=== PATIENT | male | born 1965 | race Caucasian/White ===

== ENCOUNTER 2016-12-21 17:07 | Inpatient (IN) | payer MEDICARE ==
[2016-12-21] MEDS ORDERED: Acetaminophen 325 MG Tab PO PRN (17:15)
[2016-12-21] MEDS ORDERED: Acetaminophen 650 MG Supp RECTAL PRN (17:15)
[2016-12-21] MEDS ORDERED: Naloxone 0.4 MG/ML SDV IV PRN (17:18)
[2016-12-21] MEDS ORDERED: HYDROmorphone/Normal Saline 15 MG/30 ML PCA IV PRN (17:18)
[2016-12-21] MEDS ORDERED: ALPRAZolam 0.5 MG Tab PO PRN (17:25)
[2016-12-21] MEDS ORDERED: Albuterol 8 GM Inhaler INH PRN (17:28)
[2016-12-21] MEDS: MVI, Adult with Vitamin K 10 ML, Magnesium Sulfate 2 GM, Folic Acid 1 MG, Thiamine 100 ... IV ONE ×10 (18:53→22:08)
[2016-12-21] MEDS ORDERED: Iopamidol 612 MG/ML 150 ML Bottle IV SCH (19:00)
[2016-12-21] MEDS ORDERED: Sodium Chloride 0.9% 80 ML IV SCH (19:00)
[2016-12-21] MEDS ORDERED: Iohexol 300 MG/ML 30 ML Bottle PO ONE (19:27)
[2016-12-21] MEDS ORDERED: Iohexol 647 MG/ML 10 ML SDV ONE (19:57)
[2016-12-21] MEDS ORDERED: Pantoprazole 40 MG Vial IV SCH (20:00)
[2016-12-21] MEDS ORDERED: Gabapentin 400 MG Cap PO SCH (21:00)
[2016-12-21] MEDS ORDERED: Ziprasidone HCl 20 MG Cap PO SCH (21:00)
[2016-12-21] MEDS ORDERED: BELSOMRA 20 MG PO SCH (21:00)
[2016-12-21] MEDS: Dextrose 5%-Lactated Ringers 1,000 ML IV SCH (21:01)
[2016-12-21] MEDS: Nicotine 21 MG/24 Hr Patch TRDERM SCH (23:14)
[2016-12-22] MEDS: Dextrose 5%-Lactated Ringers 1,000 ML IV SCH (03:49)
[2016-12-22 07:49] VITALS: BP 100/58
[2016-12-22] MEDS ORDERED: Gabapentin 300 MG Cap PO SCH (08:00)
[2016-12-22] MEDS ORDERED: Dextrose 5%-Lactated Ringers 1,000 ML IV SCH (08:30)
[2016-12-22] MEDS ORDERED: FLUoxetine 20 MG Cap PO SCH (09:00)
[2016-12-22] MEDS ORDERED: Docusate Sodium 100 MG Cap PO SCH (09:00)
[2016-12-22] MEDS: Nicotine 21 MG/24 Hr Patch TRDERM SCH (09:33)
[2016-12-22] MEDS ORDERED: Ziprasidone HCl 20 MG Cap PO SCH (12:00)
--- NOTE | 2016-12-23 18:38 | PN ---
DATE OF SERVICE: 12/22/2016 The patient has been afebrile with stable vital signs. Overnight, this abdominal pain has subsided. A CT scan yesterday was otherwise negative. He has been started on a regular diet and has been tolerating that well. Continue feeding him and make sure things are going okay in that regard and no further problems [place]. He likely would be ready for discharge home tomorrow. Bob Magallanes MD /[id number]
--- NOTE | 2016-12-24 04:06 | DISCH ---
ADMISSION DIAGNOSES: 1. Partial small bowel obstruction. 2. SP [id number]-[id number] gastric bypass surgery, unspecified surgical malabsorption, B12 deficiency. 3. History of addiction, anxiety, bipolar, depression, schizophrenia, panic attacks, history of psychiatric hospitalizations, suicide attempt, history of migraine headaches, seizures, arthritis, chronic constipation, hypercholesterolemia, high cholesterol, diabetes type 2. Vitamin D deficiency. DISCHARGE DIAGNOSIS: Resolution of partial small bowel obstruction. HISTORY: Dez Ambrosio is a 51-year-old male with a 2-week history of abdominal pain that was intermittent and increasingly gotten worse yesterday. He was seen in the clinic, urgent care, and was admitted to [facility] [place]. He did have a CT scan and CT scan was negative. He did have a large bowel movement and felt much better and requested to be discharged to home. REVIEW OF SYSTEMS: HEENT: Denies any headache, dizziness, or blurred vision. No upper respiratory infection signs and symptoms. NECK: Negative for neck pain or swelling. CHEST: No chest pain, shortness of breath, fast, irregular heart beat. LUNGS: No cough. ABDOMEN: Pain has improved. He denies pain now. There is no abdominal distention. Had a large bowel movement today. Denies any nausea or vomiting or excessive flatulence. : No UTI signs and symptoms. EXTREMITIES: Without joint pain or swelling. Full range of motion. NEURO: Denies any headache, dizziness, loss of coordination. SKIN: Without rash. Remainder of all 12 systems reviewed and negative for any other pertinent positives and negatives. PHYSICAL EXAMINATION: GENERAL: Dez Ambrosio is a 51-year-old male. Height is 6 feet 1 inch. Weight is 193 pounds. VITAL SIGNS: 98, 67, 16, blood pressure 100/58. HEENT: Negative. NECK: Supple. HEART: Regular rate and rhythm. LUNGS: Clear. ABDOMEN: Soft, nontender. EXTREMITIES: Without peripheral edema. NEURO: Intact. SKIN: Without rash. : Deferred. MUSCULOSKELETAL: Equal muscle strength in upper and lower extremities. DISPOSITION: Discharged to home. CONDITION: Stable and improving. FOLLOWUP: With Swathi Sanford PA-C, on 12/31/2016 at 9:00 a.m. MEDICATIONS: Resume all medications that he was taking prior to admission. DIET: Step-4 gastric bypass diet. Drink 8 to 10 glasses of water a day. ACTIVITY: Resume normal activity. Driving, may drive. Shower, may shower. Notify provider if any fever, increased pain, nausea, or vomiting. Discussed that if this pain would continue to come back that not all bowel obstructions are seen on CT scan.
== END 2016-12-22 11:00 | disposition home or self-care (01) | DRG 390 ==
LOC: JP.2SS 18:29
PROVIDERS: ADMIT Physician Assistant Medical; ATTEND Surgery
DX: K56.69 Other intestinal obstruction (principal); Z98.84 Bariatric surgery status; E53.8 Deficiency of other specified B group vitamins; F41.8 Other specified anxiety disorders; E78.5 Hyperlipidemia, unspecified; E11.9 Type 2 diabetes mellitus without complications; M19.90 Unspecified osteoarthritis, unspecified site; F17.210 Nicotine dependence, cigarettes, uncomplicated; J44.9 Chronic obstructive pulmonary disease, unspecified; K21.9 Gastro-esophageal reflux disease without esophagitis; I48.91 Unspecified atrial fibrillation
CPT/HCPCS: 36415; 74177; 82306; 82607; 82728; 82746; 83735; 84425; A9270-GY; C9113; J1170; J3411; J3475; J3490; J7030; J7042; J7120

== ENCOUNTER 2017-02-10 17:54 | Emergency (ER) | payer MEDICARE ==
[2017-02-10] MEDS ORDERED: Cyclobenzaprine 10 MG Tab PO ONE (18:36)
[2017-02-10] MEDS ORDERED: Ketorolac 30 MG/ML SDV IVPUSH ONE (18:36)
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
[2017-02-10 18:54] VITALS: BP 113/71
== END 2017-02-10 20:52 | disposition home or self-care (01) ==
LOC: JP.ED 17:54
DX: S29.019A Strain of muscle and tendon of unspecified wall of thorax, initial encounter (principal); R20.0 Anesthesia of skin; I48.91 Unspecified atrial fibrillation; E78.00 Pure hypercholesterolemia, unspecified; I10 Essential (primary) hypertension; J45.909 Unspecified asthma, uncomplicated; Z87.01 Personal history of pneumonia (recurrent); M19.90 Unspecified osteoarthritis, unspecified site; Z79.899 Other long term (current) drug therapy; F41.9 Anxiety disorder, unspecified; F32.9 Major depressive disorder, single episode, unspecified; E11.9 Type 2 diabetes mellitus without complications; Z98.890 Other specified postprocedural states; Z98.84 Bariatric surgery status; Z88.5 Allergy status to narcotic agent; Z88.8 Allergy status to other drugs, medicaments and biological substances; X58.XXXA Exposure to other specified factors, initial encounter; Y99.0 Civilian activity done for income or pay
CPT/HCPCS: 96374; 99283; A9270; J1885; 99284

== ENCOUNTER 2017-02-27 14:12 | Emergency (ER) | payer MEDICARE ==
[2017-02-27 14:27] VITALS: BP 102/60
[2017-02-27] MEDS ORDERED: Ketorolac 60 MG/2 ML SDV IM ONE (14:50)
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
== END 2017-02-27 15:30 | disposition home or self-care (01) ==
LOC: JP.ED 14:12
DX: M54.5 Low back pain (principal); M54.6 Pain in thoracic spine; I48.91 Unspecified atrial fibrillation; E78.00 Pure hypercholesterolemia, unspecified; I10 Essential (primary) hypertension; E11.9 Type 2 diabetes mellitus without complications; J45.909 Unspecified asthma, uncomplicated; M19.90 Unspecified osteoarthritis, unspecified site; G43.909 Migraine, unspecified, not intractable, without status migrainosus; F17.210 Nicotine dependence, cigarettes, uncomplicated; F41.9 Anxiety disorder, unspecified; F32.9 Major depressive disorder, single episode, unspecified; Z88.8 Allergy status to other drugs, medicaments and biological substances; Z79.899 Other long term (current) drug therapy; Z98.890 Other specified postprocedural states; Z87.01 Personal history of pneumonia (recurrent); Z98.84 Bariatric surgery status; Z88.5 Allergy status to narcotic agent
CPT/HCPCS: 96372; 99283; J1885

== ENCOUNTER 2017-07-23 00:53 | Emergency (ER) | payer MEDICARE, OTHER ==
[2017-07-23 01:15] VITALS: BP 118/58
[2017-07-23] MEDS ORDERED: HYDROmorphone 1 MG/ML Syringe IM ONE (01:51)
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
--- NOTE | 2017-07-23 09:00 | CR ---
Shoulder Comp Lt HISTORY: shoulder pain FINDINGS: No acute fracture or dislocation is identified. Bony architecture and glenohumeral joint are preserv ed. There are degenerative hypertrophic changes at the AC joint. Soft tissues are unremarkable. Left upper chest is clear. IMPRESSION: No acute left shoulder abnormality identified. There are degenerative changes at the AC joint.
== END 2017-07-23 02:04 | disposition home or self-care (01) ==
LOC: JP.ED 00:53
DX: M25.512 Pain in left shoulder (principal); I48.91 Unspecified atrial fibrillation; E78.00 Pure hypercholesterolemia, unspecified; I10 Essential (primary) hypertension; J45.909 Unspecified asthma, uncomplicated; E11.9 Type 2 diabetes mellitus without complications; F17.210 Nicotine dependence, cigarettes, uncomplicated; Z79.899 Other long term (current) drug therapy; M19.90 Unspecified osteoarthritis, unspecified site; G43.909 Migraine, unspecified, not intractable, without status migrainosus; Z98.890 Other specified postprocedural states; Z88.5 Allergy status to narcotic agent; Z98.84 Bariatric surgery status; Z88.8 Allergy status to other drugs, medicaments and biological substances
CPT/HCPCS: 73030; 96372; 99284; J1170; 99283

== ENCOUNTER 2017-10-24 23:40 | Emergency (ER) | payer MEDICARE, OTHER ==
[2017-10-25] MEDS ORDERED: Ondansetron 4 MG/2 ML SDV IVPUSH ONE (00:06)
[2017-10-25] MEDS ORDERED: Sodium Chloride 0.9% 1,000 ML IV SCH (00:15)
--- NOTE | 2017-10-25 00:31 | EDM.PDOC ---
ED HPI GENERAL MEDICAL PROBLEM - General Chief Complaint: Abdominal Pain Stated Complaint: ABD PAIN Time Seen by Provider: 10/25/17 00:29 Source of Information: Reports: Patient History Limitations: Reports: No Limitations - History of Present Illness INITIAL COMMENTS - FREE TEXT/NARRATIVE: pt arrived having severe pain in the left upper abdoman. he had a normal bm this am. he has vomited several timea. Onset: Today Duration: Hour(s): Location: Reports: Abdomen Associated Symptoms: Reports: Nausea/Vomiting, Weakness abd pain Pain Score (Numeric/FACES): 8 - Related Data Allergies Allergy/AdvReac Type Severity Reaction Status Date / Time codeine Allergy Rash Verified 09/22/17 08:44 lithium Allergy Other Verified 10/25/17 00:00 naproxen AdvReac Nausea Verified 09/22/17 08:44 simvastatin AdvReac Muscle Verified 09/22/17 08:44 Aches Home Meds: Home Meds Ziprasidone HCl [Geodon] 40 mg PO DAILY 01/15/14 [History] Ziprasidone HCl [Geodon] 80 mg PO BEDTIME 08/06/14 [History] Multivitamins with Iron/Min [Cerovite Jr] 1 tab PO BID 07/30/15 [History] Suvorexant [Belsomra] 20 mg PO BEDTIME 12/08/15 [History] ALPRAZolam 2 mg PO 5XDAY 07/12/16 [History] B12/Levomefolate Calcium/B-6 [Foltx Tablet] 1 each PO DAILY 07/12/16 [History] Benztropine Mesylate 0.5 mg PO BID 07/12/16 [History] Ca Carbonate/Vitamin D3/Vit K [Calcium + D Soft Chewable Tab] 2 tab PO DAILY [History] FLUoxetine HCl [Fluoxetine HCl] 20 mg PO DAILY 07/12/16 [History] tiZANidine [Zanaflex] 4 mg PO Q6H PRN 07/12/16 [History] Acetaminophen [Tylenol Extra Strength] 500 mg PO Q4HR 02/27/17 [History] Diclofenac Sodium [Voltaren] 50 mg PO TID 02/27/17 [History] Celecoxib [CeleBREX] 100 mg PO QID 07/23/17 [History] Amoxicillin [Amoxil] 1 tab PO BID 10/25/17 [History] Docusate Sodium [Colace] 100 mg PO Q48H 10/25/17 [History] Past Medical History HEENT History: Reports: Hard of Hearing, Impaired Vision, Otitis Media Cardiovascular History: Reports: Afib, High Cholesterol, Hypertension Respiratory History: Reports: Asthma, Bronchitis, Recurrent, Pneumonia, Recurrent Gastrointestinal History: Reports: Bowel Obstruction, Chronic Constipation, Chronic Diarrhea, Hepatitis, Hiatal Hernia Other Gastrointestinal History: Hepatitis A Genitourinary History: Reports: Renal Calculus Musculoskeletal History: Reports: Arthritis, Back Pain, Chronic, Fracture Other Musculoskeletal History: chronic leg pains, bone spurs left shoulder Neurological History: Reports: Concussion, Head Trauma, Migraines, Seizure Other Neuro History: 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 Psychiatric History: Reports: Addiction, Anxiety, Bipolar, Depression, Panic Attack, Psych Hospitalization(s), Schizophrenia, Suicide Attempt, Suicidal Ideation Endocrine/Metabolic History: Reports: Diabetes, Type II, Vitamin D Deficiency, Other (See Below) Other Endocrine/Metabolic History: not Diabetic since bariatric procedure Hematologic History: Reports: B12 Deficiency, Folic Acid Dermatologic History: Reports: Other (See Below) Other Dermatologic History: teeny adverse acollor - Infectious Disease History Infectious Disease History: Reports: Hepatitis A - Past Surgical History HEENT Surgical History: Reports: Eye Surgery, Oral Surgery GI Surgical History: Reports: Bariatric Procedure Musculoskeletal Surgical History: Reports: Shoulder Surgery, Other (See Below) Other Musculoskeletal Surgeries/Procedures:: hip surgery. left ankle surgery. left shoulder bone spurs Social & Family History - Family History Family Medical History: Noncontributory - Tobacco Use Smoking Status *Q: Current Every Day Smoker Years of Tobacco use: 35 Packs/Tins Daily: 1 Used Tobacco, but Quit: No Second Hand Smoke Exposure: Yes - Caffeine Use Caffeine Use: Reports: Coffee, Soda, Tea - Alcohol Use Days Per Week of Alcohol Use: 0 - Recreational Drug Use Recreational Drug Use: Yes Drug Use in Last 12 Months: Yes Recreational Drug Type: Reports: Marijuana/Hashish Other Recreational Drug Type: Pt. has a prescription for medical marijuana Recreational Drug Use Frequency: Daily Recreational Drug Last Use: t-1 ED ROS GENERAL - Review of Systems Review Of Systems: See Below Constitutional: Reports: No Symptoms HEENT: Reports: No Symptoms Respiratory: Reports: No Symptoms Cardiovascular: Reports: No Symptoms Endocrine: Reports: No Symptoms GI/Abdominal: Reports: Abdominal Pain, Other (pt is having severe pain in left upper abdoman. ) : Reports: No Symptoms, Other ( History of a kidney stone. ) Musculoskeletal: Reports: No Symptoms Neurological: Reports: No Symptoms ED EXAM, GI/ABD - Physical Exam Exam: See Below Text/Narrative:: pt arrived with pain in the left upper abdoman. He has not been able to keep any food down today. He ate chicken strips and a cheese burger and vomited both of them. He has a past history of a gastric by pass. Exam Limited By: No Limitations General Appearance: Alert, Anxious, Mild Distress Ears: Normal TMs Nose: Normal Inspection Throat/Mouth: Normal Inspection Head: Atraumatic Neck: Normal Inspection Respiratory/Chest: No Respiratory Distress Cardiovascular: Regular Rate, Rhythm GI/Abdominal Exam: Tender, Other (pt has tenderness in the left upper abdoman. His flat and upright reveal some dilated loop of bowel in this area. ) (Male) Exam: Deferred Back Exam: Normal Inspection Extremities: Normal Inspection Neurological: Alert, Oriented, Normal Cognition Psychiatric: Normal Affect Course - Vital Signs Last Recorded V/S: Last Vital Signs Temp 36.3 C 10/25/17 02:55 Pulse 60 10/25/17 02:55 Resp 16 10/25/17 02:55 BP 109/63 10/25/17 02:55 Pulse Ox 96 10/25/17 02:55 - Orders/Labs/Meds Orders: Active Orders 24 hr Category Date Time Status Abdomen Pelvis w Cont [CT] Stat Exams 10/25/17 01:17 Taken Abdomen Series w Chest 1V [CR] Urgent Exams 10/25/17 00:28 Taken Sodium Chloride 0.9% [Normal Saline] 1,000 ml Med 10/25/17 00:15 Active IV ASDIRECTED Medication Orders Sodium Chloride (Normal Saline) 1,000 mls @ 999 mls/hr IV ASDIRECTED NATY Last Admin: 10/25/17 00:16 Dose: 999 mls/hr Labs: Laboratory Tests 10/25/17 10/25/17 10/25/17 Range/Units 00:17 00:17 00:17 WBC 4.0 L (4.5-11.0) K/uL RBC 4.47 (4.30-5.90) M/uL Hgb 13.3 (12.0-15.0) g/dL Hct 39.3 L (40.0-54.0) % MCV 88 (80-98) fL MCH 30 (27-31) pg MCHC 34 (32-36) % Plt Count 174 (150-400) K/uL Neut % (Auto) 50 (36-66) % Lymph % (Auto) 33 (24-44) % [place] % (Auto) 16 H (2-6) % Eos % (Auto) 1 L (2-4) % Baso % (Auto) 0 (0-1) % Sodium 142 (140-148) mmol/L Potassium 3.6 (3.6-5.2) mmol/L Chloride 105 (100-108) mmol/L Carbon Dioxide 26 (21-32) mmol/L Anion Gap 11.1 (5.0-14.0) mmol/L BUN 9 (7-18) mg/dL Creatinine 0.9 (0.8-1.3) mg/dL Est Cr Clr Drug Dosing 110.97 mL/min Estimated GFR (MDRD) > 60 (>60) Glucose 99 (74-106) mg/dL Calcium 8.4 L (8.5-10.1) mg/dL Total Bilirubin 0.4 (0.2-1.0) mg/dL AST 38 H (15-37) U/L ALT 57 (12-78) U/L Alkaline Phosphatase 58 (46-116) U/L C-Reactive Protein (0.0-0.3) mg/dL Total Protein 6.2 L (6.4-8.2) g/dL Albumin 3.6 (3.4-5.0) g/dL Globulin 2.6 (2.3-3.5) g/dL Albumin/Globulin Ratio 1.4 (1.2-2.2) Amylase (25-115) U/L Lipase 190 (73-393) U/L Urine Color Urine Appearance Urine pH (4.5-8.0) Ur Specific [place] (1.008-1.030) Urine Protein (NEGATIVE) mg/dL Urine Glucose (UA) (NEGATIVE) mg/dL Urine Ketones (NEGATIVE) mg/dL Urine Occult Blood (NEGATIVE) Urine Nitrite (NEGAITVE) Urine Bilirubin (NEGATIVE) Urine Urobilinogen (NORMAL) mg/dL Ur Leukocyte Esterase (NEGATIVE) Urine RBC (0-5) Urine WBC (0-5) Ur Epithelial Cells Amorphous Sediment Urine Bacteria Urine Mucus 10/25/17 10/25/17 10/25/17 Range/Units 00:17 00:28 01:02 WBC (4.5-11.0) K/uL RBC (4.30-5.90) M/uL Hgb (12.0-15.0) g/dL Hct (40.0-54.0) % MCV (80-98) fL MCH (27-31) pg MCHC (32-36) % Plt Count (150-400) K/uL Neut % (Auto) (36-66) % Lymph % (Auto) (24-44) % [place] % (Auto) (2-6) % Eos % (Auto) (2-4) % Baso % (Auto) (0-1) % Sodium (140-148) mmol/L Potassium (3.6-5.2) mmol/L Chloride (100-108) mmol/L Carbon Dioxide (21-32) mmol/L Anion Gap (5.0-14.0) mmol/L BUN (7-18) mg/dL Creatinine (0.8-1.3) mg/dL Est Cr Clr Drug Dosing mL/min Estimated GFR (MDRD) (>60) Glucose (74-106) mg/dL Calcium (8.5-10.1) mg/dL Total Bilirubin (0.2-1.0) mg/dL AST (15-37) U/L ALT (12-78) U/L Alkaline Phosphatase (46-116) U/L C-Reactive Protein 0.37 H (0.0-0.3) mg/dL Total Protein (6.4-8.2) g/dL Albumin (3.4-5.0) g/dL Globulin (2.3-3.5) g/dL Albumin/Globulin Ratio (1.2-2.2) Amylase 34 (25-115) U/L Lipase (73-393) U/L Urine Color [place] Urine Appearance Clear Urine pH 5.0 (4.5-8.0) Ur Specific [place] 1.020 (1.008-1.030) Urine Protein 30 H (NEGATIVE) mg/dL Urine Glucose (UA) Normal (NEGATIVE) mg/dL Urine Ketones 15 H (NEGATIVE) mg/dL Urine Occult Blood Negative (NEGATIVE) Urine Nitrite Negative (NEGAITVE) Urine Bilirubin Small (NEGATIVE) Urine Urobilinogen 8 (NORMAL) mg/dL Ur Leukocyte Esterase Small (NEGATIVE) Urine RBC Not seen (0-5) Urine WBC 0-5 (0-5) Ur Epithelial Cells Not seen Amorphous Sediment Rare Urine Bacteria Not seen Urine Mucus Not seen Meds: Medications Generic Name Dose Route Start Last Admin Trade Name Freq PRN Reason Stop Dose Admin Sodium Chloride 1,000 mls @ 999 mls/hr 10/25/17 00:15 10/25/17 00:16 Normal Saline IV 999 mls/hr ASDIRECTED NATY Administration Discontinued Medications Generic Name Dose Route Start Last Admin Trade Name Freq PRN Reason Stop Dose Admin Sodium Chloride 80 mls @ 4 mls/sec 10/25/17 01:42 10/25/17 01:53 Normal Saline IV 10/25/17 01:43 4 mls/sec ASDIRECTED STA Administration Iopamidol 132 ml 10/25/17 01:42 10/25/17 01:53 Isovue-300 (61%) IV 10/25/17 01:43 150 ml . DIRECTED STA Administration Ketorolac Tromethamine 30 mg 10/25/17 03:03 Toradol IVPUSH 10/25/17 03:04 ONETIME ONE Ondansetron HCl 4 mg 10/25/17 00:06 10/25/17 00:23 Zofran IVPUSH 10/25/17 00:07 4 mg ONETIME ONE Administration Pantoprazole Sodium 40 mg 10/25/17 03:03 Protonix Iv IVPUSH 10/25/17 03:04 ONETIME ONE - Re-Assessments/Exams Free Text/Narrative Re-Assessment/Exam: 10/25/17 03:08 cat scan of the abdoman shows no acute findings. His pain is better and he is rating it a 5. 10/25/17 03:08 pt was given protonix and he was given torodol Departure - Departure Time of Disposition: 03:09 Disposition: Home, Self-Care 01 Condition: Fair Clinical Impression: Abdominal pain - Discharge Information Referrals: Pieter Kim MD [Primary Care Provider] - Forms: ED Department Discharge Care Plan Goals: stick with a full liquid diet, zoforan 4 mg q6h prn for nausea, if pain gets worse rtc. No work tomorrow. - My Orders Last 24 Hours: My Active Orders 10/25/17 00:15 Sodium Chloride 0.9% [Normal Saline] 1,000 ml IV ASDIRECTED 10/25/17 00:28 Abdomen Series w Chest 1V [CR] Urgent 10/25/17 01:17 Abdomen Pelvis w Cont [CT] Stat - Assessment/Plan Last 24 Hours: My Active Orders 10/25/17 00:15 Sodium Chloride 0.9% [Normal Saline] 1,000 ml IV ASDIRECTED 10/25/17 00:28 Abdomen Series w Chest 1V [CR] Urgent 10/25/17 01:17 Abdomen Pelvis w Cont [CT] Stat
[2017-10-25] MEDS ORDERED: Iopamidol 612 MG/ML 150 ML Bottle IV STA (01:42)
[2017-10-25] MEDS ORDERED: Sodium Chloride 0.9% 80 ML IV STA (01:42)
[2017-10-25 02:56] VITALS: BP 109/63
[2017-10-25] MEDS ORDERED: Ketorolac 30 MG/ML SDV IVPUSH ONE (03:03)
[2017-10-25] MEDS ORDERED: Pantoprazole 40 MG Vial IVPUSH ONE (03:03)
--- NOTE | 2017-10-25 10:33 | CR ---
Abdomen Series w Chest 1V HISTORY: Pain. COMPARISON: CT abdomen pelvis 12/21/2016. FINDINGS: Cardiac size is normal no focal infiltrates or effusions. The bowel gas pattern is nonobstructive. There is diffuse gas within the large and small bowel could represent mild ileus. No free air. No suspicious calcifications. Impression: 1. Negative chest. 2. Possible mild ileus bowel gas pattern. No obstruction or free air seen.
== END 2017-10-25 03:27 | disposition home or self-care (01) ==
LOC: JP.ED 23:40
DX: R10.12 Left upper quadrant pain (principal); F17.210 Nicotine dependence, cigarettes, uncomplicated; I10 Essential (primary) hypertension; E78.00 Pure hypercholesterolemia, unspecified; F41.0 Panic disorder [episodic paroxysmal anxiety]; F31.9 Bipolar disorder, unspecified; E11.9 Type 2 diabetes mellitus without complications; Z79.899 Other long term (current) drug therapy; Z88.5 Allergy status to narcotic agent; Z88.8 Allergy status to other drugs, medicaments and biological substances
CPT/HCPCS: 36415; 74022; 74177; 80053; 81001; 82150; 83690; 85025; 86140; 96361; 96374; 96375; 99285; C9113; J1885; J2405; J7030; J7040

== ENCOUNTER 2017-11-24 18:47 | Emergency (ER) | payer OTHER ==
[2017-11-24 19:08] VITALS: BP 88/53
[2017-11-24] MEDS ORDERED: Acetaminophen 500 MG Tab PO ONE (19:20)
[2017-11-24] MEDS ORDERED: Aspirin 81 MG Tab.Chew PO ONE (19:20)
--- NOTE | 2017-11-24 19:28 | EDM.PDOC ---
ED HPI GENERAL MEDICAL PROBLEM - General Chief Complaint: Cardiovascular Problem Stated Complaint: HEADACHE/BACKACHE Time Seen by Provider: 11/24/17 19:15 Source of Information: Reports: Patient, Old Records, RN History Limitations: Reports: No Limitations - History of Present Illness INITIAL COMMENTS - FREE TEXT/NARRATIVE: 52 yo male 1 ppd smoker was working this evening at [employer] (formerly known as [employer]) and developed rapid heart rate with some mild chest pain and sweating. He has a pHx of paroxysmal afib but thinks this was different. Sx's lasted about 20 min before mostly resolving. Here now he still has a mild frontal COBB and some upper back tightness. No current nausea or SOB. Denies heavy ETOH use. Is not aware of a hx of CAD. Onset: Today Onset Date: 11/24/17 Duration: Minutes: (about 20) Location: Reports: Head (forehead ache), Chest, Back (upper) Quality: Reports: Ache Severity: Moderate Improves with: Reports: Other (? time) Worsens with: Reports: Other (unknown) Context: Reports: Other (Hx reportedly of paroxysmal afib) Associated Symptoms: Reports: Chest Pain, Diaphoresis, Headaches. Denies: Fever /Chills, Nausea/Vomiting, Rash, Shortness of Breath Treatments [employer]: Reports: Other (see below) (none) Left Arm Pain Score (Numeric/FACES): 5 - Related Data Allergies Allergy/AdvReac Type Severity Reaction Status Date / Time codeine Allergy Rash Verified 09/22/17 08:44 lithium Allergy Other Verified 10/25/17 00:00 naproxen AdvReac Nausea Verified 09/22/17 08:44 simvastatin AdvReac Muscle Verified 09/22/17 08:44 Aches Home Meds: Home Meds Ziprasidone HCl [Geodon] 40 mg PO DAILY 01/15/14 [History] Ziprasidone HCl [Geodon] 80 mg PO BEDTIME 08/06/14 [History] Suvorexant [Belsomra] 20 mg PO BEDTIME 12/08/15 [History] ALPRAZolam 2 mg PO 5XDAY 07/12/16 [History] tiZANidine [Zanaflex] 4 mg PO Q6H PRN 07/12/16 [History] Acetaminophen [Tylenol Extra Strength] 500 mg PO Q4HR 02/27/17 [History] Celecoxib [CeleBREX] 100 mg PO QID 07/23/17 [History] Docusate Sodium [Colace] 100 mg PO Q48H 10/25/17 [History] Past Medical History HEENT History: Reports: Hard of Hearing, Impaired Vision, Otitis Media Cardiovascular History: Reports: Afib, High Cholesterol, Hypertension Respiratory History: Reports: Asthma, Bronchitis, Recurrent, Pneumonia, Recurrent Gastrointestinal History: Reports: Bowel Obstruction, Chronic Constipation, Chronic Diarrhea, Hepatitis, Hiatal Hernia Other Gastrointestinal History: Hepatitis A Genitourinary History: Reports: Renal Calculus Musculoskeletal History: Reports: Arthritis, Back Pain, Chronic, Fracture Other Musculoskeletal History: chronic leg pains, bone spurs left shoulder Neurological History: Reports: Concussion, Head Trauma, Migraines, Seizure Other Neuro History: 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 Psychiatric History: Reports: Addiction, Anxiety, Bipolar, Depression, Panic Attack, Psych Hospitalization(s), Schizophrenia, Suicide Attempt, Suicidal Ideation Endocrine/Metabolic History: Reports: Diabetes, Type II, Vitamin D Deficiency, Other (See Below) Other Endocrine/Metabolic History: not Diabetic since bariatric procedure Hematologic History: Reports: B12 Deficiency, Folic Acid Dermatologic History: Reports: Other (See Below) Other Dermatologic History: teeny adverse acollor - Infectious Disease History Infectious Disease History: Reports: Hepatitis A - Past Surgical History HEENT Surgical History: Reports: Eye Surgery, Oral Surgery GI Surgical History: Reports: Bariatric Procedure Musculoskeletal Surgical History: Reports: Shoulder Surgery, Other (See Below) Other Musculoskeletal Surgeries/Procedures:: hip surgery. left ankle surgery. left shoulder bone spurs Social & Family History - Family History Family Medical History: Noncontributory - Tobacco Use Smoking Status *Q: Current Every Day Smoker Years of Tobacco use: 35 Packs/Tins Daily: 1 Used Tobacco, but Quit: No Second Hand Smoke Exposure: Yes - Caffeine Use Caffeine Use: Reports: Soda - Alcohol Use Days Per Week of Alcohol Use: 0 - Recreational Drug Use Recreational Drug Use: Yes Drug Use in Last 12 Months: Yes Recreational Drug Type: Reports: Marijuana/Hashish Other Recreational Drug Type: medical Recreational Drug Use Frequency: Daily Recreational Drug Last Use: t-1 ED ROS GENERAL - Review of Systems Review Of Systems: See Below Constitutional: Reports: No Symptoms HEENT: Reports: No Symptoms Respiratory: Reports: No Symptoms Cardiovascular: Reports: Chest Pain (now gone), Lightheadedness. Denies: Dyspnea on Exertion Endocrine: Reports: No Symptoms GI/Abdominal: Reports: No Symptoms : Reports: No Symptoms Musculoskeletal: Reports: No Symptoms Skin: Reports: Diaphoresis Neurological: Reports: No Symptoms Psychiatric: Reports: No Symptoms ED EXAM, GENERAL - Physical Exam Exam: See Below Exam Limited By: No Limitations General Appearance: Alert, WD/WN, No Apparent Distress Eye Exam: Bilateral Eye: Normal Inspection Ears: Normal External Exam, Normal Canal, Hearing Grossly Normal Ear Exam: Bilateral Ear: Auricle Normal, Canal Normal Nose: Normal Inspection, Normal Mucosa, No Blood Throat/Mouth: Normal Inspection, Normal Lips, Normal Oropharynx, Normal Voice, No Airway Compromise Head: Atraumatic, Normocephalic Neck: Normal Inspection, Supple, Non-Tender Respiratory/Chest: No Respiratory Distress, Lungs Clear, Normal Breath Sounds, No Accessory Muscle Use Cardiovascular: Regular Rate, Rhythm, No Edema GI/Abdominal: Normal Bowel Sounds, Soft, Non-Tender, No Distention Back Exam: Normal Inspection. No: CVA Tenderness (R), CVA Tenderness (L) Extremities: Normal Inspection, Normal Range of Motion, Non-Tender, No Pedal Edema Neurological: Alert, Oriented, CN II-XII Intact, Normal Cognition, No Motor/ Sensory Deficits Psychiatric: Normal Affect, Normal Mood Skin Exam: Warm, Dry, Intact, Normal Color, No Rash Lymphatic: No Adenopathy EKG INTERPRETATION EKG Date: 11/24/17 Time: 19:25 Rhythm: NSR Rate (Beats/Min): 79 [place]: Normal P-Wave: Present QRS: Normal ST-T: Normal QT: Normal Comparison: No Change Course - Vital Signs Last Recorded V/S: Last Vital Signs Temp 36.1 C 11/24/17 19:06 Pulse 51 L 11/24/17 19:06 Resp 29 H 11/24/17 19:06 BP 88/53 L 11/24/17 19:06 Pulse Ox 94 L 11/24/17 19:06 - Orders/Labs/Meds Orders: Active Orders 24 hr Category Date Time Status Cardiac Monitoring [RC] .As Directed Care 11/24/17 18:58 Active EKG Documentation Completion [RC] ASDIRECTED Care 11/24/17 19:22 Active Magnesium Oxide Med 11/24/17 20:12 Once 800 mg PO ONETIME ONE Potassium Chloride [Klor-Con M20] Med 11/24/17 20:12 Once 20 meq PO ONETIME ONE EKG 12 Lead [EK] Routine Ther 11/24/17 19:22 Ordered Medication Orders Magnesium Oxide (Magnesium Oxide) 800 mg PO ONETIME ONE Stop: 11/24/17 20:13 Potassium Chloride (Klor-Con M20) 20 meq PO ONETIME ONE Stop: 11/24/17 20:13 Labs: Laboratory Tests 11/24/17 11/24/17 11/24/17 Range/Units 19:30 19:31 19:31 WBC 7.0 (4.5-11.0) K/uL RBC 3.96 L (4.30-5.90) M/uL Hgb 11.8 L (12.0-15.0) g/dL Hct 36.2 L (40.0-54.0) % MCV 91 (80-98) fL MCH 30 (27-31) pg MCHC 33 (32-36) % Plt Count 185 (150-400) K/uL Sodium 139 L (140-148) mmol/L Potassium 3.4 L (3.6-5.2) mmol/L Chloride 105 (100-108) mmol/L Carbon Dioxide 26 (21-32) mmol/L Anion Gap 11.4 (5.0-14.0) mmol/L BUN 8 (7-18) mg/dL Creatinine 0.7 L (0.8-1.3) mg/dL Est Cr Clr Drug Dosing 142.68 mL/min Estimated GFR (MDRD) > 60 (>60) Glucose 122 H (74-106) mg/dL Calcium 8.3 L (8.5-10.1) mg/dL Magnesium 1.6 L (1.8-2.4) mg/dL Troponin I (0.000-0.056) ng/mL 11/24/17 Range/Units 19:31 WBC (4.5-11.0) K/uL RBC (4.30-5.90) M/uL Hgb (12.0-15.0) g/dL Hct (40.0-54.0) % MCV (80-98) fL MCH (27-31) pg MCHC (32-36) % Plt Count (150-400) K/uL Sodium (140-148) mmol/L Potassium (3.6-5.2) mmol/L Chloride (100-108) mmol/L Carbon Dioxide (21-32) mmol/L Anion Gap (5.0-14.0) mmol/L BUN (7-18) mg/dL Creatinine (0.8-1.3) mg/dL Est Cr Clr Drug Dosing mL/min Estimated GFR (MDRD) (>60) Glucose (74-106) mg/dL Calcium (8.5-10.1) mg/dL Magnesium (1.8-2.4) mg/dL Troponin I < 0.017 (0.000-0.056) ng/mL Meds: Medications Generic Name Dose Route Start Last Admin Trade Name Freq PRN Reason Stop Dose Admin Magnesium Oxide 800 mg 11/24/17 20:12 Magnesium Oxide PO 11/24/17 20:13 ONETIME ONE Potassium Chloride 20 meq 11/24/17 20:12 Klor-Con M20 PO 11/24/17 20:13 ONETIME ONE Discontinued Medications Generic Name Dose Route Start Last Admin Trade Name Freq PRN Reason Stop Dose Admin Acetaminophen 1,000 mg 11/24/17 19:20 11/24/17 19:27 Tylenol Extra Strength PO 11/24/17 19:21 1,000 mg ONETIME ONE Administration Aspirin 324 mg 11/24/17 19:20 11/24/17 19:27 Aspirin PO 11/24/17 19:21 324 mg ONETIME ONE Administration Departure - Departure Time of Disposition: 20:20 Disposition: Home, Self-Care 01 Condition: Fair Clinical Impression: Hypomagnesemia, Hypokalemia, Tachycardia Referrals: Pieter Kim MD [Primary Care Provider] - Forms: ED Department Discharge - My Orders Last 24 Hours: My Active Orders 11/24/17 18:58 Cardiac Monitoring [RC] .As Directed 11/24/17 19:22 EKG Documentation Completion [RC] ASDIRECTED EKG 12 Lead [EK] Routine 11/24/17 20:12 Magnesium Oxide 800 mg PO ONETIME ONE Potassium Chloride [Klor-Con M20] 20 meq PO ONETIME ONE - Assessment/Plan Last 24 Hours: My Active Orders 11/24/17 18:58 Cardiac Monitoring [RC] .As Directed 11/24/17 19:22 EKG Documentation Completion [RC] ASDIRECTED EKG 12 Lead [EK] Routine 11/24/17 20:12 Magnesium Oxide 800 mg PO ONETIME ONE Potassium Chloride [Klor-Con M20] 20 meq PO ONETIME ONE
[2017-11-24] MEDS ORDERED: Magnesium Oxide 400 MG Tab PO ONE (20:12)
[2017-11-24] MEDS ORDERED: Potassium Chloride 20 MEQ Tab.ER PO ONE (20:12)
== END 2017-11-24 20:37 | disposition home or self-care (01) ==
LOC: JP.ED 18:47
DX: R00.0 Tachycardia, unspecified (principal); E87.6 Hypokalemia; E83.42 Hypomagnesemia; F17.210 Nicotine dependence, cigarettes, uncomplicated; I10 Essential (primary) hypertension; E78.00 Pure hypercholesterolemia, unspecified; F31.9 Bipolar disorder, unspecified; E11.9 Type 2 diabetes mellitus without complications; Z79.899 Other long term (current) drug therapy; Z88.8 Allergy status to other drugs, medicaments and biological substances; Z88.5 Allergy status to narcotic agent
CPT/HCPCS: 36415; 80048; 83735; 84484; 85027; 93005; 99284; A9270

== ENCOUNTER 2018-01-11 18:03 | Emergency (ER) | payer OTHER, MEDICARE ==
[2018-01-11] MEDS ORDERED: HYDROmorphone 0.5 MG/0.5 ML Syringe IVPUSH ONE ×2 (18:10→21:49)
[2018-01-11] MEDS ORDERED: Sodium Chloride 0.9% 1,000 ML IV SCH ×3 (18:15→20:45)
--- NOTE | 2018-01-11 18:41 | EDM.PDOC ---
ED HPI GENERAL MEDICAL PROBLEM - General Chief Complaint: Abdominal Pain Stated Complaint: MED[facility] Time Seen by Provider: 01/11/18 18:15 Source of Information: Reports: Patient History Limitations: Reports: No Limitations, Other (pt is having abdomanal pain. ) - History of Present Illness INITIAL COMMENTS - FREE TEXT/NARRATIVE: PT HAS A HISTORY OF 2 BOWEL OBSTRUCTIONS SINCE HIS RNY IN 2013. hE HAD A SUDDEN ONSET OF ABDOMANAL PAIN IN THE EPIGASTRIC AREA AND RADINTING TO HIS BACK tHIS ABOUT A 4-5 NOW BUT WAS VERY SEVERE EARLIER. hE DID NOT VOMIT. hE HAD A HARD STOOL FOLLOWED BY A LARGE LOOSE STOOL. hE FELT OK EARLIER IN THE DAY. Onset: Today, Sudden Duration: Hour(s):, Getting Worse Location: Reports: Abdomen Associated Symptoms: Reports: Weakness Abdomen Pain Score (Numeric/FACES): 5 - Related Data Allergies Allergy/AdvReac Type Severity Reaction Status Date / Time codeine Allergy Rash Verified 01/11/18 18:13 lithium Allergy Other Verified 01/11/18 18:13 naproxen AdvReac Nausea Verified 01/11/18 18:13 simvastatin AdvReac Muscle Verified 01/11/18 18:13 Aches Home Meds: Home Meds Ziprasidone HCl [Geodon] 40 mg PO DAILY 01/15/14 [History] Ziprasidone HCl [Geodon] 80 mg PO BEDTIME 08/06/14 [History] Suvorexant [Belsomra] 20 mg PO BEDTIME 12/08/15 [History] ALPRAZolam 2 mg PO 5XDAY 07/12/16 [History] tiZANidine [Zanaflex] 4 mg PO Q6H PRN 07/12/16 [History] Acetaminophen [Tylenol Extra Strength] 500 mg PO Q4HR 02/27/17 [History] Docusate Sodium [Colace] 100 mg PO Q48H 10/25/17 [History] Cannabis 01/11/18 [History] Past Medical History HEENT History: Reports: Hard of Hearing, Impaired Vision, Otitis Media Cardiovascular History: Reports: Afib, High Cholesterol, Hypertension Respiratory History: Reports: Asthma, Bronchitis, Recurrent, Pneumonia, Recurrent Gastrointestinal History: Reports: Bowel Obstruction, Chronic Constipation, Chronic Diarrhea, Hepatitis, Hiatal Hernia Other Gastrointestinal History: Hepatitis A Genitourinary History: Reports: Renal Calculus Musculoskeletal History: Reports: Arthritis, Back Pain, Chronic, Fracture Other Musculoskeletal History: chronic leg pains, bone spurs left shoulder Neurological History: Reports: Concussion, Head Trauma, Migraines, Seizure Other Neuro History: 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 Psychiatric History: Reports: Addiction, Anxiety, Bipolar, Depression, Panic Attack, Psych Hospitalization(s), Schizophrenia, Suicide Attempt, Suicidal Ideation Endocrine/Metabolic History: Reports: Diabetes, Type II, Vitamin D Deficiency, Other (See Below) Other Endocrine/Metabolic History: not Diabetic since bariatric procedure Hematologic History: Reports: B12 Deficiency, Folic Acid Dermatologic History: Reports: Other (See Below) Other Dermatologic History: teeny adverse acollor - Infectious Disease History Infectious Disease History: Reports: Hepatitis A - Past Surgical History HEENT Surgical History: Reports: Eye Surgery, Oral Surgery GI Surgical History: Reports: Bariatric Procedure Musculoskeletal Surgical History: Reports: Shoulder Surgery, Other (See Below) Other Musculoskeletal Surgeries/Procedures:: hip surgery. left ankle surgery. left shoulder bone spurs Social & Family History - Family History Family Medical History: Noncontributory - Tobacco Use Smoking Status *Q: Current Every Day Smoker Years of Tobacco use: 37 Packs/Tins Daily: 1 Used Tobacco, but Quit: No Second Hand Smoke Exposure: Yes - Caffeine Use Caffeine Use: Reports: Coffee, Soda, Tea - Alcohol Use Days Per Week of Alcohol Use: 0 - Recreational Drug Use Recreational Drug Use: Yes Drug Use in Last 12 Months: Yes Recreational Drug Type: Reports: Methamphetamine Other Recreational Drug Type: medical Recreational Drug Use Frequency: Daily Recreational Drug Last Use: t-1 ED ROS GENERAL - Review of Systems Review Of Systems: See Below Constitutional: Reports: No Symptoms, Weakness HEENT: Reports: No Symptoms Respiratory: Reports: No Symptoms Cardiovascular: Reports: No Symptoms Endocrine: Reports: No Symptoms GI/Abdominal: Reports: Abdominal Pain, Other (PT DEVELOPED SEVERE UPPER ABDOMANASL PAIN. tHIS PAIN DID RADIATE TO HIS BACK. ) : Reports: No Symptoms Musculoskeletal: Reports: No Symptoms, Back Pain Skin: Reports: No Symptoms Neurological: Reports: No Symptoms ED EXAM, GI/ABD - Physical Exam Exam: See Below Text/Narrative:: PT ARRIVED WITH PAIN IN THE UPPER ABDOMAN WHICH IS RADIATING TO HIS BACK. hE IS POST RNY. Exam Limited By: No Limitations General Appearance: Alert, Anxious, Moderate Distress Eyes: Bilateral: Normal Appearance, EOMI Ears: Normal TMs Nose: Normal Inspection Throat/Mouth: Normal Inspection Head: Atraumatic Neck: Normal Inspection Respiratory/Chest: No Respiratory Distress Cardiovascular: Regular Rate, Rhythm GI/Abdominal Exam: Other (PT IS TENDER IN THE UPPER ABDOMAN. HE IS NOT VOMITING. hE DID HAVE A STOOL PRIOR TO ARRIVAL. ) (Male) Exam: Deferred Rectal (Males) Exam: Deferred Back Exam: Normal Inspection Extremities: Normal Inspection Neurological: Alert, Oriented, Normal Cognition Psychiatric: Normal Affect Course - Vital Signs Last Recorded V/S: Last Vital Signs Temp 36.8 C 01/11/18 21:55 Pulse 58 L 01/11/18 21:55 Resp 14 01/11/18 21:55 BP 98/57 L 01/11/18 21:55 Pulse Ox 99 01/11/18 21:55 - Orders/Labs/Meds Orders: Active Orders 24 hr Category Date Time Status Abdomen Pelvis w Cont [CT] Stat Exams 01/11/18 19:14 Taken Abdomen Series w Chest 1V [CR] Urgent Exams 01/11/18 18:37 Taken UA W/MICROSCOPIC [URIN] Urgent Lab 01/11/18 18:53 Ordered Iopamidol [Isovue-300 (61%)] Med 01/11/18 19:45 Active 132 ml IV . DIRECTED Sodium Chloride 0.9% [Normal Saline] 1,000 ml Med 01/11/18 18:15 Active IV ASDIRECTED Sodium Chloride 0.9% [Normal Saline] 1,000 ml Med 01/11/18 19:15 Active IV ASDIRECTED Sodium Chloride 0.9% [Normal Saline] 1,000 ml Med 01/11/18 20:45 Active IV ASDIRECTED Sodium Chloride 0.9% [Normal Saline] 80 ml Med 01/11/18 19:45 Active IV ASDIRECTED Sodium Chloride 0.9% [Saline Flush] Med 01/11/18 19:38 Active 10 ml FLUSH ASDIRECTED PRN Medication Orders Sodium Chloride (Normal Saline) 1,000 mls @ 999 mls/hr IV ASDIRECTED NATY Last Admin: 01/11/18 18:34 Dose: 999 mls/hr Sodium Chloride (Normal Saline) 1,000 mls @ 999 mls/hr IV ASDIRECTED NATY Last Admin: 01/11/18 19:58 Dose: 999 mls/hr Sodium Chloride (Normal Saline) 80 mls @ 3 mls/sec IV ASDIRECTED NATY Last Admin: 01/11/18 19:52 Dose: 3 mls/sec Sodium Chloride (Normal Saline) 1,000 mls @ 999 mls/hr IV ASDIRECTED NATY Last Admin: 01/11/18 21:13 Dose: 999 mls/hr Iopamidol (Isovue-300 (61%)) 132 ml IV . DIRECTED NATY Last Admin: 01/11/18 19:52 Dose: 132 ml Sodium Chloride (Saline Flush) 10 ml FLUSH ASDIRECTED PRN PRN Reason: Keep Vein Open Last Admin: 01/11/18 19:51 Dose: 10 ml Labs: Laboratory Tests 01/11/18 01/11/18 01/11/18 Range/Units 18:21 18:21 18:53 WBC 6.5 (4.5-11.0) K/uL RBC 4.45 (4.30-5.90) M/uL Hgb 13.2 (12.0-15.0) g/dL Hct 39.7 L (40.0-54.0) % MCV 89 (80-98) fL MCH 30 (27-31) pg MCHC 33 (32-36) % Plt Count 185 (150-400) K/uL Neut % (Auto) 54 (36-66) % Lymph % (Auto) 36 (24-44) % [place] % (Auto) 8 H (2-6) % Eos % (Auto) 1 L (2-4) % Baso % (Auto) 0 (0-1) % Sodium 142 (140-148) mmol/L Potassium 4.0 (3.6-5.2) mmol/L Chloride 108 (100-108) mmol/L Carbon Dioxide 24 (21-32) mmol/L Anion Gap 10.0 (5.0-14.0) mmol/L BUN 9 (7-18) mg/dL Creatinine 1.0 (0.8-1.3) mg/dL Est Cr Clr Drug Dosing 99.88 mL/min Estimated GFR (MDRD) > 60 (>60) Glucose 106 (74-106) mg/dL Calcium 7.9 L (8.5-10.1) mg/dL Total Bilirubin 0.6 (0.2-1.0) mg/dL AST 34 (15-37) U/L ALT 49 (12-78) U/L Alkaline Phosphatase 57 (46-116) U/L Total Protein 5.9 L (6.4-8.2) g/dL Albumin 3.4 (3.4-5.0) g/dL Globulin 2.5 (2.3-3.5) g/dL Albumin/Globulin Ratio 1.4 (1.2-2.2) Amylase 62 D (25-115) U/L Lipase 645 H (73-393) U/L Urine Color Yellow Urine Appearance Clear Urine pH 6.0 (4.5-8.0) Ur Specific [place] 1.020 (1.008-1.030) Urine Protein Negative (NEGATIVE) mg/dL Urine Glucose (UA) Normal (NEGATIVE) mg/dL Urine Ketones Negative (NEGATIVE) mg/dL Urine Occult Blood Negative (NEGATIVE) Urine Nitrite Negative (NEGAITVE) Urine Bilirubin Negative (NEGATIVE) Urine Urobilinogen 4 (NORMAL) mg/dL Ur Leukocyte Esterase Negative (NEGATIVE) Urine RBC 0-5 (0-5) Urine WBC 0-5 (0-5) Ur Epithelial Cells Rare Urine Bacteria Rare Urine Mucus Not seen Meds: Medications Generic Name Dose Route Start Last Admin Trade Name Freq PRN Reason Stop Dose Admin Sodium Chloride 1,000 mls @ 999 mls/hr 01/11/18 18:15 01/11/18 18:34 Normal Saline IV 999 mls/hr ASDIRECTED NATY Administration Sodium Chloride 1,000 mls @ 999 mls/hr 01/11/18 19:15 01/11/18 19:58 Normal Saline IV 999 mls/hr ASDIRECTED NATY Administration Sodium Chloride 80 mls @ 3 mls/sec 01/11/18 19:45 01/11/18 19:52 Normal Saline IV 3 mls/sec ASDIRECTED NATY Administration Sodium Chloride 1,000 mls @ 999 mls/hr 01/11/18 20:45 01/11/18 21:13 Normal Saline IV 999 mls/hr ASDIRECTED NATY Administration Iopamidol 132 ml 01/11/18 19:45 01/11/18 19:52 Isovue-300 (61%) IV 132 ml . DIRECTED NATY Administration Sodium Chloride 10 ml 01/11/18 19:38 01/11/18 19:51 Saline Flush FLUSH 10 ml ASDIRECTED PRN Administration Keep Vein Open Discontinued Medications Generic Name Dose Route Start Last Admin Trade Name Alberto PRN Reason Stop Dose Admin Hydromorphone HCl 0.5 mg 01/11/18 18:10 01/11/18 18:36 Dilaudid IVPUSH 01/11/18 18:11 0.5 mg ONETIME ONE Administration Hydromorphone HCl 0.5 mg 01/11/18 21:49 Dilaudid IVPUSH 01/11/18 21:50 ONETIME ONE - Re-Assessments/Exams Free Text/Narrative Re-Assessment/Exam: 01/11/18 19:32 PT HAS A MILD ELEVATION IN HIS LIPASE. hIS LIVER ENZYMES ARE NORMAL. Departure - Departure Time of Disposition: 22:01 Disposition: Home, Self-Care 01 Condition: Fair Clinical Impression: Pancreatitis, acute, Abdominal pain - Discharge Information Referrals: PCP,None [Primary Care Provider] - Forms: ED Department Discharge Care Plan Goals: clear liquid diet for the next 24 hours, rtc if pain should become severe, rtc tomorrow pm for a repeat cmp and lipase and amylase and a recheckl. percocet for severe abdomanal pain. Pt was offered transfer to another facility but choose not to accept. percocet 5/325 q6h prn for pain # 8 - My Orders Last 24 Hours: My Active Orders 01/11/18 18:15 Sodium Chloride 0.9% [Normal Saline] 1,000 ml IV ASDIRECTED 01/11/18 18:37 Abdomen Series w Chest 1V [CR] Urgent 01/11/18 18:53 UA W/MICROSCOPIC [URIN] Urgent 01/11/18 19:14 Abdomen Pelvis w Cont [CT] Stat 01/11/18 19:15 Sodium Chloride 0.9% [Normal Saline] 1,000 ml IV ASDIRECTED 01/11/18 19:38 Sodium Chloride 0.9% [Saline Flush] 10 ml FLUSH ASDIRECTED PRN 01/11/18 19:45 Iopamidol [Isovue-300 (61%)] 132 ml IV . DIRECTED Sodium Chloride 0.9% [Normal Saline] 80 ml IV ASDIRECTED 01/11/18 20:45 Sodium Chloride 0.9% [Normal Saline] 1,000 ml IV ASDIRECTED - Assessment/Plan Last 24 Hours: My Active Orders 01/11/18 18:15 Sodium Chloride 0.9% [Normal Saline] 1,000 ml IV ASDIRECTED 01/11/18 18:37 Abdomen Series w Chest 1V [CR] Urgent 01/11/18 18:53 UA W/MICROSCOPIC [URIN] Urgent 01/11/18 19:14 Abdomen Pelvis w Cont [CT] Stat 01/11/18 19:15 Sodium Chloride 0.9% [Normal Saline] 1,000 ml IV ASDIRECTED 01/11/18 19:38 Sodium Chloride 0.9% [Saline Flush] 10 ml FLUSH ASDIRECTED PRN 01/11/18 19:45 Iopamidol [Isovue-300 (61%)] 132 ml IV . DIRECTED Sodium Chloride 0.9% [Normal Saline] 80 ml IV ASDIRECTED 01/11/18 20:45 Sodium Chloride 0.9% [Normal Saline] 1,000 ml IV ASDIRECTED
[2018-01-11] MEDS ORDERED: Sodium Chloride 0.9% 10 ML Syringe FLUSH PRN (19:38)
[2018-01-11] MEDS ORDERED: Iopamidol 612 MG/ML 150 ML Bottle IV SCH (19:45)
[2018-01-11] MEDS ORDERED: Sodium Chloride 0.9% 80 ML IV SCH (19:45)
[2018-01-11 21:56] VITALS: BP 98/57
--- NOTE | 2018-01-12 09:52 | CR ---
Heart size within normal limits. Pulmonary vasculature within normal limits. Large amount of fecal re sidual. Scattered air within the large and small bowel. Nonobstructive bowel gas pattern.
== END 2018-01-11 22:41 | disposition home or self-care (01) ==
LOC: JP.ED 18:03
DX: K85.90 Acute pancreatitis without necrosis or infection, unspecified (principal); I10 Essential (primary) hypertension; E11.9 Type 2 diabetes mellitus without complications; F17.210 Nicotine dependence, cigarettes, uncomplicated; Z88.5 Allergy status to narcotic agent; Z88.8 Allergy status to other drugs, medicaments and biological substances; Z79.899 Other long term (current) drug therapy
CPT/HCPCS: 36415; 74022; 74177; 80053; 81001; 82150; 83690; 85025; 96361; 96374; 96376; 99285; J1170; J7030; J7040; J7050

== ENCOUNTER 2018-01-12 20:24 | Emergency (ER) | payer OTHER, MEDICARE ==
[2018-01-12 20:37] VITALS: BP 108/64
--- NOTE | 2018-01-12 21:31 | EDM.PDOC ---
ED HPI GENERAL MEDICAL PROBLEM - General Chief Complaint: Gastrointestinal Problem Stated Complaint: PANCREATITIS Time Seen by Provider: 01/12/18 20:40 Source of Information: Reports: Patient History Limitations: Reports: No Limitations - History of Present Illness INITIAL COMMENTS - FREE TEXT/NARRATIVE: pt arrived for a recheck and he is feeling much better. He has not had any pain this pm. He has eaten lite during the day with no vomiting. Onset: Gradual Duration: Hour(s): Location: Reports: Abdomen Associated Symptoms: Reports: Nausea/Vomiting - Related Data Allergies Allergy/AdvReac Type Severity Reaction Status Date / Time codeine Allergy Rash Verified 01/11/18 18:13 lithium Allergy Other Verified 01/11/18 18:13 naproxen AdvReac Nausea Verified 01/11/18 18:13 simvastatin AdvReac Muscle Verified 01/11/18 18:13 Aches Home Meds: Home Meds Ziprasidone HCl [Geodon] 40 mg PO DAILY 01/15/14 [History] Ziprasidone HCl [Geodon] 80 mg PO BEDTIME 08/06/14 [History] Suvorexant [Belsomra] 20 mg PO BEDTIME 12/08/15 [History] ALPRAZolam 2 mg PO 5XDAY 07/12/16 [History] tiZANidine [Zanaflex] 4 mg PO Q6H PRN 07/12/16 [History] Acetaminophen [Tylenol Extra Strength] 500 mg PO Q4HR 02/27/17 [History] Docusate Sodium [Colace] 100 mg PO Q48H 10/25/17 [History] Cannabis 01/11/18 [History] Past Medical History HEENT History: Reports: Hard of Hearing, Impaired Vision, Otitis Media Cardiovascular History: Reports: Afib, High Cholesterol, Hypertension Respiratory History: Reports: Asthma, Bronchitis, Recurrent, Pneumonia, Recurrent Gastrointestinal History: Reports: Bowel Obstruction, Chronic Constipation, Chronic Diarrhea, Hepatitis, Hiatal Hernia Other Gastrointestinal History: Hepatitis A Genitourinary History: Reports: Renal Calculus Musculoskeletal History: Reports: Arthritis, Back Pain, Chronic, Fracture Other Musculoskeletal History: chronic leg pains, bone spurs left shoulder Neurological History: Reports: Concussion, Head Trauma, Migraines, Seizure Other Neuro History: 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 Psychiatric History: Reports: Addiction, Anxiety, Bipolar, Depression, Panic Attack, Psych Hospitalization(s), Schizophrenia, Suicide Attempt, Suicidal Ideation Endocrine/Metabolic History: Reports: Diabetes, Type II, Vitamin D Deficiency, Other (See Below) Other Endocrine/Metabolic History: not Diabetic since bariatric procedure Hematologic History: Reports: B12 Deficiency, Folic Acid Dermatologic History: Reports: Other (See Below) Other Dermatologic History: teeny adverse acollor - Infectious Disease History Infectious Disease History: Reports: Chicken Pox - Past Surgical History HEENT Surgical History: Reports: Eye Surgery, Oral Surgery GI Surgical History: Reports: Bariatric Procedure Musculoskeletal Surgical History: Reports: Shoulder Surgery, Other (See Below) Other Musculoskeletal Surgeries/Procedures:: hip surgery. left ankle surgery. left shoulder bone spurs Social & Family History - Family History Family Medical History: Noncontributory - Tobacco Use Smoking Status *Q: Current Status Unknown Years of Tobacco use: 37 Packs/Tins Daily: 1 Used Tobacco, but Quit: No Second Hand Smoke Exposure: Yes - Caffeine Use Caffeine Use: Reports: Coffee - Alcohol Use Days Per Week of Alcohol Use: 0 - Recreational Drug Use Recreational Drug Use: No Drug Use in Last 12 Months: Yes Recreational Drug Type: Reports: Methamphetamine Other Recreational Drug Type: medical Recreational Drug Use Frequency: Daily Recreational Drug Last Use: t-1 ED ROS GENERAL - Review of Systems Review Of Systems: See Below Constitutional: Reports: No Symptoms HEENT: Reports: No Symptoms Respiratory: Reports: No Symptoms Cardiovascular: Reports: No Symptoms Endocrine: Reports: No Symptoms GI/Abdominal: Reports: Abdominal Pain, Other (pt had an elevated lipase. ) : Reports: No Symptoms Musculoskeletal: Reports: No Symptoms Skin: Reports: No Symptoms ED EXAM, GI/ABD - Physical Exam Exam: See Below Text/Narrative:: pt arrived with upper abdomanal pain. He was nauseated. He states when the pain first started it was very severe. Exam Limited By: No Limitations General Appearance: Alert, No Apparent Distress Ears: Normal TMs Nose: Normal Inspection Throat/Mouth: Normal Inspection Head: Atraumatic Neck: Normal Inspection Respiratory/Chest: No Respiratory Distress Cardiovascular: Regular Rate, Rhythm GI/Abdominal Exam: Soft, Non-Tender (Male) Exam: Deferred Rectal (Males) Exam: Deferred Back Exam: Normal Inspection Extremities: Normal Inspection Neurological: Alert, Oriented, Normal Cognition Psychiatric: Normal Affect Course - Vital Signs Last Recorded V/S: Last Vital Signs Temp 35.7 C 01/12/18 21:09 Pulse 59 L 01/12/18 21:09 Resp 16 01/12/18 21:09 BP 108/64 01/12/18 21:09 Pulse Ox 99 01/12/18 21:09 - Orders/Labs/Meds Labs: Laboratory Tests 01/12/18 01/12/18 01/12/18 Range/Units 20:31 20:31 20:31 WBC 5.8 (4.5-11.0) K/uL RBC 4.40 (4.30-5.90) M/uL Hgb 13.3 (12.0-15.0) g/dL Hct 40.4 (40.0-54.0) % MCV 92 (80-98) fL MCH 30 (27-31) pg MCHC 33 (32-36) % Plt Count 175 (150-400) K/uL Neut % (Auto) 48 (36-66) % Lymph % (Auto) 42 (24-44) % [place] % (Auto) 8 H (2-6) % Eos % (Auto) 2 (2-4) % Baso % (Auto) 0 (0-1) % Sodium 142 (140-148) mmol/L Potassium 4.0 (3.6-5.2) mmol/L Chloride 107 (100-108) mmol/L Carbon Dioxide 29 (21-32) mmol/L Anion Gap 6.5 (5.0-14.0) mmol/L BUN 6 L (7-18) mg/dL Creatinine 0.9 (0.8-1.3) mg/dL Est Cr Clr Drug Dosing 110.97 mL/min Estimated GFR (MDRD) > 60 (>60) Glucose 77 (74-106) mg/dL Calcium 8.1 L (8.5-10.1) mg/dL Total Bilirubin 0.4 (0.2-1.0) mg/dL AST 26 (15-37) U/L ALT 42 (12-78) U/L Alkaline Phosphatase 55 (46-116) U/L Total Protein 6.0 L (6.4-8.2) g/dL Albumin 3.4 (3.4-5.0) g/dL Globulin 2.6 (2.3-3.5) g/dL Albumin/Globulin Ratio 1.3 (1.2-2.2) Amylase (25-115) U/L Lipase 189 (73-393) U/L 01/12/18 Range/Units 20:31 WBC (4.5-11.0) K/uL RBC (4.30-5.90) M/uL Hgb (12.0-15.0) g/dL Hct (40.0-54.0) % MCV (80-98) fL MCH (27-31) pg MCHC (32-36) % Plt Count (150-400) K/uL Neut % (Auto) (36-66) % Lymph % (Auto) (24-44) % [place] % (Auto) (2-6) % Eos % (Auto) (2-4) % Baso % (Auto) (0-1) % Sodium (140-148) mmol/L Potassium (3.6-5.2) mmol/L Chloride (100-108) mmol/L Carbon Dioxide (21-32) mmol/L Anion Gap (5.0-14.0) mmol/L BUN (7-18) mg/dL Creatinine (0.8-1.3) mg/dL Est Cr Clr Drug Dosing mL/min Estimated GFR (MDRD) (>60) Glucose (74-106) mg/dL Calcium (8.5-10.1) mg/dL Total Bilirubin (0.2-1.0) mg/dL AST (15-37) U/L ALT (12-78) U/L Alkaline Phosphatase (46-116) U/L Total Protein (6.4-8.2) g/dL Albumin (3.4-5.0) g/dL Globulin (2.3-3.5) g/dL Albumin/Globulin Ratio (1.2-2.2) Amylase 38 (25-115) U/L Lipase (73-393) U/L - Re-Assessments/Exams Free Text/Narrative Re-Assessment/Exam: 01/12/18 21:39 lab work was all normal. His lipase is normal. Departure - Departure Time of Disposition: 21:30 Disposition: Home, Self-Care 01 Condition: Fair Clinical Impression: Pancreatitis - Discharge Information Referrals: Pieter Kim MD [Primary Care Provider] - Forms: ED Department Discharge Care Plan Goals: rtc for a abdomanal limited Us, a follow up appt with Dr Kim, slowly advance diet, push fluds.
== END 2018-01-12 21:50 | disposition home or self-care (01) ==
LOC: JP.ED 20:24
DX: K85.90 Acute pancreatitis without necrosis or infection, unspecified (principal); E78.00 Pure hypercholesterolemia, unspecified; I10 Essential (primary) hypertension; E11.9 Type 2 diabetes mellitus without complications; Z88.5 Allergy status to narcotic agent; Z88.6 Allergy status to analgesic agent; Z88.8 Allergy status to other drugs, medicaments and biological substances; Z79.899 Other long term (current) drug therapy; Z98.84 Bariatric surgery status
CPT/HCPCS: 36415; 80053; 82150; 83690; 85025; 99283; 99284

== ENCOUNTER 2018-07-11 00:43 | Emergency (ER) | payer OTHER, MEDICARE ==
[2018-07-11] MEDS ORDERED: Ondansetron 4 MG/2 ML SDV IVPUSH ONE (01:20)
[2018-07-11] MEDS ORDERED: HYDROmorphone 0.5 MG/0.5 ML Syringe IVPUSH ONE (01:21)
--- NOTE | 2018-07-11 01:25 | EDM.PDOC ---
ED HPI GENERAL MEDICAL PROBLEM - General Chief Complaint: Abdominal Pain Stated Complaint: ABD PAIN/VALENTE PT Time Seen by Provider: 07/11/18 01:21 Source of Information: Reports: Patient History Limitations: Reports: No Limitations - History of Present Illness INITIAL COMMENTS - FREE TEXT/NARRATIVE: pt was at work at [employer] today and he suddenly developed marked upper abdomanal pain. He is post RNY. He has had pancreatitis in the past. He is rating his pain at a 8 or 9 Onset: Today, Sudden Duration: Hour(s): Location: Reports: Abdomen Quality: Reports: Sharp, Stabbing Associated Symptoms: Reports: Nausea/Vomiting abdominal pain Pain Score (Numeric/FACES): 8 - Related Data Allergies Allergy/AdvReac Type Severity Reaction Status Date / Time codeine Allergy Rash Verified 01/11/18 18:13 lithium Allergy Other Verified 01/11/18 18:13 naproxen AdvReac Nausea Verified 01/11/18 18:13 simvastatin AdvReac Muscle Verified 01/11/18 18:13 Aches Home Meds: Home Meds Ziprasidone HCl [Geodon] 40 mg PO DAILY 01/15/14 [History] Ziprasidone HCl [Geodon] 80 mg PO BEDTIME 08/06/14 [History] ALPRAZolam 2 mg PO 5XDAY 07/12/16 [History] tiZANidine [Zanaflex] 4 mg PO Q6H PRN 07/12/16 [History] Acetaminophen [Tylenol Extra Strength] 500 mg PO Q4HR 02/27/17 [History] Docusate Sodium [Colace] 100 mg PO Q48H 10/25/17 [History] Cannabis 1 vaporole INH QID PRN 01/11/18 [History] Past Medical History HEENT History: Reports: Hard of Hearing, Impaired Vision, Otitis Media Cardiovascular History: Reports: Afib, High Cholesterol, Hypertension Respiratory History: Reports: Asthma, Bronchitis, Recurrent, Pneumonia, Recurrent Gastrointestinal History: Reports: Bowel Obstruction, Chronic Constipation, Chronic Diarrhea, Hepatitis, Hiatal Hernia Other Gastrointestinal History: Hepatitis A Genitourinary History: Reports: Renal Calculus Musculoskeletal History: Reports: Arthritis, Back Pain, Chronic, Fracture Other Musculoskeletal History: chronic leg pains, bone spurs left shoulder Neurological History: Reports: Concussion, Head Trauma, Migraines, Seizure Other Neuro History: 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 Psychiatric History: Reports: Addiction, Anxiety, Bipolar, Depression, Panic Attack, Psych Hospitalization(s), Schizophrenia, Suicide Attempt, Suicidal Ideation Endocrine/Metabolic History: Reports: Diabetes, Type II, Vitamin D Deficiency, Other (See Below) Other Endocrine/Metabolic History: not Diabetic since bariatric procedure Hematologic History: Reports: B12 Deficiency, Folic Acid Dermatologic History: Reports: Other (See Below) Other Dermatologic History: teeny adverse acollor - Infectious Disease History Infectious Disease History: Reports: Chicken Pox, Hepatitis A - Past Surgical History HEENT Surgical History: Reports: Eye Surgery, Oral Surgery GI Surgical History: Reports: Bariatric Procedure, Other (See Below) Other GI Surgeries/Procedures: hiatal hernia repair Musculoskeletal Surgical History: Reports: Shoulder Surgery, Other (See Below) Other Musculoskeletal Surgeries/Procedures:: hip surgery. left ankle surgery. left shoulder bone spurs Social & Family History - Family History Family Medical History: Noncontributory - Tobacco Use Smoking Status *Q: Current Every Day Smoker Years of Tobacco use: 40 Packs/Tins Daily: 1 Used Tobacco, but Quit: No - Caffeine Use Caffeine Use: Reports: Coffee, Energy Drinks, Soda, Tea - Recreational Drug Use Recreational Drug Use: Yes Drug Use in Last 12 Months: Yes Recreational Drug Type: Reports: Marijuana/Hashish Recreational Drug Use Frequency: Daily ED ROS GENERAL - Review of Systems Review Of Systems: See Below Constitutional: Reports: No Symptoms HEENT: Reports: No Symptoms Respiratory: Reports: No Symptoms Cardiovascular: Reports: No Symptoms Endocrine: Reports: No Symptoms GI/Abdominal: Reports: Abdominal Pain, Nausea : Reports: No Symptoms Musculoskeletal: Reports: No Symptoms Skin: Reports: No Symptoms ED EXAM, GI/ABD - Physical Exam Exam: See Below Text/Narrative:: Pt arrived with pain in the epigastric area radiating to his back. He was nausested but he did not vomit. He states this pain came on suddenly. Exam Limited By: No Limitations General Appearance: Alert, Moderate Distress Ears: Normal TMs Nose: Normal Inspection Throat/Mouth: Normal Inspection Head: Atraumatic Neck: Normal Inspection Respiratory/Chest: No Respiratory Distress Cardiovascular: Regular Rate, Rhythm GI/Abdominal Exam: Tender, Other (Pt is tender in the epigastric area. ) (Male) Exam: Deferred Rectal (Males) Exam: Deferred Back Exam: Normal Inspection Extremities: Normal Inspection Neurological: Alert, Oriented, Normal Cognition Course - Vital Signs Last Recorded V/S: Last Vital Signs Temp 35.4 C 07/11/18 00:55 Pulse 52 L 07/11/18 03:38 Resp 18 07/11/18 03:38 BP 90/46 L 07/11/18 03:38 Pulse Ox 98 07/11/18 03:38 - Orders/Labs/Meds Orders: Active Orders 24 hr Category Date Time Status Abdomen Pelvis w Cont [CT] Stat Exams 07/11/18 02:15 Taken Sodium Chloride 0.9% [Normal Saline] 1,000 ml Med 07/11/18 01:30 Active IV ASDIRECTED Sodium Chloride 0.9% [Normal Saline] 1,000 ml Med 07/11/18 02:15 Active IV ASDIRECTED Medication Orders Sodium Chloride (Normal Saline) 1,000 mls @ 999 mls/hr IV ASDIRECTED NATY Last Admin: 07/11/18 01:37 Dose: 999 mls/hr Sodium Chloride (Normal Saline) 1,000 mls @ 999 mls/hr IV ASDIRECTED NATY Last Admin: 07/11/18 02:31 Dose: 999 mls/hr Labs: Laboratory Tests 07/11/18 07/11/18 07/11/18 Range/Units 01:18 01:35 01:35 WBC 8.3 (4.5-11.0) K/uL RBC 4.66 (4.30-5.90) M/uL Hgb 13.9 (12.0-15.0) g/dL Hct 40.9 (40.0-54.0) % MCV 88 (80-98) fL MCH 30 (27-31) pg MCHC 34 (32-36) % Plt Count 163 (150-400) K/uL Neut % (Auto) 68 H (36-66) % Lymph % (Auto) 23 L (24-44) % [place] % (Auto) 7 H (2-6) % Eos % (Auto) 2 (2-4) % Baso % (Auto) 0 (0-1) % Sodium 141 (140-148) mmol/L Potassium 4.1 (3.6-5.2) mmol/L Chloride 104 (100-108) mmol/L Carbon Dioxide 27 (21-32) mmol/L Anion Gap 9.8 (5.0-14.0) mmol/L BUN 11 D (7-18) mg/dL Creatinine 1.0 (0.8-1.3) mg/dL Est Cr Clr Drug Dosing 98.77 mL/min Estimated GFR (MDRD) > 60 (>60) Glucose 103 (74-106) mg/dL Lactic Acid (0.4-2.0) mmol/L Calcium 8.6 (8.5-10.1) mg/dL Total Bilirubin 0.4 (0.2-1.0) mg/dL AST 32 (15-37) U/L ALT 37 (12-78) U/L Alkaline Phosphatase 74 (46-116) U/L C-Reactive Protein (0.0-0.3) mg/dL Total Protein 6.8 (6.4-8.2) g/dL Albumin 3.7 (3.4-5.0) g/dL Globulin 3.1 (2.3-3.5) g/dL Albumin/Globulin Ratio 1.2 (1.2-2.2) Amylase (25-115) U/L Lipase (73-393) U/L Urine Color Yellow Urine Appearance Clear Urine pH 7.0 (4.5-8.0) Ur Specific [place] 1.015 (1.008-1.030) Urine Protein Negative (NEGATIVE) mg/dL Urine Glucose (UA) Normal (NEGATIVE) mg/dL Urine Ketones 15 H (NEGATIVE) mg/dL Urine Occult Blood Negative (NEGATIVE) Urine Nitrite Negative (NEGAITVE) Urine Bilirubin Negative (NEGATIVE) Urine Urobilinogen 4 (NORMAL) mg/dL Ur Leukocyte Esterase Negative (NEGATIVE) Urine RBC 0-5 (0-5) Urine WBC 0-5 (0-5) Ur Epithelial Cells Few Amorphous Sediment Not seen Urine Bacteria Rare Urine Mucus Not seen 07/11/18 07/11/18 Range/Units 01:35 03:20 WBC (4.5-11.0) K/uL RBC (4.30-5.90) M/uL Hgb (12.0-15.0) g/dL Hct (40.0-54.0) % MCV (80-98) fL MCH (27-31) pg MCHC (32-36) % Plt Count (150-400) K/uL Neut % (Auto) (36-66) % Lymph % (Auto) (24-44) % [place] % (Auto) (2-6) % Eos % (Auto) (2-4) % Baso % (Auto) (0-1) % Sodium (140-148) mmol/L Potassium (3.6-5.2) mmol/L Chloride (100-108) mmol/L Carbon Dioxide (21-32) mmol/L Anion Gap (5.0-14.0) mmol/L BUN (7-18) mg/dL Creatinine (0.8-1.3) mg/dL Est Cr Clr Drug Dosing mL/min Estimated GFR (MDRD) (>60) Glucose (74-106) mg/dL Lactic Acid 0.5 (0.4-2.0) mmol/L Calcium (8.5-10.1) mg/dL Total Bilirubin (0.2-1.0) mg/dL AST (15-37) U/L ALT (12-78) U/L Alkaline Phosphatase (46-116) U/L C-Reactive Protein 0.22 (0.0-0.3) mg/dL Total Protein (6.4-8.2) g/dL Albumin (3.4-5.0) g/dL Globulin (2.3-3.5) g/dL Albumin/Globulin Ratio (1.2-2.2) Amylase 42 (25-115) U/L Lipase 142 (73-393) U/L Urine Color Urine Appearance Urine pH (4.5-8.0) Ur Specific [place] (1.008-1.030) Urine Protein (NEGATIVE) mg/dL Urine Glucose (UA) (NEGATIVE) mg/dL Urine Ketones (NEGATIVE) mg/dL Urine Occult Blood (NEGATIVE) Urine Nitrite (NEGAITVE) Urine Bilirubin (NEGATIVE) Urine Urobilinogen (NORMAL) mg/dL Ur Leukocyte Esterase (NEGATIVE) Urine RBC (0-5) Urine WBC (0-5) Ur Epithelial Cells Amorphous Sediment Urine Bacteria Urine Mucus Meds: Medications Generic Name Dose Route Start Last Admin Trade Name Freq PRN Reason Stop Dose Admin Sodium Chloride 1,000 mls @ 999 mls/hr 07/11/18 01:30 07/11/18 01:37 Normal Saline IV 999 mls/hr ASDIRECTED NATY Administration Sodium Chloride 1,000 mls @ 999 mls/hr 07/11/18 02:15 07/11/18 02:31 Normal Saline IV 999 mls/hr ASDIRECTED NATY Administration Discontinued Medications Generic Name Dose Route Start Last Admin Trade Name Alberto PRN Reason Stop Dose Admin Hydromorphone HCl 0.5 mg 07/11/18 01:21 07/11/18 01:42 Dilaudid IVPUSH 07/11/18 01:22 0.5 mg ONETIME ONE Administration Sodium Chloride 80 mls @ 3.5 mls/sec 07/11/18 02:28 07/11/18 03:00 Normal Saline IV 07/11/18 02:29 3 mls/sec ONETIME ONE Administration Iopamidol 150 ml 07/11/18 02:30 07/11/18 03:01 Isovue-300 (61%) IV 141 ml . DIRECTED NATY Administration Ondansetron HCl 4 mg 07/11/18 01:20 07/11/18 01:41 Zofran IVPUSH 07/11/18 01:21 4 mg ONETIME ONE Administration Sodium Chloride 10 ml 07/11/18 02:28 07/11/18 03:00 Saline Flush FLUSH 07/11/18 02:29 10 ml ONETIME ONE Administration - Re-Assessments/Exams Free Text/Narrative Re-Assessment/Exam: 07/11/18 03:43 pt had a cat scan which revealed a possible volvulus that has resolved. Radiology wished for me to get a lactic acid on the pt There was no evidence of small bowel obstruction at this time. The pt is quite comfortable. 07/11/18 03:47 pt had normal lab and is now comfortable. Departure - Departure Time of Disposition: 03:45 Disposition: Home, Self-Care 01 Condition: Fair Clinical Impression: Volvulus - Discharge Information Referrals: Pieter Kim MD [Primary Care Provider] - Forms: ED Department Discharge Care Plan Goals: return if pain should reoccur Schedule a appt with Dr Magallanes regarding the recurrent pain - My Orders Last 24 Hours: My Active Orders 07/11/18 01:30 Sodium Chloride 0.9% [Normal Saline] 1,000 ml IV ASDIRECTED 07/11/18 02:15 Abdomen Pelvis w Cont [CT] Stat Sodium Chloride 0.9% [Normal Saline] 1,000 ml IV ASDIRECTED - Assessment/Plan Last 24 Hours: My Active Orders 07/11/18 01:30 Sodium Chloride 0.9% [Normal Saline] 1,000 ml IV ASDIRECTED 07/11/18 02:15 Abdomen Pelvis w Cont [CT] Stat Sodium Chloride 0.9% [Normal Saline] 1,000 ml IV ASDIRECTED
[2018-07-11] MEDS ORDERED: Sodium Chloride 0.9% 1,000 ML IV SCH ×2 (01:30→02:15)
[2018-07-11] MEDS ORDERED: Sodium Chloride 0.9% 10 ML Syringe FLUSH ONE (02:28)
[2018-07-11] MEDS ORDERED: Sodium Chloride 0.9% 80 ML IV ONE (02:28)
[2018-07-11] MEDS ORDERED: Iopamidol 612 MG/ML 150 ML Bottle IV SCH (02:30)
[2018-07-11 03:39] VITALS: BP 90/46
== END 2018-07-11 04:04 | disposition home or self-care (01) ==
LOC: JP.ED 00:43
DX: K56.2 Volvulus (principal); F17.210 Nicotine dependence, cigarettes, uncomplicated; I10 Essential (primary) hypertension; E11.9 Type 2 diabetes mellitus without complications; I48.91 Unspecified atrial fibrillation; E78.00 Pure hypercholesterolemia, unspecified; F31.9 Bipolar disorder, unspecified; F41.9 Anxiety disorder, unspecified; Z79.899 Other long term (current) drug therapy; Z88.5 Allergy status to narcotic agent; Z88.8 Allergy status to other drugs, medicaments and biological substances
CPT/HCPCS: 36415; 74177; 80053; 81001; 82150; 83605; 83690; 85025; 86140; 96361; 96374; 96375; 99284; J1170; J2405; J7030; J7050

== ENCOUNTER 2018-12-13 21:19 | Emergency (ER) | payer MEDICAID ==
[2018-12-13] MEDS ORDERED: Sodium Chloride 0.9% 1,000 ML IV SCH (21:45)
--- NOTE | 2018-12-13 22:08 | CRLCR ---
Indication: Abdomen pain Technique: Abdomen 3 view, 5 films. Comparison: Acute abdominal series 01/11/2018 Findings: Lungs are clear. Heart and mediastinum are unremarkable. Small-bowel loops are upper normal with air seen to the level of the rectosigmoid. Moderate amount of stool within the colon. Suture material within the left hemipelvis. Impression: Status post abdominal surgery with nonspecific bowel gas pattern and moderate amount of stool within the colon. Dictated by Wilfredo Noble MD @ Dec 13 2018 10:06PM Signed by Dr. Wilfredo Noble @ Dec 13 2018 10:08PM
--- NOTE | 2018-12-13 22:51 | EDM.PDOC ---
ED HPI GENERAL MEDICAL PROBLEM - General Chief Complaint: Abdominal Pain Stated Complaint: BD PAIN Time Seen by Provider: 12/13/18 22:48 Source of Information: Reports: Patient History Limitations: Reports: No Limitations - History of Present Illness INITIAL COMMENTS - FREE TEXT/NARRATIVE: pt arrived with pain in the left upper abdoman. This came on suddenly and it was very severe. He has been having normal bms. He did not vomit. He had surgery about 6 mo ago for a obstruction. Onset: Today, Sudden Duration: Hour(s): Location: Reports: Abdomen Associated Symptoms: Reports: Weakness, Other ( Pain in the left upper abdoman. ) Treatments [employer]: Reports: IV/IO Lef Upper Abdomen Pain Score (Numeric/FACES): 8 - Related Data Allergies Allergy/AdvReac Type Severity Reaction Status Date / Time codeine Allergy Rash Verified 12/13/18 22:02 lithium Allergy Seizure Verified 12/13/18 22:02 naproxen AdvReac Nausea Verified 12/13/18 22:02 simvastatin AdvReac Muscle Verified 12/13/18 22:02 Aches Home Meds: Home Meds Ziprasidone HCl [Geodon] 40 mg PO DAILY 01/15/14 [History] Ziprasidone HCl [Geodon] 80 mg PO BEDTIME 08/06/14 [History] tiZANidine [Zanaflex] 4 mg PO Q6H PRN 07/12/16 [History] Acetaminophen [Tylenol Extra Strength] 500 mg PO Q4HR 02/27/17 [History] Cannabis 1 vaporole INH QID PRN 01/11/18 [History] Ondansetron [Zofran ODT] 4 mg PO Q8HR PRN 07/26/18 [History] Vitamin A 20,000 units PO DAILY 07/26/18 [History] Zinc Gluconate [Zinc] 50 mg PO DAILY 07/26/18 [History] Docusate Sodium [Colace] 100 mg PO BID cap 07/29/18 [Rx] ALPRAZolam 2 mg PO QID PRN 12/13/18 [History] Suvorexant [Belsomra] 20 mg PO BEDTIME 12/13/18 [History] Past Medical History HEENT History: Reports: Hard of Hearing, Impaired Vision, Otitis Media Other HEENT History: wears glasses Cardiovascular History: Reports: Afib, High Cholesterol, Hypertension, SOB on Exertion, Syncope Respiratory History: Reports: Asthma, Bronchitis, Recurrent, Pneumonia, Recurrent Gastrointestinal History: Reports: Bowel Obstruction, Chronic Constipation, Chronic Diarrhea, GERD, Hepatitis, Hiatal Hernia Other Gastrointestinal History: Hepatitis A Genitourinary History: Reports: Renal Calculus, UTI, Recurrent Other Genitourinary History: kidney infections Musculoskeletal History: Reports: Arthritis, Back Pain, Chronic, Fracture Other Musculoskeletal History: chronic leg pains, bone spurs left shoulder Neurological History: Reports: Concussion, Head Trauma, Migraines, Seizure Other Neuro History: 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 Psychiatric History: Reports: Addiction, Anxiety, Bipolar, Depression, Panic Attack, Psych Hospitalization(s), Schizophrenia, Suicide Attempt, Suicidal Ideation Endocrine/Metabolic History: Reports: Diabetes, Type II, Vitamin D Deficiency, Other (See Below) Other Endocrine/Metabolic History: not Diabetic since bariatric procedure Hematologic History: Reports: B12 Deficiency, Folic Acid Dermatologic History: Reports: Other (See Below) Other Dermatologic History: teeny adverse acollor-pigmentation disorder - Infectious Disease History Infectious Disease History: Reports: Hepatitis A - Past Surgical History HEENT Surgical History: Reports: Eye Surgery, Oral Surgery Cardiovascular Surgical History: Reports: Other (See Below) Other Cardiovascular Surgeries/Procedures: cardioversions Respiratory Surgical History: Reports: None GI Surgical History: Reports: Bariatric Procedure, Other (See Below) Other GI Surgeries/Procedures: hiatal hernia repair Male Surgical History: Reports: None Endocrine Surgical History: Reports: None Neurological Surgical History: Reports: None Musculoskeletal Surgical History: Reports: Ganglion Cyst, Shoulder Surgery, Other (See Below) Other Musculoskeletal Surgeries/Procedures:: hip surgery. left ankle surgery. left shoulder bone spurs Dermatological Surgical History: Reports: None Social & Family History - Family History Family Medical History: Noncontributory Cardiac: Reports: Bypass, CAD, [place] Musculoskeletal: Reports: Arthritis, Back pain, Chronic, Neck Pain, Chronic Neurological: Reports: Alzheimers Disease Psychiatric: Reports: Anxiety, Bipolar, Depression Oncologic: Reports: Leukemia, Lymphoma - Tobacco Use Smoking Status *Q: Current Every Day Smoker Years of Tobacco use: 38 Packs/Tins Daily: 0.5 Second Hand Smoke Exposure: Yes - Caffeine Use Caffeine Use: Reports: Coffee - Recreational Drug Use Recreational Drug Use: Yes Recreational Drug Type: Reports: Marijuana/Hashish Recreational Drug Use Frequency: Daily ED ROS GENERAL - Review of Systems Review Of Systems: See Below Constitutional: Reports: No Symptoms HEENT: Reports: No Symptoms Respiratory: Reports: No Symptoms Cardiovascular: Reports: No Symptoms Endocrine: Reports: No Symptoms GI/Abdominal: Reports: Abdominal Pain, Other ( sudden onset of left upper abdomanal pain) : Reports: No Symptoms Musculoskeletal: Reports: No Symptoms Skin: Reports: No Symptoms Neurological: Reports: No Symptoms ED EXAM, GI/ABD - Physical Exam Exam: See Below Text/Narrative:: Pt arrived with pain in the left upper quadrant. He stated this came on suddenly and was very severe at first. By the time he got here the pain was much better. He still was quite tender to palpate. Exam Limited By: No Limitations General Appearance: Alert, Anxious, Moderate Distress Ears: Normal TMs Nose: Normal Inspection Throat/Mouth: Normal Inspection Head: Atraumatic Neck: Normal Inspection Respiratory/Chest: No Respiratory Distress Cardiovascular: Regular Rate, Rhythm GI/Abdominal Exam: Tender, Other (pt is very tender in the left upper abdoman. He had a flat and upright of the abdoman show some distrended bowel in the left upper abdoman. ) (Male) Exam: Deferred Rectal (Males) Exam: Deferred Back Exam: Normal Inspection Extremities: Normal Inspection Neurological: Alert, Oriented, Normal Cognition Psychiatric: Normal Affect Course - Vital Signs Last Recorded V/S: Last Vital Signs Temp 36.3 C 12/13/18 23:24 Pulse 68 12/13/18 23:24 Resp 12 12/13/18 23:24 BP 112/72 12/13/18 23:24 Pulse Ox 97 12/13/18 23:24 - Orders/Labs/Meds Labs: Laboratory Tests 12/13/18 12/13/18 12/13/18 Range/Units 21:27 21:27 22:22 WBC 6.9 (4.5-11.0) K/uL RBC 4.42 (4.30-5.90) M/uL Hgb 13.1 (12.0-15.0) g/dL Hct 39.3 L (40.0-54.0) % MCV 89 (80-98) fL MCH 30 (27-31) pg MCHC 33 (32-36) % Plt Count 184 (150-400) K/uL Neut % (Auto) 55 (36-66) % Lymph % (Auto) 33 (24-44) % [place] % (Auto) 9 H (2-6) % Eos % (Auto) 2 (2-4) % Baso % (Auto) 0 (0-1) % Sodium 140 (140-148) mmol/L Potassium 3.9 (3.6-5.2) mmol/L Chloride 104 (100-108) mmol/L Carbon Dioxide 25 (21-32) mmol/L Anion Gap 11.0 (5.0-14.0) mmol/L BUN 11 (7-18) mg/dL Creatinine 0.8 (0.8-1.3) mg/dL Est Cr Clr Drug Dosing TNP Estimated GFR (MDRD) > 60 (>60) Glucose 96 (74-106) mg/dL Calcium 8.9 (8.5-10.1) mg/dL Total Bilirubin 0.5 (0.2-1.0) mg/dL AST 39 H (15-37) U/L ALT 48 (12-78) U/L Alkaline Phosphatase 60 (46-116) U/L Total Protein 6.6 (6.4-8.2) g/dL Albumin 3.4 (3.4-5.0) g/dL Globulin 3.2 (2.3-3.5) g/dL Albumin/Globulin Ratio 1.1 L (1.2-2.2) Urine Color Yellow Urine Appearance Clear Urine pH 8.0 (4.5-8.0) Ur Specific [place] 1.005 L (1.008-1.030) Urine Protein Negative (NEGATIVE) mg/dL Urine Glucose (UA) Normal (NEGATIVE) mg/dL Urine Ketones Negative (NEGATIVE) mg/dL Urine Occult Blood Negative (NEGATIVE) Urine Nitrite Negative (NEGAITVE) Urine Bilirubin Negative (NEGATIVE) Urine Urobilinogen Normal (NORMAL) mg/dL Ur Leukocyte Esterase Negative (NEGATIVE) Urine RBC Not seen (0-5) Urine WBC 0-5 (0-5) Ur Epithelial Cells Rare Amorphous Sediment Not seen Urine Bacteria Not seen Urine Mucus Not seen Meds: Medications Discontinued Medications Generic Name Dose Route Start Last Admin Trade Name Freq PRN Reason Stop Dose Admin Sodium Chloride 1,000 mls @ 999 mls/hr 12/13/18 21:45 12/13/18 22:19 Normal Saline IV 999 mls/hr ASDIRECTED NATY Administration Sodium Chloride 80 mls @ 3.3 mls/sec 12/13/18 22:54 12/13/18 23:04 Normal Saline IV 12/13/18 22:55 3.3 mls/sec ASDIRECTED STA Administration Iopamidol 144 ml 12/13/18 22:53 12/13/18 23:03 Isovue-300 (61%) IV 12/13/18 22:54 150 ml . DIRECTED STA Administration Magnesium Citrate 296 ml 12/13/18 23:41 12/13/18 23:47 Citrate Of Magnesia PO 12/13/18 23:42 296 ml ONETIME ONE Administration - Re-Assessments/Exams Free Text/Narrative Re-Assessment/Exam: 12/13/18 23:50 pt had normal lab work He ended up with a cat scan of the abdoman which was neg except for constipation. Departure - Departure Time of Disposition: 23:44 Disposition: Home, Self-Care 01 Condition: Fair Clinical Impression: Constipation, Gastric bypass status for obesity - Discharge Information Instructions: Constipation, Adult, [id number] Referrals: PCP,None [Primary Care Provider] - Forms: ED Department Discharge Care Plan Goals: push fluids, keep stools soft, rtc if increased problems.
[2018-12-13] MEDS ORDERED: Iopamidol 612 MG/ML 150 ML Bottle IV STA (22:53)
[2018-12-13] MEDS ORDERED: Sodium Chloride 0.9% 80 ML IV STA (22:54)
[2018-12-13 23:25] VITALS: BP 112/72
--- NOTE | 2018-12-13 23:34 | CRLCT ---
INDICATION: Right upper quadrant pain TECHNIQUE: CT abdomen and pelvis acquired with IV contrast. 144 cc Isovue-300 COMPARISON: 07/11/2018 FINDINGS: Lower chest: Unremarkable. Liver: Unremarkable. Spleen: Unremarkable. Pancreas: Unremarkable. Gallbladder and bile ducts: Unremarkable. Kidneys: Unremarkable. Adrenal glands: Unremarkable. GI tract: Evidence of prior gastric bypass surgery. Colonic fecal retention involving the cecum and ascending colon. Appendix is not visualized. Vascular structures: Unremarkable. Lymph nodes: Unremarkable. Miscellaneous: Unremarkable. No free air. Small amount of free fluid in the pelvis. Pelvic Organs: Unremarkable. Bones: Unremarkable for age. IMPRESSION: Normal appearing gallbladder and common bile duct. Colonic fecal retention involving the cecum and ascending colon. Dictated by Lopez Grullon MD @ 12/13/2018 11:33:41 PM Please note that all CT scans at this facility use dose modulation, iterative reconstruction, and/or weight-based dosing when appropriate to reduce radiation dose to as low as reasonably achievable. Dictated by: Lopez Grullon MD @ 12/13/2018 23:33:50 (Electronically Signed)
[2018-12-13] MEDS ORDERED: Magnesium Citrate Solution 296 ML Bottle PO ONE (23:41)
== END 2018-12-13 23:55 | disposition home or self-care (01) ==
LOC: JP.ED 21:19
DX: K59.00 Constipation, unspecified (principal); F31.9 Bipolar disorder, unspecified; F41.9 Anxiety disorder, unspecified; F17.210 Nicotine dependence, cigarettes, uncomplicated; I10 Essential (primary) hypertension; E78.00 Pure hypercholesterolemia, unspecified; E11.9 Type 2 diabetes mellitus without complications; Z98.890 Other specified postprocedural states; Z79.899 Other long term (current) drug therapy; Z88.5 Allergy status to narcotic agent; Z88.8 Allergy status to other drugs, medicaments and biological substances
CPT/HCPCS: 36415; 74022; 74177; 80053; 81001; 85025; 96360; 99284; A9270; J7030

== ENCOUNTER 2019-03-31 16:07 | Emergency (ER) | payer MEDICAID ==
[2019-03-31 16:31] VITALS: BP 132/76
--- NOTE | 2019-03-31 17:31 | CRLCR ---
INDICATION: Pinched toe under door TECHNIQUE: Toe radiograph 3 views right 1st COMPARISON: None FINDINGS: Bone: No acute fractures or aggressive bone lesions are identified. There are 2 sclerotic lesions within the 1st distal phalanx, measuring up to 4 mm and likely due to bone islands. Joint: There irregular punctate calcifications along the medial aspect of the 1st interphalangeal joint, likely due to capsular calcifications. Soft tissue: Unremarkable. No radiopaque foreign bodies are seen. IMPRESSION: 1. No acute osseous injuries or abnormalities are noted. Dictated by Jean Marie Rodríguez MD @ 03/31/2019 5:30:36 PM Dictated by: Jean Marie Rodríguez MD @ 03/31/2019 17:30:38 (Electronically Signed)
--- NOTE | 2019-03-31 17:53 | EDM.PDOC ---
ED HPI GENERAL MEDICAL PROBLEM - General Chief Complaint: Lower Extremity Injury/Pain Stated Complaint: SHUT DOOR ON FOOT Time Seen by Provider: 03/31/19 17:30 Source of Information: Reports: Patient History Limitations: Reports: No Limitations - History of Present Illness INITIAL COMMENTS - FREE TEXT/NARRATIVE: 53-year-old male was opening a door overnight and jammed his large toe of his right foot under the door. Today he went to work and had to limp around and was having significant discomfort so he came in to have it checked. There is no deformity or significant bruising, no abrasion. Onset: Sudden Duration: Hour(s): (Injury was just over 12 hours ago) Location: Reports: Lower Extremity, Right Quality: Reports: Burning, Throbbing Worsens with: Reports: Other (Walking and weightbearing is difficult), Movement Right Feet Pain Score (Numeric/FACES): 8 - Related Data Allergies Allergy/AdvReac Type Severity Reaction Status Date / Time codeine Allergy Rash Verified 12/13/18 22:02 lithium Allergy Seizure Verified 12/13/18 22:02 naproxen AdvReac Nausea Verified 12/13/18 22:02 simvastatin AdvReac Muscle Verified 12/13/18 22:02 Aches Home Meds: Home Meds Ziprasidone HCl [Geodon] 40 mg PO DAILY 01/15/14 [History] Ziprasidone HCl [Geodon] 80 mg PO BEDTIME 08/06/14 [History] Acetaminophen [Tylenol Extra Strength] 500 mg PO Q4HR 02/27/17 [History] Cannabis 1 vaporole INH QID PRN 01/11/18 [History] Vitamin A 20,000 units PO DAILY 07/26/18 [History] ALPRAZolam 2 mg PO QID PRN 12/13/18 [History] Past Medical History HEENT History: Reports: Hard of Hearing, Impaired Vision, Otitis Media Other HEENT History: wears glasses Cardiovascular History: Reports: Afib, High Cholesterol, Hypertension, SOB on Exertion, Syncope Respiratory History: Reports: Asthma, Bronchitis, Recurrent, Pneumonia, Recurrent Gastrointestinal History: Reports: Bowel Obstruction, Chronic Constipation, Chronic Diarrhea, GERD, Hepatitis, Hiatal Hernia Other Gastrointestinal History: Hepatitis A Genitourinary History: Reports: Renal Calculus, UTI, Recurrent Other Genitourinary History: kidney infections Musculoskeletal History: Reports: Arthritis, Back Pain, Chronic, Fracture Other Musculoskeletal History: chronic leg pains, bone spurs left shoulder Neurological History: Reports: Concussion, Head Trauma, Migraines, Seizure Other Neuro History: 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 Psychiatric History: Reports: Addiction, Anxiety, Bipolar, Depression, Panic Attack, Psych Hospitalization(s), Schizophrenia, Suicide Attempt, Suicidal Ideation Endocrine/Metabolic History: Reports: Diabetes, Type II, Vitamin D Deficiency, Other (See Below) Other Endocrine/Metabolic History: not Diabetic since bariatric procedure Hematologic History: Reports: B12 Deficiency, Folic Acid Dermatologic History: Reports: Other (See Below) Other Dermatologic History: teeny adverse acollor-pigmentation disorder - Infectious Disease History Infectious Disease History: Reports: Hepatitis A - Past Surgical History HEENT Surgical History: Reports: Eye Surgery, Oral Surgery Cardiovascular Surgical History: Reports: Other (See Below) Other Cardiovascular Surgeries/Procedures: cardioversions Respiratory Surgical History: Reports: None GI Surgical History: Reports: Bariatric Procedure, Other (See Below) Other GI Surgeries/Procedures: hiatal hernia repair Male Surgical History: Reports: None Endocrine Surgical History: Reports: None Neurological Surgical History: Reports: None Musculoskeletal Surgical History: Reports: Ganglion Cyst, Shoulder Surgery, Other (See Below) Other Musculoskeletal Surgeries/Procedures:: hip surgery. left ankle surgery. left shoulder bone spurs Dermatological Surgical History: Reports: None Social & Family History - Family History Family Medical History: Noncontributory Cardiac: Reports: Bypass, CAD, [place] Musculoskeletal: Reports: Arthritis, Back pain, Chronic, Neck Pain, Chronic Neurological: Reports: Alzheimers Disease Psychiatric: Reports: Anxiety, Bipolar, Depression Oncologic: Reports: Leukemia, Lymphoma - Tobacco Use Smoking Status *Q: Current Every Day Smoker Years of Tobacco use: 38 Packs/Tins Daily: 1 - Caffeine Use Caffeine Use: Reports: Coffee, Soda, Tea - Recreational Drug Use Recreational Drug Use: No Review of Systems - Review of Systems Review Of Systems: See Below Constitutional: Denies: Fever Respiratory: Denies: Shortness of Breath Cardiovascular: Denies: Chest Pain Skin: Denies: Bruising Neurological: Denies: Paresthesia ED EXAM, GENERAL - Physical Exam Exam: See Below Exam Limited By: No Limitations General Appearance: Alert, No Apparent Distress Head: Atraumatic Respiratory/Chest: No Respiratory Distress Extremities: Other (Exam is otherwise limited to the lower extremities. The toes appear symmetric, there is slight erythema of the dorsal aspect of the right toe but no deformity, bruising or swelling. There is tenderness to the proximal phalanx with palpation.) Course - Vital Signs Last Recorded V/S: Last Vital Signs Temp 97.7 F 03/31/19 16:25 Pulse 72 03/31/19 16:25 Resp 14 03/31/19 16:25 BP 132/76 03/31/19 16:25 Pulse Ox 97 03/31/19 16:25 - Re-Assessments/Exams Free Text/Narrative Re-Assessment/Exam: 03/31/19 17:51 An x-ray was obtained and shows no fracture. Patient was insistent that he was unable to work because of the significant pain. I wrote him a note that he can take to work that says he injured his toe but he will have to decide if he is going to work. Ibuprofen and elevation may be helpful. Departure - Departure Time of Disposition: 18:15 Disposition: Home, Self-Care 01 Clinical Impression: Contusion, toe Qualifiers: Encounter type: initial encounter Toe: great toe Damage to nail status: without damage Laterality: right Qualified Code(s): S90.111A - Contusion of right great toe without damage to nail, initial encounter - Discharge Information Instructions: Contusion, [id number] Referrals: Pieter Kim MD [Primary Care Provider] - Forms: ED Department Discharge Care Plan Goals: Ibuprofen and elevation may help, increase activity as tolerated and resume regular activities as soon as possible. Recheck next week if not improving satisfactorily.
== END 2019-03-31 18:15 | disposition home or self-care (01) ==
LOC: JP.ED 16:07
DX: S90.111A Contusion of right great toe without damage to nail, initial encounter (principal); I48.91 Unspecified atrial fibrillation; E78.00 Pure hypercholesterolemia, unspecified; I10 Essential (primary) hypertension; E11.9 Type 2 diabetes mellitus without complications; F17.210 Nicotine dependence, cigarettes, uncomplicated; F41.9 Anxiety disorder, unspecified; F31.9 Bipolar disorder, unspecified; W23.0XXA Caught, crushed, jammed, or pinched between moving objects, initial encounter; Z88.5 Allergy status to narcotic agent; Z88.8 Allergy status to other drugs, medicaments and biological substances; Z79.899 Other long term (current) drug therapy
CPT/HCPCS: 73660-T5; 99282; 99283-25

== ENCOUNTER 2019-04-11 14:01 | Emergency (ER) | payer SELFPAY ==
--- NOTE | 2019-04-11 14:30 | EDM.PDOC ---
ED HPI GENERAL MEDICAL PROBLEM - General Chief Complaint: Laceration Stated Complaint: CUT FOREHEAD Time Seen by Provider: 04/11/19 14:20 Source of Information: Reports: Patient History Limitations: Reports: No Limitations - History of Present Illness INITIAL COMMENTS - FREE TEXT/NARRATIVE: pt arrived after hitting the corner of the frier with the top of his head. He was not knocked out. He did have a fair amout of bleeding he thought he had a good sized laceration He had his last tetanus In 2011, so he is current. Onset: Today Duration: Hour(s): Location: Reports: Head Associated Symptoms: Reports: No Other Symptoms - Related Data Allergies Allergy/AdvReac Type Severity Reaction Status Date / Time codeine Allergy Rash Verified 04/11/19 14:22 lithium Allergy Seizure Verified 04/11/19 14:22 naproxen AdvReac Nausea Verified 04/11/19 14:22 simvastatin AdvReac Muscle Verified 04/11/19 14:22 Aches Home Meds: Home Meds Ziprasidone HCl [Geodon] 40 mg PO DAILY 01/15/14 [History] Ziprasidone HCl [Geodon] 80 mg PO BEDTIME 08/06/14 [History] Acetaminophen [Tylenol Extra Strength] 500 mg PO Q4HR 02/27/17 [History] Cannabis 1 vaporole INH QID PRN 01/11/18 [History] Vitamin A 20,000 units PO DAILY 07/26/18 [History] ALPRAZolam 2 mg PO QID PRN 12/13/18 [History] Past Medical History HEENT History: Reports: Hard of Hearing, Impaired Vision, Otitis Media Other HEENT History: wears glasses Cardiovascular History: Reports: Afib, High Cholesterol, Hypertension, SOB on Exertion, Syncope Respiratory History: Reports: Asthma, Bronchitis, Recurrent, Pneumonia, Recurrent Gastrointestinal History: Reports: Bowel Obstruction, Chronic Constipation, Chronic Diarrhea, GERD, Hepatitis, Hiatal Hernia Other Gastrointestinal History: Hepatitis A Genitourinary History: Reports: Renal Calculus, UTI, Recurrent Other Genitourinary History: kidney infections Musculoskeletal History: Reports: Arthritis, Back Pain, Chronic, Fracture Other Musculoskeletal History: chronic leg pains, bone spurs left shoulder Neurological History: Reports: Concussion, Head Trauma, Migraines, Seizure Other Neuro History: 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 Psychiatric History: Reports: Addiction, Anxiety, Bipolar, Depression, Panic Attack, Psych Hospitalization(s), Schizophrenia, Suicide Attempt, Suicidal Ideation Endocrine/Metabolic History: Reports: Diabetes, Type II, Vitamin D Deficiency, Other (See Below) Other Endocrine/Metabolic History: not Diabetic since bariatric procedure Hematologic History: Reports: B12 Deficiency, Folic Acid Dermatologic History: Reports: Other (See Below) Other Dermatologic History: teeny adverse acollor-pigmentation disorder - Infectious Disease History Infectious Disease History: Reports: Hepatitis A - Past Surgical History HEENT Surgical History: Reports: Eye Surgery, Oral Surgery Cardiovascular Surgical History: Reports: Other (See Below) Other Cardiovascular Surgeries/Procedures: cardioversions Respiratory Surgical History: Reports: None GI Surgical History: Reports: Bariatric Procedure, Other (See Below) Other GI Surgeries/Procedures: hiatal hernia repair Male Surgical History: Reports: None Endocrine Surgical History: Reports: None Neurological Surgical History: Reports: None Musculoskeletal Surgical History: Reports: Ganglion Cyst, Shoulder Surgery, Other (See Below) Other Musculoskeletal Surgeries/Procedures:: hip surgery. left ankle surgery. left shoulder bone spurs Dermatological Surgical History: Reports: None Social & Family History - Family History Family Medical History: Noncontributory Cardiac: Reports: Bypass, CAD, [place] Musculoskeletal: Reports: Arthritis, Back pain, Chronic, Neck Pain, Chronic Neurological: Reports: Alzheimers Disease Psychiatric: Reports: Anxiety, Bipolar, Depression Oncologic: Reports: Leukemia, Lymphoma - Caffeine Use Caffeine Use: Reports: Coffee, Soda, Tea ED ROS GENERAL - Review of Systems Review Of Systems: See Below Constitutional: Reports: No Symptoms HEENT: Reports: Other (pt hit the top of his head with the corner of the frier. -- this was at the [facility]. ) Cardiovascular: Reports: No Symptoms Endocrine: Reports: No Symptoms GI/Abdominal: Reports: No Symptoms : Reports: No Symptoms Musculoskeletal: Reports: No Symptoms ED EXAM, SKIN/RASH Exam: See Below Text/Narrative:: pt had some bleeding from the top of his head and in looking he just had a tiny puncture wound from the corner. Exam Limited By: No Limitations General Appearance: Alert, Anxious, Moderate Distress Ears: Normal TMs Nose: Normal Inspection Throat/Mouth: Normal Inspection Head: Other (pt has a tiny puncture wound which did do some bleeding this will not require sutures. ) Neck: Normal Inspection Respiratory/Chest: No Respiratory Distress Cardiovascular: Regular Rate, Rhythm GI/Abdominal: Soft, Non-Tender Course - Orders/Labs/Meds Meds: Medications Discontinued Medications Generic Name Dose Route Start Last Admin Trade Name Alberto PRN Reason Stop Dose Admin Bacitracin 1 dose 04/11/19 14:41 04/11/19 14:49 Bacitracin Oint 1 Gm TOP 04/11/19 14:42 1 dose ONETIME ONE Administration - Re-Assessments/Exams Free Text/Narrative Re-Assessment/Exam: 04/11/19 14:46 pt is current with his tetanus. The area was cleaned and bacatracin was applied. Departure - Departure Time of Disposition: 14:47 Disposition: Home, Self-Care 01 Condition: Fair Clinical Impression: Puncture wound of head - Discharge Information Referrals: Pieter Kim MD [Primary Care Provider] - Forms: ED Department Discharge Care Plan Goals: apply ointment to the area.
[2019-04-11] MEDS ORDERED: Bacitracin Oint 1 GM U/D Packet TOP ONE (14:41)
[2019-04-11 14:59] VITALS: BP 105/70
== END 2019-04-11 15:11 | disposition home or self-care (01) ==
LOC: JP.ED 14:01
DX: S01.83XA Puncture wound without foreign body of other part of head, initial encounter (principal); E78.00 Pure hypercholesterolemia, unspecified; I10 Essential (primary) hypertension; E11.9 Type 2 diabetes mellitus without complications; I48.91 Unspecified atrial fibrillation; Z88.5 Allergy status to narcotic agent; Z88.8 Allergy status to other drugs, medicaments and biological substances; Z79.899 Other long term (current) drug therapy; W22.8XXA Striking against or struck by other objects, initial encounter; Y92.511 Restaurant or cafe as the place of occurrence of the external cause
CPT/HCPCS: 99282

== ENCOUNTER 2019-05-07 16:52 | Emergency (ER) | payer MEDICAID ==
[2019-05-07 16:55] VITALS: BP 121/70; PULSE 62
[2019-05-07] MEDS ORDERED: Ziprasidone HCl 20 MG Cap PO ONE (17:07)
--- NOTE | 2019-05-07 17:19 | EDM.PDOC ---
ED HPI GENERAL MEDICAL PROBLEM - General Chief Complaint: Neck Problem Stated Complaint: FAINTED AFTER WORK Time Seen by Provider: 05/07/19 17:03 Source of Information: Reports: Patient History Limitations: Reports: No Limitations - History of Present Illness INITIAL COMMENTS - FREE TEXT/NARRATIVE: states he was at work today when his legs just gave out; he fell onto the floor , his buttocks first, more on the right side, resulting in his right hip pain. He also has right scapular pain but this is chronic. He had recent MRI of his neck which shows severe narrowing of spinal canal, moderate to severe bilateral foraminal narrowing, impingement of c6 nerve roots , etc... It is recommended he be seen by neurosurgery; he isn't able to get in at this time due to no insurance. Onset: Today Location: Reports: Upper Extremity, Right, Lower Extremity, Right Quality: Reports: Stabbing Severity: Moderate Improves with: Reports: None Worsens with: Reports: None Associated Symptoms: Reports: Weakness Right Generalized Pain Score (Numeric/FACES): 7 - Related Data Allergies Allergy/AdvReac Type Severity Reaction Status Date / Time codeine Allergy Rash Verified 04/11/19 14:22 lithium Allergy Seizure Verified 04/11/19 14:22 naproxen AdvReac Nausea Verified 04/11/19 14:22 simvastatin AdvReac Muscle Verified 04/11/19 14:22 Aches Home Meds: Home Meds Ziprasidone HCl [Geodon] 40 mg PO DAILY 01/15/14 [History] Ziprasidone HCl [Geodon] 80 mg PO BEDTIME 08/06/14 [History] Acetaminophen [Tylenol Extra Strength] 500 mg PO Q4HR 02/27/17 [History] Cannabis 1 vaporole INH QID PRN 01/11/18 [History] Vitamin A 20,000 units PO DAILY 07/26/18 [History] ALPRAZolam 2 mg PO QID PRN 12/13/18 [History] Past Medical History HEENT History: Reports: Hard of Hearing, Impaired Vision, Otitis Media Other HEENT History: wears glasses Cardiovascular History: Reports: Afib, High Cholesterol, Hypertension, SOB on Exertion, Syncope Respiratory History: Reports: Asthma, Bronchitis, Recurrent, Pneumonia, Recurrent Gastrointestinal History: Reports: Bowel Obstruction, Chronic Constipation, Chronic Diarrhea, GERD, Hepatitis, Hiatal Hernia Other Gastrointestinal History: Hepatitis A Genitourinary History: Reports: Renal Calculus, UTI, Recurrent Other Genitourinary History: kidney infections Musculoskeletal History: Reports: Arthritis, Back Pain, Chronic, Fracture Other Musculoskeletal History: chronic leg pains, bone spurs left shoulder Neurological History: Reports: Concussion, Head Trauma, Migraines, Seizure Other Neuro History: 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 Psychiatric History: Reports: Addiction, Anxiety, Bipolar, Depression, Panic Attack, Psych Hospitalization(s), Schizophrenia, Suicide Attempt, Suicidal Ideation Endocrine/Metabolic History: Reports: Diabetes, Type II, Vitamin D Deficiency, Other (See Below) Other Endocrine/Metabolic History: not Diabetic since bariatric procedure Hematologic History: Reports: B12 Deficiency, Folic Acid Dermatologic History: Reports: Other (See Below) Other Dermatologic History: teeny adverse acollor-pigmentation disorder - Infectious Disease History Infectious Disease History: Reports: Hepatitis A - Past Surgical History HEENT Surgical History: Reports: Eye Surgery, Oral Surgery Cardiovascular Surgical History: Reports: Other (See Below) Other Cardiovascular Surgeries/Procedures: cardioversions Respiratory Surgical History: Reports: None GI Surgical History: Reports: Bariatric Procedure, Other (See Below) Other GI Surgeries/Procedures: hiatal hernia repair Male Surgical History: Reports: None Endocrine Surgical History: Reports: None Neurological Surgical History: Reports: None Musculoskeletal Surgical History: Reports: Ganglion Cyst, Shoulder Surgery, Other (See Below) Other Musculoskeletal Surgeries/Procedures:: hip surgery. left ankle surgery. left shoulder bone spurs Dermatological Surgical History: Reports: None Social & Family History - Family History Family Medical History: Noncontributory Cardiac: Reports: Bypass, CAD, [place] Musculoskeletal: Reports: Arthritis, Back pain, Chronic, Neck Pain, Chronic Neurological: Reports: Alzheimers Disease Psychiatric: Reports: Anxiety, Bipolar, Depression Oncologic: Reports: Leukemia, Lymphoma - Tobacco Use Smoking Status *Q: Heavy Tobacco Smoker Years of Tobacco use: 30 Packs/Tins Daily: 1 - Caffeine Use Caffeine Use: Reports: Coffee, Energy Drinks, Soda - Recreational Drug Use Recreational Drug Use: Yes Recreational Drug Type: Reports: Marijuana/Hashish ED ROS GENERAL - Review of Systems Review Of Systems: See Below Constitutional: Reports: Weakness Respiratory: Reports: No Symptoms Cardiovascular: Reports: No Symptoms GI/Abdominal: Reports: No Symptoms : Reports: No Symptoms Musculoskeletal: Reports: Neck Pain, Shoulder Pain, Arm Pain, Other (right hip pain) Skin: Reports: No Symptoms Neurological: Reports: Paresthesia (right upper extremity) Psychiatric: Reports: No Symptoms ED EXAM, GENERAL - Physical Exam Exam: See Below Exam Limited By: No Limitations General Appearance: Alert, WD/WN, No Apparent Distress Nose: Normal Inspection, Normal Mucosa Throat/Mouth: Normal Inspection, Normal Lips Head: Atraumatic, Normocephalic Neck: Limited Range of Motion, Tender Lateral (right side) Respiratory/Chest: Lungs Clear, Normal Breath Sounds Cardiovascular: Regular Rate, Rhythm Peripheral Pulses: 4+: Radial (L), Radial (R), Posterior Tibial (L), Posterior Tibial (R), Dorsalis Pedis (L), Dorsalis Pedis (R) GI/Abdominal: Normal Bowel Sounds, Soft Back Exam: Decreased Range of Motion Extremities: Arm Pain, Leg Pain (limited rom right arm, +radial pulse, +cms, Right hip, pain with palpation, limited rom, +dp and pt pulses, +cms) Course - Vital Signs Last Recorded V/S: Last Vital Signs Temp 96.5 F 05/07/19 17:02 Pulse 62 05/07/19 17:02 Resp 32 H 05/07/19 17:02 BP 121/70 05/07/19 17:02 Pulse Ox 96 05/07/19 17:02 - Orders/Labs/Meds Meds: Medications Discontinued Medications Generic Name Dose Route Start Last Admin Trade Name Alberto PRN Reason Stop Dose Admin Hydromorphone HCl 0.5 mg 05/07/19 17:20 05/07/19 17:26 Dilaudid IM 05/07/19 17:21 0.5 mg ONETIME ONE Administration Ziprasidone 40 mg 05/07/19 17:07 05/07/19 17:24 Geodon PO 05/07/19 17:08 40 mg BEDTIME ONE Administration - Re-Assessments/Exams Free Text/Narrative Re-Assessment/Exam: 05/07/19 17:27 xray ordered he states he needs his Geodon before he goes into withdrawal; is hyperventilating. Departure - Departure Time of Disposition: 17:55 Disposition: Home, Self-Care 01 Condition: Fair Clinical Impression: Hip pain, right, Cervical pain (neck) - Discharge Information *PRESCRIPTION DRUG MONITORING PROGRAM REVIEWED*: Yes *COPY OF PRESCRIPTION DRUG MONITORING REPORT IN PATIENT ALEX: Not Applicable Instructions: Hip Pain Referrals: PCP,None [Primary Care Provider] - Forms: ED Department Discharge Additional Instructions: Please follow up with neurosurgery tomorrow rest ice TENS unit Call with questions. - Problem List & Annotations (1) Hip pain, right SNOMED Code(s): 94724366 Code(s): M25.551 - PAIN IN RIGHT HIP Status: Acute Priority: Low (2) Cervical pain (neck) SNOMED Code(s): 53708463 Code(s): M54.2 - CERVICALGIA Status: Acute Priority: Medium
[2019-05-07] MEDS ORDERED: HYDROmorphone 0.5 MG/0.5 ML Syringe IM ONE (17:20)
--- NOTE | 2019-05-07 17:54 | CRLCR ---
TECHNIQUE: Two views of the right hip. INDICATION: Fall. FINDINGS: No acute right hip fracture or dislocation. Slight right hip degenerative change. Otherwise normal. Dictated by Larry Keller MD @ 05/07/2019 5:52:55 PM Dictated by: Larry Keller MD @ 05/07/2019 17:52:58 (Electronically Signed)
== END 2019-05-07 18:06 | disposition home or self-care (01) ==
LOC: JP.ED 16:52
DX: M25.551 Pain in right hip (principal); M54.2 Cervicalgia; I48.91 Unspecified atrial fibrillation; E78.00 Pure hypercholesterolemia, unspecified; I10 Essential (primary) hypertension; Z79.899 Other long term (current) drug therapy; Z88.8 Allergy status to other drugs, medicaments and biological substances
CPT/HCPCS: 73502; 96372; 99283; A9270; J1170

== ENCOUNTER 2019-07-20 03:31 | Emergency (ER) | payer SELFPAY ==
[2019-07-20] MEDS ORDERED: Acetaminophen 325 MG Tab PO ONE (04:06)
--- NOTE | 2019-07-20 04:09 | EDM.PDOC ---
ED HPI GENERAL MEDICAL PROBLEM - General Chief Complaint: Cardiovascular Problem Stated Complaint: MEDICAL VIA NORTH Time Seen by Provider: 07/20/19 04:04 Source of Information: Reports: Patient History Limitations: Reports: No Limitations - History of Present Illness INITIAL COMMENTS - FREE TEXT/NARRATIVE: pt arrived with a history of being lite headed for about 1 hr. He felt like his heart was rapid and irregular. He now feels back to normal except he has a rt sided headache. He is rating that at a 5. Onset: Today, Sudden Duration: Hour(s):, Other (pt was very liteheaded for about 1 hour. ) Location: Reports: Head, Other (pt does have a persistent rt sided headache. ) Associated Symptoms: Reports: Other (pt did feel dizzy. ) Back Pain Score (Numeric/FACES): 4 - Related Data Allergies Allergy/AdvReac Type Severity Reaction Status Date / Time codeine Allergy Rash Verified 07/20/19 03:39 lithium Allergy Seizure Verified 07/20/19 03:39 naproxen AdvReac Nausea Verified 07/20/19 03:39 simvastatin AdvReac Muscle Verified 07/20/19 03:39 Aches Home Meds: Home Meds Ziprasidone HCl [Geodon] 40 mg PO DAILY 01/15/14 [History] Ziprasidone HCl [Geodon] 80 mg PO BEDTIME 08/06/14 [History] Acetaminophen [Tylenol Extra Strength] 500 mg PO Q4HR 02/27/17 [History] ALPRAZolam 2 mg PO QID PRN 12/13/18 [History] Cannabidiol (Cbd) Extract [Cannabis (Medical)] 10 mg INH QID PRN 07/10/19 [ History] Cannabidiol (Cbd) Extract [Cannabis (Medical)] 10 mg PO BID PRN 07/10/19 [ History] Temazepam 30 mg PO BEDTIME 07/20/19 [History] Past Medical History HEENT History: Reports: Hard of Hearing, Impaired Vision, Otitis Media Other HEENT History: wears glasses Cardiovascular History: Reports: Afib, High Cholesterol, Hypertension, SOB on Exertion, Syncope Respiratory History: Reports: Asthma, Bronchitis, Recurrent, Pneumonia, Recurrent Gastrointestinal History: Reports: Bowel Obstruction, Chronic Constipation, Chronic Diarrhea, GERD, Hepatitis, Hiatal Hernia Other Gastrointestinal History: Hepatitis A Genitourinary History: Reports: Renal Calculus, UTI, Recurrent Other Genitourinary History: kidney infections Musculoskeletal History: Reports: Arthritis, Back Pain, Chronic, Fracture Other Musculoskeletal History: chronic leg pains, bone spurs left shoulder Neurological History: Reports: Concussion, Head Trauma, Migraines, Seizure Other Neuro History: 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 Psychiatric History: Reports: Addiction, Anxiety, Bipolar, Depression, Panic Attack, Psych Hospitalization(s), Schizophrenia, Suicide Attempt, Suicidal Ideation Endocrine/Metabolic History: Reports: Diabetes, Type II, Vitamin D Deficiency, Other (See Below) Other Endocrine/Metabolic History: not Diabetic since bariatric procedure Hematologic History: Reports: B12 Deficiency, Folic Acid Dermatologic History: Reports: Other (See Below) Other Dermatologic History: teeny adverse acollor-pigmentation disorder - Infectious Disease History Infectious Disease History: Reports: Hepatitis A - Past Surgical History HEENT Surgical History: Reports: Eye Surgery, Oral Surgery Cardiovascular Surgical History: Reports: Other (See Below) Other Cardiovascular Surgeries/Procedures: cardioversions Respiratory Surgical History: Reports: None GI Surgical History: Reports: Bariatric Procedure, Other (See Below) Other GI Surgeries/Procedures: hiatal hernia repair Neurological Surgical History: Reports: None Musculoskeletal Surgical History: Reports: Ganglion Cyst, Shoulder Surgery, Other (See Below) Other Musculoskeletal Surgeries/Procedures:: hip surgery. left ankle surgery. left shoulder bone spurs Dermatological Surgical History: Reports: None Social & Family History - Family History Family Medical History: Noncontributory Cardiac: Reports: Bypass, CAD, [place] Musculoskeletal: Reports: Arthritis, Back pain, Chronic, Neck Pain, Chronic Neurological: Reports: Alzheimers Disease Psychiatric: Reports: Anxiety, Bipolar, Depression Oncologic: Reports: Leukemia, Lymphoma - Tobacco Use Smoking Status *Q: Current Every Day Smoker Years of Tobacco use: 34 Packs/Tins Daily: 0.8 - Caffeine Use Caffeine Use: Reports: Soda - Recreational Drug Use Recreational Drug Use: No ED ROS GENERAL - Review of Systems Review Of Systems: See Below Constitutional: Reports: No Symptoms HEENT: Reports: No Symptoms Respiratory: Reports: No Symptoms Cardiovascular: Reports: Palpitations, Other (pt felt like his heart was rapid and irregular. ) Endocrine: Reports: No Symptoms GI/Abdominal: Reports: No Symptoms : Reports: No Symptoms Musculoskeletal: Reports: Hand Pain Skin: Reports: No Symptoms ED EXAM, GENERAL - Physical Exam Exam: See Below Free Text/Narrative:: pt is now feeling mucjh better. He was feeling quite dizzy. He had a rapid pulse and it was irregullar. He has a history of atrial fib. Exam Limited By: No Limitations General Appearance: Alert, No Apparent Distress, Anxious, Other (pupils are equal nd reactive. ) Ears: Normal TMs Nose: Normal Inspection Throat/Mouth: Normal Inspection Head: Atraumatic Neck: Normal Inspection Respiratory/Chest: No Respiratory Distress Cardiovascular: Regular Rate, Rhythm GI/Abdominal: Soft, Non-Tender (Male) Exam: Deferred Rectal (Males) Exam: Deferred Back Exam: Normal Inspection Extremities: Normal Inspection Neurological: Alert, Oriented, Normal Cognition Psychiatric: Normal Affect Course - Vital Signs Last Recorded V/S: Last Vital Signs Temp 36.7 C 07/20/19 03:34 Pulse 72 07/20/19 03:34 Resp 14 07/20/19 03:34 BP 104/69 07/20/19 03:34 Pulse Ox 98 07/20/19 03:34 Orthostatic Blood Pressure [ 111/74 Standing] Orthostatic Blood Pressure [ 110/63 Sitting] Orthostatic Blood Pressure [ 100/60 Supine] - Orders/Labs/Meds Orders: Active Orders 24 hr Category Date Time Status Orthostatic Vital Signs [RC] ASDIRECTED Care 07/20/19 03:55 Active Labs: Laboratory Tests 07/20/19 07/20/19 07/20/19 Range/Units 04:03 04:03 04:31 WBC 9.0 (4.5-11.0) K/uL RBC 4.90 (4.30-5.90) M/uL Hgb 14.2 (12.0-15.0) g/dL Hct 43.3 (40.0-54.0) % MCV 88 (80-98) fL MCH 29 (27-31) pg MCHC 33 (32-36) % Plt Count 223 (150-400) K/uL Neut % (Auto) 52 (36-66) % Lymph % (Auto) 35 (24-44) % [place] % (Auto) 12 H (2-6) % Eos % (Auto) 1 L (2-4) % Baso % (Auto) 0 (0-1) % Sodium 138 L (140-148) mmol/L Potassium 4.7 (3.6-5.2) mmol/L Chloride 104 (100-108) mmol/L Carbon Dioxide 27 (21-32) mmol/L Anion Gap 11.7 (5.0-14.0) mmol/L BUN 15 (7-18) mg/dL Creatinine 0.9 (0.8-1.3) mg/dL Est Cr Clr Drug Dosing 108.51 mL/min Estimated GFR (MDRD) > 60 (>60) Glucose 88 (74-106) mg/dL Calcium 8.4 L (8.5-10.1) mg/dL Magnesium (1.8-2.4) mg/dL Total Bilirubin 0.3 (0.2-1.0) mg/dL AST 33 (15-37) U/L ALT 44 (12-78) U/L Alkaline Phosphatase 65 (46-116) U/L Total Protein 6.4 (6.4-8.2) g/dL Albumin 3.4 (3.4-5.0) g/dL Globulin 3.0 (2.3-3.5) g/dL Albumin/Globulin Ratio 1.1 L (1.2-2.2) TSH, Ultra Sensitive (0.358-3.740) uIU/mL Urine Color Yellow (YELLOW) Urine Appearance Clear (CLEAR) Urine pH 6.0 (5.0-8.0) Ur Specific [place] 1.010 (1.008-1.030) Urine Protein Negative (NEGATIVE) mg/dL Urine Glucose (UA) Negative (NEGATIVE) mg/dL Urine Ketones Negative (NEGATIVE) mg/dL Urine Occult Blood Negative (NEGATIVE) Urine Nitrite Negative (NEGATIVE) Urine Bilirubin Negative (NEGATIVE) Urine Urobilinogen 0.2 (0.2-1.0) EU/dL Ur Leukocyte Esterase Negative (NEGATIVE) Urine RBC Not seen (0-5) Urine WBC Not seen (0-5) Ur Epithelial Cells Not seen Amorphous Sediment Few Urine Bacteria Not seen Urine Mucus Not seen 07/20/19 07/20/19 Range/Units 04:31 04:31 WBC (4.5-11.0) K/uL RBC (4.30-5.90) M/uL Hgb (12.0-15.0) g/dL Hct (40.0-54.0) % MCV (80-98) fL MCH (27-31) pg MCHC (32-36) % Plt Count (150-400) K/uL Neut % (Auto) (36-66) % Lymph % (Auto) (24-44) % [place] % (Auto) (2-6) % Eos % (Auto) (2-4) % Baso % (Auto) (0-1) % Sodium (140-148) mmol/L Potassium (3.6-5.2) mmol/L Chloride (100-108) mmol/L Carbon Dioxide (21-32) mmol/L Anion Gap (5.0-14.0) mmol/L BUN (7-18) mg/dL Creatinine (0.8-1.3) mg/dL Est Cr Clr Drug Dosing mL/min Estimated GFR (MDRD) (>60) Glucose (74-106) mg/dL Calcium (8.5-10.1) mg/dL Magnesium 2.0 (1.8-2.4) mg/dL Total Bilirubin (0.2-1.0) mg/dL AST (15-37) U/L ALT (12-78) U/L Alkaline Phosphatase (46-116) U/L Total Protein (6.4-8.2) g/dL Albumin (3.4-5.0) g/dL Globulin (2.3-3.5) g/dL Albumin/Globulin Ratio (1.2-2.2) TSH, Ultra Sensitive 2.824 (0.358-3.740) uIU/mL Urine Color (YELLOW) Urine Appearance (CLEAR) Urine pH (5.0-8.0) Ur Specific [place] (1.008-1.030) Urine Protein (NEGATIVE) mg/dL Urine Glucose (UA) (NEGATIVE) mg/dL Urine Ketones (NEGATIVE) mg/dL Urine Occult Blood (NEGATIVE) Urine Nitrite (NEGATIVE) Urine Bilirubin (NEGATIVE) Urine Urobilinogen (0.2-1.0) EU/dL Ur Leukocyte Esterase (NEGATIVE) Urine RBC (0-5) Urine WBC (0-5) Ur Epithelial Cells Amorphous Sediment Urine Bacteria Urine Mucus Meds: Medications Discontinued Medications Generic Name Dose Route Start Last Admin Trade Name Freq PRN Reason Stop Dose Admin Acetaminophen 650 mg 07/20/19 04:06 07/20/19 04:13 Tylenol PO 07/20/19 04:07 650 mg NOW ONE Administration - Re-Assessments/Exams Free Text/Narrative Re-Assessment/Exam: 07/20/19 05:27 pt was found to have normal labs, He did have rt sided headache which went away with tylenol. His orthostatics were normal. Departure - Departure Time of Disposition: 05:22 Disposition: Home, Self-Care 01 Condition: Fair Clinical Impression: Dizziness, Heart palpitations Referrals: PCP,None [Primary Care Provider] - Forms: ED Department Discharge Care Plan Goals: rtc if this reoccurs or if his heart is rapid and irregular, continue same meds. - My Orders Last 24 Hours: My Active Orders 07/20/19 03:55 Orthostatic Vital Signs [RC] ASDIRECTED - Assessment/Plan Last 24 Hours: My Active Orders 07/20/19 03:55 Orthostatic Vital Signs [RC] ASDIRECTED
[2019-07-20 06:24] VITALS: PULSE 65
[2019-07-20 06:25] VITALS: BP 95/59
== END 2019-07-20 05:50 | disposition home or self-care (01) ==
LOC: JP.ED 03:31
DX: R00.2 Palpitations (principal); I10 Essential (primary) hypertension; E11.9 Type 2 diabetes mellitus without complications; I48.91 Unspecified atrial fibrillation; M19.90 Unspecified osteoarthritis, unspecified site; F41.0 Panic disorder [episodic paroxysmal anxiety]; F32.9 Major depressive disorder, single episode, unspecified; F17.210 Nicotine dependence, cigarettes, uncomplicated; Z88.5 Allergy status to narcotic agent; Z88.8 Allergy status to other drugs, medicaments and biological substances; Z79.899 Other long term (current) drug therapy
CPT/HCPCS: 36415; 80053; 81001; 83735; 84443; 85025; 99284; A9270-GY

== ENCOUNTER 2019-09-08 01:59 | Emergency (ER) | payer MEDICARE, MEDICAID ==
--- NOTE | 2019-09-08 02:29 | EDM.PDOC ---
ED HPI GENERAL MEDICAL PROBLEM - General Chief Complaint: Gastrointestinal Problem Stated Complaint: MEDICAL VIA NORTH Time Seen by Provider: 09/08/19 02:21 Source of Information: Reports: Patient, RN Notes Reviewed History Limitations: Reports: No Limitations - History of Present Illness INITIAL COMMENTS - FREE TEXT/NARRATIVE: 54-year-old gentleman presents emergency department today via EMS service complaint of nausea. He did undergo cervical injections today he has had them in the past he also had an event where he slipped and fell on the ice earlier today landing on his back. Earlier this evening he had a wave of nausea and flushing spoke with the nurses line recommend call 911 report to ED for further evaluation. In route he was given 4 mg of Zofran he states all of his symptoms have resolved he feels back to his normal self at this time. Treatments BERRY PICKER: Reports: See EMS Report Posterior Neck Pain Score (Numeric/FACES): 6 - Related Data Allergies Allergy/AdvReac Type Severity Reaction Status Date / Time codeine Allergy Rash Verified 09/03/19 17:06 lithium Allergy Seizure Verified 09/03/19 17:06 naproxen AdvReac Nausea Verified 09/03/19 17:06 simvastatin AdvReac Muscle Verified 09/03/19 17:06 Aches Home Meds: Home Meds Ziprasidone HCl [Geodon] 40 mg PO DAILY 01/15/14 [History] Ziprasidone HCl [Geodon] 80 mg PO BEDTIME 08/06/14 [History] Acetaminophen [Tylenol Extra Strength] 500 mg PO Q4HR 02/27/17 [History] ALPRAZolam 2 mg PO QID PRN 12/13/18 [History] Cannabidiol (Cbd) Extract [Cannabis (Medical)] 10 mg INH QID PRN 07/10/19 [ History] Cannabidiol (Cbd) Extract [Cannabis (Medical)] 10 mg PO BID PRN 07/10/19 [ History] Temazepam 30 mg PO BEDTIME 07/20/19 [History] Cyclobenzaprine [Flexeril] 10 mg PO QID 09/08/19 [History] Gabapentin [Neurontin] 200 mg PO TID 09/08/19 [History] Gabapentin [Neurontin] 600 mg PO BEDTIME 09/08/19 [History] Past Medical History HEENT History: Reports: Hard of Hearing, Impaired Vision, Otitis Media Other HEENT History: wears glasses Cardiovascular History: Reports: Afib, High Cholesterol, Hypertension, SOB on Exertion, Syncope Respiratory History: Reports: Asthma, Bronchitis, Recurrent, Pneumonia, Recurrent Gastrointestinal History: Reports: Bowel Obstruction, Chronic Constipation, Chronic Diarrhea, GERD, Hepatitis, Hiatal Hernia Other Gastrointestinal History: Hepatitis A Genitourinary History: Reports: Renal Calculus, UTI, Recurrent Other Genitourinary History: kidney infections Musculoskeletal History: Reports: Arthritis, Back Pain, Chronic, Fracture, Neck Pain, Chronic Other Musculoskeletal History: chronic leg pains, bone spurs left shoulder Neurological History: Reports: Concussion, Head Trauma, Migraines, Seizure Other Neuro History: 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 Psychiatric History: Reports: Addiction, Anxiety, Bipolar, Depression, Panic Attack, Psych Hospitalization(s), Schizophrenia, Suicide Attempt, Suicidal Ideation Endocrine/Metabolic History: Reports: Diabetes, Type II, Vitamin D Deficiency, Other (See Below) Other Endocrine/Metabolic History: not Diabetic since bariatric procedure Hematologic History: Reports: B12 Deficiency, Folic Acid Dermatologic History: Reports: Other (See Below) Other Dermatologic History: teeny adverse acollor-pigmentation disorder - Infectious Disease History Infectious Disease History: Reports: Chicken Pox, Hepatitis A - Past Surgical History Head Surgeries/Procedures: Reports: None HEENT Surgical History: Reports: Eye Surgery, Oral Surgery Cardiovascular Surgical History: Reports: Other (See Below) Other Cardiovascular Surgeries/Procedures: cardioversions Respiratory Surgical History: Reports: None GI Surgical History: Reports: Bariatric Procedure, Other (See Below) Other GI Surgeries/Procedures: hiatal hernia repair Endocrine Surgical History: Reports: None Neurological Surgical History: Reports: None Musculoskeletal Surgical History: Reports: Ganglion Cyst, Shoulder Surgery, Other (See Below) Other Musculoskeletal Surgeries/Procedures:: hip surgery. left ankle surgery. left shoulder bone spurs Dermatological Surgical History: Reports: None Social & Family History - Family History Family Medical History: Noncontributory Cardiac: Reports: Bypass, CAD, [place] Musculoskeletal: Reports: Arthritis, Back pain, Chronic, Neck Pain, Chronic Neurological: Reports: Alzheimers Disease Psychiatric: Reports: Anxiety, Bipolar, Depression Oncologic: Reports: Leukemia, Lymphoma - Tobacco Use Smoking Status *Q: Current Every Day Smoker Years of Tobacco use: 40 Packs/Tins Daily: 0.7 - Caffeine Use Caffeine Use: Reports: Coffee, Tea - Recreational Drug Use Recreational Drug Use: Yes Recreational Drug Type: Reports: Marijuana/Hashish, Methamphetamine, Xanax ED ROS GENERAL - Review of Systems Review Of Systems: See Below Constitutional: Reports: No Symptoms HEENT: Reports: No Symptoms Respiratory: Reports: Shortness of Breath Cardiovascular: Reports: No Symptoms GI/Abdominal: Reports: Nausea ED EXAM, GENERAL - Physical Exam Exam: See Below Exam Limited By: No Limitations General Appearance: Alert, WD/WN, No Apparent Distress Neck: Normal Inspection, Supple, Non-Tender, Full Range of Motion Respiratory/Chest: No Respiratory Distress, Lungs Clear, Normal Breath Sounds, No Accessory Muscle Use, Chest Non-Tender Cardiovascular: Regular Rate, Rhythm, No Murmur GI/Abdominal: Soft, Non-Tender Course - Vital Signs Last Recorded V/S: Last Vital Signs Temp 97.9 F 09/08/19 02:07 Pulse 67 09/08/19 02:07 Resp 14 09/08/19 02:07 BP 101/69 09/08/19 02:07 Pulse Ox 97 09/08/19 02:07 Departure - Departure Time of Disposition: 02:28 Disposition: Home, Self-Care 01 Condition: Fair Clinical Impression: Nausea - Discharge Information Referrals: PCP,None [Primary Care Provider] - Additional Instructions: Please followup with your primary care provider in 3-5 days if not better, please call return to the emergency department with worsening of symptoms. - Assessment/Plan Plan: Assessment Acuity = acute Site and laterality = nausea Etiology = unclear etiology Manifestations = none Location of injury = Home Lab values = none Plan I did offer him further evaluation blood work he declined at this time since he is asymptomatic he will follow-up with his primary care as needed This note was dictated using [employer] recognition software please call with any questions on syntax or grammar.
[2019-09-08 02:37] VITALS: BP 101/69; PULSE 67
== END 2019-09-08 02:35 | disposition home or self-care (01) ==
LOC: JP.ED 01:59
DX: R11.0 Nausea (principal); I48.91 Unspecified atrial fibrillation; I10 Essential (primary) hypertension; J45.909 Unspecified asthma, uncomplicated; E11.9 Type 2 diabetes mellitus without complications; F41.9 Anxiety disorder, unspecified; F17.210 Nicotine dependence, cigarettes, uncomplicated; Z88.5 Allergy status to narcotic agent; Z88.8 Allergy status to other drugs, medicaments and biological substances; Z88.6 Allergy status to analgesic agent; Z79.899 Other long term (current) drug therapy
CPT/HCPCS: 99282; 99283

== ENCOUNTER 2019-10-25 21:19 | Emergency (ER) | payer MEDICARE, MEDICAID ==
[2019-10-25 21:51] VITALS: BP 109/72; PULSE 75
--- NOTE | 2019-10-25 22:13 | EDM.PDOC ---
ED HPI GENERAL MEDICAL PROBLEM - General Chief Complaint: Lower Extremity Injury/Pain Stated Complaint: PAIN IN RIGHT FOOT Time Seen by Provider: 10/25/19 21:50 Source of Information: Reports: Patient History Limitations: Reports: No Limitations - History of Present Illness INITIAL COMMENTS - FREE TEXT/NARRATIVE: 54-year-old male with pain in his right foot. Yesterday he slipped off an icy step and hit his foot on the next step. This morning it was painful to bear weight and as the day is gone on it seems to be getting worse. He can still walk but is limping. He has not seen any bruising swelling or deformity. It hurts in the arch of his foot to his heel. Onset: Sudden Duration: Day(s): (Pain started within the last day after slipping on the ice) Location: Reports: Lower Extremity, Right right, heel Pain Score (Numeric/FACES): 7 - Related Data Allergies Allergy/AdvReac Type Severity Reaction Status Date / Time codeine Allergy Rash Verified 10/25/19 21:51 lithium Allergy Seizure Verified 10/25/19 21:51 naproxen AdvReac Nausea Verified 10/25/19 21:51 simvastatin AdvReac Muscle Verified 10/25/19 21:51 Aches Home Meds: Home Meds Ziprasidone HCl [Geodon] 40 mg PO DAILY 01/15/14 [History] Ziprasidone HCl [Geodon] 80 mg PO BEDTIME 08/06/14 [History] Acetaminophen [Tylenol Extra Strength] 500 mg PO Q4HR 02/27/17 [History] ALPRAZolam 2 mg PO QID PRN 12/13/18 [History] Cannabidiol (Cbd) Extract [Cannabis (Medical)] 10 mg INH QID PRN 07/10/19 [ History] Cannabidiol (Cbd) Extract [Cannabis (Medical)] 10 mg PO BID PRN 07/10/19 [ History] Cyclobenzaprine [Flexeril] 10 mg PO QID 09/08/19 [History] Gabapentin [Neurontin] 200 mg PO TID 09/08/19 [History] Gabapentin [Neurontin] 600 mg PO BEDTIME 09/08/19 [History] Acetaminophen/HYDROcodone [Delmar 325-10 MG] 1 tab PO Q6H PRN 10/25/19 [History] Past Medical History HEENT History: Reports: Hard of Hearing, Impaired Vision, Otitis Media Other HEENT History: wears glasses Cardiovascular History: Reports: Afib, High Cholesterol, Hypertension, SOB on Exertion, Syncope Respiratory History: Reports: Asthma, Bronchitis, Recurrent, Pneumonia, Recurrent Gastrointestinal History: Reports: Bowel Obstruction, Chronic Constipation, Chronic Diarrhea, GERD, Hepatitis, Hiatal Hernia Other Gastrointestinal History: Hepatitis A Genitourinary History: Reports: Renal Calculus, UTI, Recurrent Other Genitourinary History: kidney infections Musculoskeletal History: Reports: Arthritis, Back Pain, Chronic, Fracture, Neck Pain, Chronic Other Musculoskeletal History: chronic leg pains, bone spurs left shoulder Neurological History: Reports: Concussion, Head Trauma, Migraines, Seizure Other Neuro History: 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 Psychiatric History: Reports: Addiction, Anxiety, Bipolar, Depression, Panic Attack, Psych Hospitalization(s), Schizophrenia, Suicide Attempt, Suicidal Ideation Endocrine/Metabolic History: Reports: Diabetes, Type II, Vitamin D Deficiency, Other (See Below) Other Endocrine/Metabolic History: not Diabetic since bariatric procedure Hematologic History: Reports: B12 Deficiency, Folic Acid Dermatologic History: Reports: Other (See Below) Other Dermatologic History: teeny adverse acollor-pigmentation disorder - Infectious Disease History Infectious Disease History: Reports: Hepatitis A - Past Surgical History Head Surgeries/Procedures: Reports: None HEENT Surgical History: Reports: Eye Surgery, Oral Surgery Cardiovascular Surgical History: Reports: Other (See Below) Other Cardiovascular Surgeries/Procedures: cardioversions Respiratory Surgical History: Reports: None GI Surgical History: Reports: Bariatric Procedure, Other (See Below) Other GI Surgeries/Procedures: hiatal hernia repair Endocrine Surgical History: Reports: None Neurological Surgical History: Reports: None Musculoskeletal Surgical History: Reports: Ganglion Cyst, Shoulder Surgery, Other (See Below) Other Musculoskeletal Surgeries/Procedures:: right ankle surgery. hip surgery. left ankle surgery. left shoulder bone spurs Dermatological Surgical History: Reports: None Social & Family History - Family History Family Medical History: Noncontributory Cardiac: Reports: Bypass, CAD, [place] Musculoskeletal: Reports: Arthritis, Back pain, Chronic, Neck Pain, Chronic Neurological: Reports: Alzheimers Disease Psychiatric: Reports: Anxiety, Bipolar, Depression Oncologic: Reports: Leukemia, Lymphoma - Tobacco Use Smoking Status *Q: Current Every Day Smoker Years of Tobacco use: 39 Packs/Tins Daily: 1 - Caffeine Use Caffeine Use: Reports: Coffee, Energy Drinks, Soda, Tea - Recreational Drug Use Recreational Drug Use: Yes Recreational Drug Type: Reports: Marijuana/Hashish Recreational Drug Use Frequency: Daily Review of Systems - Review of Systems Review Of Systems: See Below Respiratory: Reports: No Symptoms Cardiovascular: Reports: No Symptoms Musculoskeletal: Reports: Other (Getting a total hip procedure next month) Skin: Denies: Bruising Neurological: Denies: Paresthesia ED EXAM, GENERAL - Physical Exam Exam: See Below Exam Limited By: No Limitations General Appearance: Alert, No Apparent Distress Respiratory/Chest: No Respiratory Distress Cardiovascular: Regular Rate, Rhythm Extremities: Other (Remainder of exam is limited to the right foot. The ankle is nontender, there is no swelling or bruising around the ankle. The top of the foot is nontender, the arch has moderate tenderness to palpation but no swelling or bruising) Neurological: Alert, Oriented Course - Vital Signs Last Recorded V/S: Last Vital Signs Temp 97.7 F 10/25/19 21:50 Pulse 75 10/25/19 21:50 Resp 20 10/25/19 21:50 BP 109/72 10/25/19 21:50 Pulse Ox 96 10/25/19 21:50 - Orders/Labs/Meds Orders: Active Orders 24 hr Category Date Time Status DME for Discharge [COMM] Stat Oth 10/25/19 22:08 Ordered - Re-Assessments/Exams Free Text/Narrative Re-Assessment/Exam: 10/25/19 22:11 This patient likely has a contusion of the arch of the foot, possibly a strain of the plantar fascia. A 4 inch Nicanor wrap was applied to the foot which provided support and he said it felt much better. He was given crutches to take some of the pressure off the foot and can recheck with podiatry next week if not improving satisfactorily. He does have an appointment with his primary provider tomorrow who can re-assess for bruising or swelling. Departure - Departure Time of Disposition: 22:23 Disposition: Home, Self-Care 01 Clinical Impression: Contusion of foot, right Qualifiers: Encounter type: initial encounter Qualified Code(s): S90.31XA - Contusion of right foot, initial encounter - Discharge Information Instructions: Contusion, [id number] Referrals: Pieter Kim MD [Primary Care Provider] - Forms: ED Department Discharge Care Plan Goals: Wrap foot for support, elevation and ice may be helpful. Increase activity as tolerated with the aid of crutches and recheck tomorrow as scheduled and possibly arrange a recheck with podiatry next week if needed. Continue your current medications. Sepsis Event Note - Evaluation Sepsis Screening Result: No Definite Risk - Focused Exam Vital Signs: Vital Signs Temp Pulse Resp BP Pulse Ox 10/25/19 21:50 97.7 F 75 20 109/72 96 Date Exam was Performed: 10/25/19 Time Exam was Performed: 23:34 - My Orders Last 24 Hours: My Active Orders 10/25/19 22:08 DME for Discharge [COMM] Stat - Assessment/Plan Last 24 Hours: My Active Orders 10/25/19 22:08 DME for Discharge [COMM] Stat
== END 2019-10-25 22:23 | disposition home or self-care (01) ==
LOC: JP.ED 21:19
DX: S90.31XA Contusion of right foot, initial encounter (principal); I10 Essential (primary) hypertension; E11.9 Type 2 diabetes mellitus without complications; F41.9 Anxiety disorder, unspecified; F17.210 Nicotine dependence, cigarettes, uncomplicated; Z88.5 Allergy status to narcotic agent; Z88.6 Allergy status to analgesic agent; Z88.8 Allergy status to other drugs, medicaments and biological substances; Z79.899 Other long term (current) drug therapy; W22.8XXA Striking against or struck by other objects, initial encounter
CPT/HCPCS: 99282; 99283

== ENCOUNTER 2020-04-28 | Emergency (ER) | payer MEDICARE, MEDICAID ==
[2020-04-28 00:11] VITALS: BP 124/77; PULSE 77
--- NOTE | 2020-04-28 00:27 | EDM.PDOC ---
ED HPI GENERAL MEDICAL PROBLEM - General Chief Complaint: Lower Extremity Injury/Pain Stated Complaint: R KNEE PAIN Time Seen by Provider: 04/28/20 00:15 Source of Information: Reports: Patient, Old Records, RN History Limitations: Reports: No Limitations - History of Present Illness INITIAL COMMENTS - FREE TEXT/NARRATIVE: 54 yo male with chronic R knee pain presents with pain that is worse than usual. No injury. Has a brace that is not working. Has a walker at home. Wants a note to be off work. Has an orthopedic doctor already. Onset: Gradual Duration: Chronic, Getting Worse Location: Reports: Lower Extremity, Right Quality: Reports: Ache, Sharp (with weight bearing) Severity: Moderate Improves with: Reports: Rest Worsens with: Reports: Movement Context: Reports: Other (See HPI) Associated Symptoms: Reports: No Other Symptoms Treatments APPEALS NURSE: Reports: Other (see below) (None) Right Knee Pain Score (Numeric/FACES): 9 - Related Data Allergies Allergy/AdvReac Type Severity Reaction Status Date / Time codeine Allergy Rash Verified 04/28/20 00:05 lithium Allergy Seizure Verified 04/28/20 00:05 zolpidem [From Ambien] Allergy Other Verified 04/28/20 00:05 naproxen AdvReac Nausea Verified 04/28/20 00:05 simvastatin AdvReac Muscle Verified 04/28/20 00:05 Aches Home Meds: Home Meds ziprasidone HCL [Geodon] 40 mg PO DAILY 01/15/14 [History] ziprasidone HCL [Geodon] 80 mg PO BEDTIME 08/06/14 [History] Acetaminophen [Tylenol Extra Strength] 500 mg PO Q4HR 02/27/17 [History] ALPRAZolam 2 mg PO QID PRN 12/13/18 [History] Cannabidiol (Cbd) Extract [Cannabis (Medical)] 10 mg INH QID PRN 07/10/19 [History] Cannabidiol (Cbd) Extract [Cannabis (Medical)] 10 mg PO BID PRN 07/10/19 [History] Cyclobenzaprine [Flexeril] 10 mg PO QID 09/08/19 [History] Gabapentin [Neurontin] 300 mg PO .AM AND NOON 09/08/19 [History] Gabapentin [Neurontin] 600 mg PO BEDTIME 09/08/19 [History] Past Medical History HEENT History: Reports: Hard of Hearing, Impaired Vision, Otitis Media Other HEENT History: wears glasses Cardiovascular History: Reports: Afib, High Cholesterol, Hypertension, SOB on Exertion, Syncope Respiratory History: Reports: Asthma, Bronchitis, Recurrent, Pneumonia, Recurrent Gastrointestinal History: Reports: Bowel Obstruction, Chronic Constipation, Chronic Diarrhea, GERD, Hepatitis, Hiatal Hernia Other Gastrointestinal History: Hepatitis A Genitourinary History: Reports: Renal Calculus, UTI, Recurrent Other Genitourinary History: kidney infections Musculoskeletal History: Reports: Arthritis, Back Pain, Chronic, Fracture, Neck Pain, Chronic Other Musculoskeletal History: chronic leg pains, bone spurs left shoulder Neurological History: Reports: Concussion, Head Trauma, Migraines, Seizure Other Neuro History: 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 Psychiatric History: Reports: Addiction, Anxiety, Bipolar, Depression, Panic Attack, Psych Hospitalization(s), Schizophrenia, Suicide Attempt, Suicidal Ideation Endocrine/Metabolic History: Reports: Diabetes, Type II, Vitamin D Deficiency, Other (See Below) Other Endocrine/Metabolic History: not Diabetic since bariatric procedure Hematologic History: Reports: B12 Deficiency, Folic Acid Dermatologic History: Reports: Other (See Below) Other Dermatologic History: teeny adverse acollor-pigmentation disorder - Infectious Disease History Infectious Disease History: Reports: Chicken Pox - Past Surgical History Head Surgeries/Procedures: Reports: None HEENT Surgical History: Reports: Eye Surgery, Oral Surgery Cardiovascular Surgical History: Reports: Other (See Below) Other Cardiovascular Surgeries/Procedures: cardioversions Respiratory Surgical History: Reports: None GI Surgical History: Reports: Bariatric Procedure, Other (See Below) Other GI Surgeries/Procedures: hiatal hernia repair Endocrine Surgical History: Reports: None Neurological Surgical History: Reports: None Musculoskeletal Surgical History: Reports: Ganglion Cyst, Hip Replacement, Shoulder Surgery, Other (See Below) Other Musculoskeletal Surgeries/Procedures:: right ankle surgery. hip surgery. left ankle surgery. left shoulder bone spurs Dermatological Surgical History: Reports: None Social & Family History - Family History Family Medical History: Noncontributory Cardiac: Reports: Bypass, CAD, [place] Musculoskeletal: Reports: Arthritis, Back pain, Chronic, Neck Pain, Chronic Neurological: Reports: Alzheimers Disease Psychiatric: Reports: Anxiety, Bipolar, Depression Oncologic: Reports: Leukemia, Lymphoma - Tobacco Use Smoking Status *Q: Current Every Day Smoker Years of Tobacco use: 40 Packs/Tins Daily: 1 - Caffeine Use Caffeine Use: Reports: Energy Drinks, Soda - Recreational Drug Use Recreational Drug Use: No Recreational Drug Type: Reports: Marijuana/Hashish Review of Systems - Review of Systems Review Of Systems: See Below Constitutional: Reports: No Symptoms Musculoskeletal: Reports: Joint Pain (R knee). Denies: Joint Swelling Skin: Reports: No Symptoms Neurological: Reports: No Symptoms ED EXAM, GENERAL - Physical Exam Exam: See Below Exam Limited By: No Limitations General Appearance: Alert, WD/WN, No Apparent Distress Extremities: Normal Inspection, Normal Range of Motion, No Pedal Edema, Other (no ligamentous laxity, no effusion, no increased warmth.). No: Non-Tender, Pedal Edema Neurological: Alert, Oriented, CN II-XII Intact, Normal Cognition, No Motor/Sensory Deficits Psychiatric: Normal Affect, Normal Mood Skin Exam: Warm, Dry, Intact, Normal Color, No Rash Course - Vital Signs Last Recorded V/S: Last Vital Signs Temp 35.9 C L 04/28/20 00:17 Pulse 77 04/28/20 00:17 Resp 16 04/28/20 00:17 BP 124/77 04/28/20 00:17 Pulse Ox 98 04/28/20 00:17 Departure - Departure Time of Disposition: 00:27 Disposition: Home, Self-Care 01 Condition: Good Clinical Impression: Chronic knee pain Qualifiers: Laterality: right Qualified Code(s): M25.561 - Pain in right knee; G89.29 - Other chronic pain - Discharge Information *PRESCRIPTION DRUG MONITORING PROGRAM REVIEWED*: No *COPY OF PRESCRIPTION DRUG MONITORING REPORT IN PATIENT ALEX: No Instructions: Chronic Knee Pain, Adult, [id number] Referrals: Pieter Kim MD [Primary Care Provider] - Additional Instructions: Use your walker to reduce the strain on your knee. F/U with your orthopedic doctor for definitive care. Acetaminophen up to 1000 mg every 6 hrs for pain relief. Sepsis Event Note (ED) - Evaluation Sepsis Screening Result: No Definite Risk - Focused Exam Vital Signs: Vital Signs Temp Pulse Resp BP Pulse Ox 04/28/20 00:17 35.9 C L 77 16 124/77 98 04/28/20 00:10 35.9 C L 77 16 124/77 98
== END 2020-04-28 00:35 | disposition home or self-care (01) ==
LOC: JP.ED
DX: G89.29 Other chronic pain (principal); M25.561 Pain in right knee; I48.91 Unspecified atrial fibrillation; I10 Essential (primary) hypertension; F31.9 Bipolar disorder, unspecified; E11.9 Type 2 diabetes mellitus without complications; J45.909 Unspecified asthma, uncomplicated; Z88.5 Allergy status to narcotic agent; Z88.8 Allergy status to other drugs, medicaments and biological substances; Z79.899 Other long term (current) drug therapy; F17.210 Nicotine dependence, cigarettes, uncomplicated
CPT/HCPCS: 99283

== ENCOUNTER 2020-06-01 23:30 | Emergency (ER) | payer MEDICARE, MEDICAID ==
[2020-06-01 23:58] VITALS: BP 122/81; PULSE 74
[2020-06-01] MEDS ORDERED: Ketorolac 60 MG/2 ML SDV IM ONE (23:59)
[2020-06-02] MEDS ORDERED: Acetaminophen/oxyCODONE 325-5 MG Tab PO ONE
--- NOTE | 2020-06-02 00:10 | EDM.PDOC ---
ED HPI GENERAL MEDICAL PROBLEM - General Chief Complaint: Skin Complaint Stated Complaint: STAB IN BACK WITH BOLT Time Seen by Provider: 06/01/20 23:59 Source of Information: Reports: Patient History Limitations: Reports: No Limitations - History of Present Illness INITIAL COMMENTS - FREE TEXT/NARRATIVE: pt was placing a stove in the pickup and it slipped and pushed him backward into some bults on his boat. He did slam fairly hard. Onset: Today, Sudden Duration: Hour(s): Location: Reports: Chest, Back, Other (pt has 3 myers on his back where he hit. He does hurt when he takes a deep breath. ) Associated Symptoms: Reports: Other (pt does not feel sob. ) Middle Back Pain Score (Numeric/FACES): 8 - Related Data Allergies Allergy/AdvReac Type Severity Reaction Status Date / Time codeine Allergy Rash Verified 06/01/20 23:47 lithium Allergy Seizure Verified 06/01/20 23:47 zolpidem [From Ambien] Allergy Other Verified 06/01/20 23:47 naproxen AdvReac Nausea Verified 06/01/20 23:47 simvastatin AdvReac Muscle Verified 06/01/20 23:47 Aches Home Meds: Home Meds ziprasidone HCL [Geodon] 40 mg PO DAILY 01/15/14 [History] ziprasidone HCL [Geodon] 80 mg PO BEDTIME 08/06/14 [History] Acetaminophen [Tylenol Extra Strength] 500 mg PO Q4HR 02/27/17 [History] ALPRAZolam 2 mg PO QID PRN 12/13/18 [History] Cyclobenzaprine [Flexeril] 10 mg PO QID 09/08/19 [History] Gabapentin [Neurontin] 300 mg PO .AM AND NOON 09/08/19 [History] Gabapentin [Neurontin] 600 mg PO BEDTIME 09/08/19 [History] Celecoxib 200 mg PO DAILY 06/01/20 [History] Past Medical History HEENT History: Reports: Hard of Hearing, Impaired Vision, Otitis Media Other HEENT History: wears glasses Cardiovascular History: Reports: Afib, High Cholesterol, Hypertension, SOB on Exertion, Syncope Respiratory History: Reports: Asthma, Bronchitis, Recurrent, Pneumonia, Recurrent Gastrointestinal History: Reports: Bowel Obstruction, Chronic Constipation, Chronic Diarrhea, GERD, Hepatitis, Hiatal Hernia Other Gastrointestinal History: Hepatitis A Genitourinary History: Reports: Renal Calculus, UTI, Recurrent Other Genitourinary History: kidney infections Musculoskeletal History: Reports: Arthritis, Back Pain, Chronic, Fracture, Neck Pain, Chronic Other Musculoskeletal History: chronic leg pains, bone spurs left shoulder Neurological History: Reports: Concussion, Head Trauma, Migraines, Seizure Other Neuro History: 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 Psychiatric History: Reports: Addiction, Anxiety, Bipolar, Depression, Panic Attack, Psych Hospitalization(s), Schizophrenia, Suicide Attempt, Suicidal Ideation Endocrine/Metabolic History: Reports: Diabetes, Type II, Vitamin D Deficiency, Other (See Below) Other Endocrine/Metabolic History: not Diabetic since bariatric procedure Hematologic History: Reports: B12 Deficiency, Folic Acid Dermatologic History: Reports: Other (See Below) Other Dermatologic History: teeny adverse acollor-pigmentation disorder - Infectious Disease History Infectious Disease History: Reports: Chicken Pox - Past Surgical History Head Surgeries/Procedures: Reports: None HEENT Surgical History: Reports: Eye Surgery, Oral Surgery Cardiovascular Surgical History: Reports: Other (See Below) Other Cardiovascular Surgeries/Procedures: cardioversions Respiratory Surgical History: Reports: None GI Surgical History: Reports: Bariatric Procedure, Other (See Below) Other GI Surgeries/Procedures: hiatal hernia repair Endocrine Surgical History: Reports: None Neurological Surgical History: Reports: None Musculoskeletal Surgical History: Reports: Ganglion Cyst, Hip Replacement, Shoulder Surgery, Other (See Below) Other Musculoskeletal Surgeries/Procedures:: right ankle surgery. hip surgery. left ankle surgery. left shoulder bone spurs Dermatological Surgical History: Reports: None Social & Family History - Family History Family Medical History: Noncontributory Cardiac: Reports: Bypass, CAD, [place] Musculoskeletal: Reports: Arthritis, Back pain, Chronic, Neck Pain, Chronic Neurological: Reports: Alzheimers Disease Psychiatric: Reports: Anxiety, Bipolar, Depression Oncologic: Reports: Leukemia, Lymphoma - Tobacco Use Smoking Status *Q: Current Every Day Smoker Years of Tobacco use: 40 Packs/Tins Daily: 1.5 - Caffeine Use Caffeine Use: Reports: Coffee, Energy Drinks, Soda, Tea - Recreational Drug Use Recreational Drug Use: No ED ROS GENERAL - Review of Systems Review Of Systems: See Below Constitutional: Reports: No Symptoms HEENT: Reports: No Symptoms Respiratory: Reports: Other (pain with deep breathing. ) Cardiovascular: Reports: Chest Pain Endocrine: Reports: No Symptoms GI/Abdominal: Reports: No Symptoms : Reports: No Symptoms Musculoskeletal: Reports: Muscle Pain Skin: Reports: No Symptoms ED EXAM, SKIN/RASH Exam: See Below Text/Narrative:: pt arrived with pain in his mid back area where he was hit with 3 bolts on his boat. He was trying to load a stove and it slipped and he was pushed backward unto the bolts. He does hurt with deep breathing. Exam Limited By: No Limitations General Appearance: Alert, Anxious, Moderate Distress Ears: Normal TMs Nose: Normal Inspection Throat/Mouth: Normal Inspection Head: Atraumatic Neck: Normal Inspection Respiratory/Chest: Other (he has 3 myers on his back where the bolts struck the area. He has abrasions at this site. He has good breath sounds bilaterally. ) Cardiovascular: Regular Rate, Rhythm GI/Abdominal: Soft, Non-Tender (Male) Exam: Deferred Rectal (Males) Exam: Deferred Back Exam: Normal Inspection Extremities: Normal Inspection Neurological: Alert, Oriented, Normal Cognition Psychiatric: Anxious Course - Vital Signs Last Recorded V/S: Last Vital Signs Temp 36.7 C 06/01/20 23:51 Pulse 74 06/01/20 23:51 Resp 14 06/01/20 23:51 BP 122/81 06/01/20 23:51 Pulse Ox 97 06/01/20 23:51 - Orders/Labs/Meds Meds: Medications Discontinued Medications Generic Name Dose Route Start Last Admin Trade Name Alberto PRN Reason Stop Dose Admin Ketorolac Tromethamine 60 mg 06/01/20 23:59 06/02/20 00:08 Toradol IM 06/02/20 00:00 60 mg ONETIME ONE Administration Oxycodone/Acetaminophen 1 tab 06/02/20 00:00 06/02/20 00:08 Percocet 325-5 Mg PO 06/02/20 00:01 1 tab ONETIME ONE Administration - Re-Assessments/Exams Free Text/Narrative Re-Assessment/Exam: 06/02/20 00:40 pt is current with tetanus--2011. He had a chest xray which looked good. His t spine showed good alignment. he was given torodol 60mg im and percocet 5/325. Departure - Departure Time of Disposition: 00:31 Disposition: Home, Self-Care 01 Condition: Fair Clinical Impression: Contusion of back - Discharge Information Instructions: Contusion, [id number] Referrals: Pieter Kim MD [Primary Care Provider] - Forms: ED Department Discharge Care Plan Goals: cool pack to the area, ultram 50 m q6h prn for pain, encourage deep breathing. Sepsis Event Note (ED) - Evaluation Sepsis Screening Result: No Definite Risk
--- NOTE | 2020-06-03 09:47 | CR ---
CHEST: 2 view CLINICAL HISTORY:Pain COMPARISON:2019 FINDINGS: The heart size, pulmonary vascularity and hilar structures are normal. No infiltrate effusion or pneumothorax is seen. IMPRESSION: No acute cardiopulmonary process.
== END 2020-06-02 00:40 | disposition home or self-care (01) ==
LOC: JP.ED 23:30
DX: S20.229A Contusion of unspecified back wall of thorax, initial encounter (principal); I10 Essential (primary) hypertension; E78.00 Pure hypercholesterolemia, unspecified; I48.91 Unspecified atrial fibrillation; E11.9 Type 2 diabetes mellitus without complications; F41.0 Panic disorder [episodic paroxysmal anxiety]; F31.9 Bipolar disorder, unspecified; F17.210 Nicotine dependence, cigarettes, uncomplicated; Z88.5 Allergy status to narcotic agent; Z88.8 Allergy status to other drugs, medicaments and biological substances; Z79.899 Other long term (current) drug therapy; W01.198A Fall on same level from slipping, tripping and stumbling with subsequent striking against other object, initial encounter
CPT/HCPCS: 71046; 96372; 99283; A9270; J1885

== ENCOUNTER 2020-11-06 22:04 | Emergency (ER) | payer MEDICARE, MEDICAID ==
[2020-11-06 22:08] VITALS: BP 126/78; PULSE 80
--- NOTE | 2020-11-06 22:39 | EDM.PDOC ---
ED HPI GENERAL MEDICAL PROBLEM - General Chief Complaint: Cardiovascular Problem Stated Complaint: MEDICAL [facility]IA [facility] Time Seen by Provider: 11/06/20 22:28 Source of Information: Reports: Patient, RN Notes Reviewed History Limitations: Reports: No Limitations - History of Present Illness INITIAL COMMENTS - FREE TEXT/NARRATIVE: 55-year-old gentleman presents emergency department day complaint of atrial fibrillation, he has known history of atrial fibrillation has been going in and out of atrial fibrillation for several years earlier today he had a bout that was quite fast EMS services were called found that he was in atrial fibrillation upon arrival elected to transport him to the emergency department for further evaluation however he converted to a spontaneous sinus rhythm by the time he arrived. At this time he has no complaints - Related Data Allergies Allergy/AdvReac Type Severity Reaction Status Date / Time codeine Allergy Rash Verified 11/06/20 22:17 lithium Allergy Seizure Verified 11/06/20 22:17 zolpidem [From Ambien] Allergy Other Verified 11/06/20 22:17 naproxen AdvReac Nausea Verified 11/06/20 22:17 simvastatin AdvReac Muscle Verified 11/06/20 22:17 Aches Home Meds: Home Meds ziprasidone HCL [Geodon] 40 mg PO DAILY 01/15/14 [History] ziprasidone HCL [Geodon] 80 mg PO BEDTIME 08/06/14 [History] Acetaminophen [Tylenol Extra Strength] 500 mg PO Q4HR 02/27/17 [History] ALPRAZolam 2 mg PO QID PRN 12/13/18 [History] Cyclobenzaprine [Flexeril] 10 mg PO QID 09/08/19 [History] Gabapentin [Neurontin] 300 mg PO .AM AND NOON 09/08/19 [History] Gabapentin [Neurontin] 600 mg PO BEDTIME 09/08/19 [History] Escitalopram [Lexapro] 10 mg PO DAILY 11/06/20 [History] Tolterodine Tartrate [Detrol LA] 2 mg PO BID 11/06/20 [History] buPROPion HCL [Bupropion HCl Sr] 1 tab PO BID 11/06/20 [History] cloNIDine HCL [Clonidine HCl] 0.1 mg PO BID PRN 11/06/20 [History] Past Medical History HEENT History: Reports: Hard of Hearing, Impaired Vision, Otitis Media Other HEENT History: wears glasses Cardiovascular History: Reports: Afib, High Cholesterol, Hypertension, SOB on Exertion, Syncope Respiratory History: Reports: Asthma, Bronchitis, Recurrent, Pneumonia, Recurrent Gastrointestinal History: Reports: Bowel Obstruction, Chronic Constipation, Chronic Diarrhea, GERD, Hepatitis, Hiatal Hernia Other Gastrointestinal History: Hepatitis A Genitourinary History: Reports: Renal Calculus, UTI, Recurrent Other Genitourinary History: kidney infections Musculoskeletal History: Reports: Arthritis, Back Pain, Chronic, Fracture, Neck Pain, Chronic Other Musculoskeletal History: chronic leg pains, bone spurs left shoulder Neurological History: Reports: Concussion, Head Trauma, Migraines, Seizure Other Neuro History: 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 Psychiatric History: Reports: Addiction, Anxiety, Bipolar, Depression, Panic Attack, Psych Hospitalization(s), Schizophrenia, Suicide Attempt, Suicidal Ideation Endocrine/Metabolic History: Reports: Diabetes, Type II, Vitamin D Deficiency, Other (See Below) Other Endocrine/Metabolic History: not Diabetic since bariatric procedure Hematologic History: Reports: B12 Deficiency, Folic Acid Dermatologic History: Reports: Other (See Below) Other Dermatologic History: teeny adverse acollor-pigmentation disorder - Infectious Disease History Infectious Disease History: Reports: Chicken Pox - Past Surgical History Head Surgeries/Procedures: Reports: None HEENT Surgical History: Reports: Eye Surgery, Oral Surgery Other HEENT Surgeries/Procedures: right eye surgery Cardiovascular Surgical History: Reports: Other (See Below) Other Cardiovascular Surgeries/Procedures: cardioversions Respiratory Surgical History: Reports: None GI Surgical History: Reports: Bariatric Procedure, Other (See Below) Other GI Surgeries/Procedures: hiatal hernia repair Male Surgical History: Reports: None Endocrine Surgical History: Reports: None Neurological Surgical History: Reports: None Musculoskeletal Surgical History: Reports: Ganglion Cyst, Hip Replacement, Shoulder Surgery, Other (See Below) Other Musculoskeletal Surgeries/Procedures:: right ankle surgery. hip surgery. left ankle surgery. left shoulder bone spurs Dermatological Surgical History: Reports: None Social & Family History - Family History Family Medical History: No Pertinent Family History Cardiac: Reports: Bypass, CAD, [place] Musculoskeletal: Reports: Arthritis, Back pain, Chronic, Neck Pain, Chronic Neurological: Reports: Alzheimers Disease Psychiatric: Reports: Anxiety, Bipolar, Depression Oncologic: Reports: Leukemia, Lymphoma - Tobacco Use Tobacco Use Status *Q: Current Every Day Tobacco User Years of Tobacco use: 40 Packs/Tins Daily: 1.5 - Caffeine Use Caffeine Use: Reports: Coffee, Energy Drinks, Soda, Tea - Recreational Drug Use Recreational Drug Use: Yes Recreational Drug Type: Reports: Marijuana/Hashish Recreational Drug Use Frequency: Daily ED ROS GENERAL - Review of Systems Review Of Systems: See Below Constitutional: Reports: No Symptoms HEENT: Reports: No Symptoms Respiratory: Reports: No Symptoms Cardiovascular: Reports: No Symptoms GI/Abdominal: Reports: No Symptoms ED EXAM, GENERAL - Physical Exam Exam: See Below Exam Limited By: No Limitations General Appearance: Alert, WD/WN, No Apparent Distress Respiratory/Chest: No Respiratory Distress, Lungs Clear, Normal Breath Sounds, No Accessory Muscle Use, Chest Non-Tender Cardiovascular: Regular Rate, Rhythm, No Murmur Course - Vital Signs Last Recorded V/S: Last Vital Signs Temp 96.9 F 11/06/20 22:26 Pulse 80 11/06/20 22:26 Resp 16 11/06/20 22:26 BP 126/78 11/06/20 22:26 Pulse Ox 96 11/06/20 22:26 Departure - Departure Time of Disposition: 22:38 Disposition: Home, Self-Care 01 Condition: Fair Clinical Impression: Paroxysmal atrial fibrillation Instructions: Atrial Fibrillation, [id number] Referrals: PCP,None [Primary Care Provider] - Additional Instructions: Continue with your regular medications please followup with your primary care provider in 3-5 days for further evaluation which may include consultation with cardiology, please call return to the emergency department with worsening of symptoms., Sepsis Event Note (ED) - Evaluation Sepsis Screening Result: No Definite Risk - Focused Exam Vital Signs: Vital Signs Temp Pulse Resp BP Pulse Ox 11/06/20 22:26 96.9 F 80 16 126/78 96 11/06/20 22:07 96.9 F 80 16 126/78 96 - Assessment/Plan Plan: Assessment Acuity = acute Site and laterality = paroxysmal atrial fibrillation Etiology = unknown Manifestations = none Location of injury = Home Lab values = none Plan I did talk to about his atrial fibrillation his CHADS2 score is between 1 and 2 which puts him at risk he is not taking any anticoagulation at this time recommended that he starting an aspirin asked him to follow-up with his primary care and and possibly consultation cardiology possibly considering pill in pocket approach or further anticoagulation as needed or possibly he is a candidate for an ablation This note was dictated using [employer] voice recognition software please call with any questions on syntax or grammar.
== END 2020-11-06 22:55 | disposition home or self-care (01) ==
LOC: JP.ED 22:04
DX: I48.0 Paroxysmal atrial fibrillation (principal); I10 Essential (primary) hypertension; J45.909 Unspecified asthma, uncomplicated; E11.9 Type 2 diabetes mellitus without complications; Z72.0 Tobacco use; Z88.5 Allergy status to narcotic agent; Z88.8 Allergy status to other drugs, medicaments and biological substances; Z79.899 Other long term (current) drug therapy
CPT/HCPCS: 99283; 99284

== ENCOUNTER 2020-12-21 22:19 | Emergency (ER) | payer MEDICARE, MEDICAID ==
[2020-12-21 22:34] VITALS: BP 112/71; PULSE 75
--- NOTE | 2020-12-21 23:16 | EDM.PDOC ---
ED HPI GENERAL MEDICAL PROBLEM - General Chief Complaint: Abdominal Pain Stated Complaint: ABDOMINAL PAIN Time Seen by Provider: 12/21/20 22:40 Source of Information: Reports: Patient History Limitations: Reports: No Limitations - History of Present Illness INITIAL COMMENTS - FREE TEXT/NARRATIVE: 55-year-old male with chronic constipation problems, presents with no bowel movement for the past 5 to 6 days. He has tried 2 enemas without success, he has been on daily MiraLAX for years. He has persistent lower abdominal fullness and pain especially on the left side. He also feels nausea when eating. No fevers or chills, no urinary symptoms. Onset: Gradual Duration: Day(s): (6 days) Location: Reports: Abdomen (Mostly left lower quadrant) Associated Symptoms: Reports: Other (Nausea but no vomiting) Treatments SUPPORT SERVICES MANAGER: Reports: Other (see below) (Has tried two enemas) Abdomen Pain Score (Numeric/FACES): 6 - Related Data Allergies Allergy/AdvReac Type Severity Reaction Status Date / Time codeine Allergy Rash Verified 12/21/20 22:37 lithium Allergy Seizure Verified 12/21/20 22:37 zolpidem [From Ambien] Allergy Other Verified 12/21/20 22:37 naproxen AdvReac Nausea Verified 12/21/20 22:37 simvastatin AdvReac Muscle Verified 12/21/20 22:37 Aches Home Meds: Home Meds ziprasidone HCL [Geodon] 40 mg PO DAILY 01/15/14 [History] ziprasidone HCL [Geodon] 80 mg PO BEDTIME 08/06/14 [History] Acetaminophen [Tylenol Extra Strength] 500 mg PO Q4HR 02/27/17 [History] ALPRAZolam 2 mg PO QID PRN 12/13/18 [History] Cyclobenzaprine [Flexeril] 10 mg PO QID 09/08/19 [History] Gabapentin [Neurontin] 300 mg PO .AM AND NOON 09/08/19 [History] Gabapentin [Neurontin] 600 mg PO BEDTIME 09/08/19 [History] Escitalopram [Lexapro] 10 mg PO DAILY 11/06/20 [History] Tolterodine Tartrate [Detrol LA] 2 mg PO BID 11/06/20 [History] buPROPion HCL [Bupropion HCl Sr] 1 tab PO BID 11/06/20 [History] cloNIDine HCL [Clonidine HCl] 0.1 mg PO BID PRN 11/06/20 [History] Past Medical History HEENT History: Reports: Hard of Hearing, Impaired Vision, Otitis Media Other HEENT History: wears glasses Cardiovascular History: Reports: Afib, High Cholesterol, Hypertension, SOB on Exertion, Syncope Respiratory History: Reports: Asthma, Bronchitis, Recurrent, Pneumonia, Recurrent Gastrointestinal History: Reports: Bowel Obstruction, Chronic Constipation, Chronic Diarrhea, GERD, Hepatitis, Hiatal Hernia Other Gastrointestinal History: Hepatitis A Genitourinary History: Reports: Renal Calculus, UTI, Recurrent Other Genitourinary History: kidney infections Musculoskeletal History: Reports: Arthritis, Back Pain, Chronic, Fracture, Neck Pain, Chronic Other Musculoskeletal History: chronic leg pains, bone spurs left shoulder Neurological History: Reports: Concussion, Head Trauma, Migraines, Seizure Other Neuro History: 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 Psychiatric History: Reports: Addiction, Anxiety, Bipolar, Depression, Panic Att ack, Psych Hospitalization(s), Schizophrenia, Suicide Attempt, Suicidal Ideation Endocrine/Metabolic History: Reports: Diabetes, Type II, Vitamin D Deficiency, Other (See Below) Other Endocrine/Metabolic History: not Diabetic since bariatric procedure Hematologic History: Reports: B12 Deficiency, Folic Acid Dermatologic History: Reports: Other (See Below) Other Dermatologic History: teeny adverse acollor-pigmentation disorder - Infectious Disease History Infectious Disease History: Reports: Chicken Pox, Measles - Past Surgical History Head Surgeries/Procedures: Reports: None HEENT Surgical History: Reports: Eye Surgery, Oral Surgery Other HEENT Surgeries/Procedures: right eye surgery Cardiovascular Surgical History: Reports: Other (See Below) Other Cardiovascular Surgeries/Procedures: cardioversions Respiratory Surgical History: Reports: None GI Surgical History: Reports: Bariatric Procedure, Other (See Below) Other GI Surgeries/Procedures: hiatal hernia repair Male Surgical History: Reports: None Endocrine Surgical History: Reports: None Neurological Surgical History: Reports: None Musculoskeletal Surgical History: Reports: Ganglion Cyst, Hip Replacement, Shoulder Surgery, Other (See Below) Other Musculoskeletal Surgeries/Procedures:: right ankle surgery. hip surgery. left ankle surgery. left shoulder bone spurs Dermatological Surgical History: Reports: None Social & Family History - Family History Family Medical History: No Pertinent Family History Cardiac: Reports: Bypass, CAD, [place] Musculoskeletal: Reports: Arthritis, Back pain, Chronic, Neck Pain, Chronic Neurological: Reports: Alzheimers Disease Psychiatric: Reports: Anxiety, Bipolar, Depression Oncologic: Reports: Leukemia, Lymphoma - Tobacco Use Tobacco Use Status *Q: Current Every Day Tobacco User Years of Tobacco use: 37 Packs/Tins Daily: 1.5 - Caffeine Use Caffeine Use: Reports: Coffee, Soda - Recreational Drug Use Recreational Drug Type: Reports: Marijuana/Hashish ED ROS GENERAL - Review of Systems Review Of Systems: See Below Constitutional: Reports: Malaise. Denies: Fever, Chills HEENT: Reports: No Symptoms Respiratory: Denies: Shortness of Breath Cardiovascular: Denies: Chest Pain GI/Abdominal: Reports: Abdominal Pain, Constipation, Nausea. Denies: Vomiting Skin: Reports: No Symptoms Neurological: Denies: Headache ED EXAM, GI/ABD - Physical Exam Exam: See Below Exam Limited By: No Limitations General Appearance: Alert, No Apparent Distress Eyes: Bilateral: Normal Appearance (No jaundice) Head: Atraumatic Respiratory/Chest: No Respiratory Distress, Lungs Clear Cardiovascular: Regular Rate, Rhythm GI/Abdominal Exam: Normal Bowel Sounds, Soft, Tender (Patient is fairly tender across the lower abdomen especially on the left side with a small amount of guarding) (Male) Exam: No Hernia Rectal (Males) Exam: Normal Exam, Normal Rectal Tone, Other (Rectal exam shows no stool in the rectum) Neurological: Alert, Oriented Course - Vital Signs Last Recorded V/S: Last Vital Signs Temp 97.4 F 12/21/20 22:39 Pulse 75 12/21/20 22:39 Resp 16 12/21/20 22:39 BP 112/71 12/21/20 22:39 Pulse Ox 100 12/21/20 22:39 - Orders/Labs/Meds Labs: Laboratory Tests 12/21/20 12/21/20 Range/Units 23:00 23:00 WBC 7.6 (4.5-11.0) K/uL RBC 4.51 (4.30-5.90) M/uL Hgb 12.9 (12.0-15.0) g/dL Hct 39.6 L (40.0-54.0) % MCV 88 (80-98) fL MCH 29 (27-31) pg MCHC 33 (32-36) % Plt Count 202 (150-400) K/uL Neut % (Auto) 52 (36-66) % Lymph % (Auto) 36 (24-44) % [place] % (Auto) 9 H (2-6) % Eos % (Auto) 2 (2-4) % Baso % (Auto) 0 (0-1) % Sodium 140 (140-148) mmol/L Potassium 4.1 (3.6-5.2) mmol/L Chloride 106 (100-108) mmol/L Carbon Dioxide 25 (21-32) mmol/L Anion Gap 8.8 (5.0-14.0) mmol/L BUN 8 (7-18) mg/dL Creatinine 0.9 (0.8-1.3) mg/dL Est Cr Clr Drug Dosing 104.19 mL/min Estimated GFR (MDRD) > 60 (>60) Glucose 89 (74-106) mg/dL Calcium 8.6 (8.5-10.1) mg/dL Meds: Medications Discontinued Medications Generic Name Dose Route Start Last Admin Trade Name Alberto PRN Reason Stop Dose Admin Magnesium Citrate 296 ml 12/22/20 00:07 12/22/20 00:14 Citrate Of Magnesia PO 12/22/20 00:08 296 ml ONETIME ONE Administration - Re-Assessments/Exams Free Text/Narrative Re-Assessment/Exam: 12/21/20 23:16 I am concerned this patient may have diverticulitis and not constipation. CBC and BMP are obtained, and we will obtain a CT of the abdomen and pelvis without contrast. 12/22/20 00:04 Labs are normal, CT the abdomen and pelvis revealed as follows IMPRESSION: 1. Distention of the colon with stool and gas, most likely representing constipation. 2. No urinary tract stones or hydronephrosis. 3. Nonacute additional findings as detailed above. Patient was discharged with a bottle of mag citrate and recheck in 2 to 3 days if not improving satisfactorily. Departure - Departure Time of Disposition: 00:14 Disposition: Home, Self-Care 01 Clinical Impression: Constipation Qualifiers: Constipation type: slow transit constipation Qualified Code(s): K59.01 - Slow transit constipation - Discharge Information Instructions: Constipation, Adult, [id number] Referrals: Pieter Kim MD [Primary Care Provider] - Forms: ED Department Discharge Care Plan Goals: Try bottle of mag citrate as recommended, recheck on Wednesday or Wednesday if not improving. Return to the emergency room at any time if worsening such as fever or increased pain. Sepsis Event Note (ED) - Evaluation Sepsis Screening Result: No Definite Risk - Focused Exam Vital Signs: Vital Signs Temp Pulse Resp BP Pulse Ox 12/21/20 22:39 97.4 F 75 16 112/71 100 12/21/20 22:33 97.4 F 75 16 112/71 100
--- NOTE | 2020-12-21 23:58 | CRLCT ---
INDICATION: abdominal pain hx gastric bypass CT ABDOMEN AND PELVIS WITHOUT CONTRAST TECHNIQUE: Multidetector CT imaging was performed through the abdomen and pelvis without intravenous contrast administration. Coronal and sagittal reconstructions were generated. COMPARISON: 12/13/2018 CT abdomen and pelvis. FINDINGS: Lower chest: Minimal basilar lung atelectasis. Liver: Within normal limits. Gallbladder and bile ducts: No gallbladder wall thickening or calcified gallstones. No biliary dilation identified. Pancreas: Unremarkable. Spleen: Normal. Adrenals: No nodules or masses. Kidneys, ureters, and urinary bladder: No urinary tract stones or hydronephrosis. Grossly unchanged small cortical hypodensities in both kidneys likely representing tiny cysts. Unchanged borderline wall thickening of the urinary bladder. Gastrointestinal tract: Postoperative changes of [id number] gastric bypass, as before. Normal caliber small bowel without definite obstruction or wall thickening. The appendix is normal. There is a large amount of stool in the proximal colon with prominent gaseous distension elsewhere in the colon to the level of the sigmoid, without evidence of an obstructing lesion. The pattern most likely reflects constipation. Vascular structures: Normal caliber abdominal aorta. Minimal aortoiliac atherosclerotic calcifications. Peritoneum: No free air, abscess, or significant free fluid. Lymph nodes: No pathologically enlarged nodes identified. Reproductive organs: Mild prostatomegaly. Bones: Mild spinal degenerative changes. Interval left hip replacement. IMPRESSION: 1. Distention of the colon with stool and gas, most likely representing constipation. 2. No urinary tract stones or hydronephrosis. 3. Nonacute additional findings as detailed above. PALOMO YU MD [facility] Dictated by Enrike Yu MD @ 12/21/2020 11:56:36 PM Dictated by: Enrike Yu MD @ 12/21/2020 23:57:18 (Electronically Signed)
[2020-12-22] MEDS ORDERED: Magnesium Citrate Solution 296 ML Bottle PO ONE (00:07)
== END 2020-12-22 00:15 | disposition home or self-care (01) ==
LOC: JP.ED 22:19
DX: K59.01 Slow transit constipation (principal); I48.91 Unspecified atrial fibrillation; I10 Essential (primary) hypertension; J45.909 Unspecified asthma, uncomplicated; E11.9 Type 2 diabetes mellitus without complications; Z72.0 Tobacco use; Z88.5 Allergy status to narcotic agent; Z88.8 Allergy status to other drugs, medicaments and biological substances; Z79.899 Other long term (current) drug therapy
CPT/HCPCS: 36415; 74176; 80048; 85025; 99284; A9270; 99283

== ENCOUNTER 2021-02-07 21:53 | Emergency (ER) | payer MEDICARE, MEDICAID ==
[2021-02-07 22:17] VITALS: BP 127/72; PULSE 88
--- NOTE | 2021-02-07 22:23 | EDM.PDOC ---
ED HPI GENERAL MEDICAL PROBLEM - General Chief Complaint: Lower Extremity Injury/Pain Stated Complaint: POSSIBLE BROKEN TOE/FOOT (LEFT) Time Seen by Provider: 02/07/21 22:05 Source of Information: Reports: Patient History Limitations: Reports: No Limitations - History of Present Illness INITIAL COMMENTS - FREE TEXT/NARRATIVE: Dez is a 55-year-old male presenting to the ED for evaluation of left small toe pain, discoloration, and swelling. The patient was in his usual state of health when he was walking around his bed catching the right fifth toe on the bed frame causing it to deform 90 degrees laterally. The patient reduced the deformity on his own and ice and elevated the foot after it occurred. It does appear that he has an avulsion laceration on the pad of the toe, however, he does not recall any bleeding from the site. Today he was on his feet for 12 hours at work and now has pain going up the lateral aspect of the left foot. The toe is swollen, ecchymotic, and very tender. - Related Data Allergies Allergy/AdvReac Type Severity Reaction Status Date / Time codeine Allergy Rash Verified 02/07/21 22:08 lithium Allergy Seizure Verified 02/07/21 22:08 zolpidem [From Ambien] Allergy Other Verified 02/07/21 22:08 naproxen AdvReac Nausea Verified 02/07/21 22:08 simvastatin AdvReac Muscle Verified 02/07/21 22:08 Aches Home Meds: Home Meds ziprasidone HCL [Geodon] 40 mg PO DAILY 01/15/14 [History] ziprasidone HCL [Geodon] 80 mg PO BEDTIME 08/06/14 [History] Acetaminophen [Tylenol Extra Strength] 500 mg PO Q4HR 02/27/17 [History] ALPRAZolam 2 mg PO QID PRN 12/13/18 [History] Cyclobenzaprine [Flexeril] 10 mg PO QID 09/08/19 [History] Gabapentin [Neurontin] 300 mg PO .AM AND NOON 09/08/19 [History] Gabapentin [Neurontin] 600 mg PO BEDTIME 09/08/19 [History] Escitalopram [Lexapro] 10 mg PO DAILY 11/06/20 [History] Tolterodine Tartrate [Detrol LA] 2 mg PO BID 11/06/20 [History] buPROPion HCL [Bupropion HCl Sr] 1 tab PO BID 11/06/20 [History] cloNIDine HCL [Clonidine HCl] 0.1 mg PO BID PRN 11/06/20 [History] Past Medical History HEENT History: Reports: Hard of Hearing, Impaired Vision, Otitis Media Other HEENT History: wears glasses Cardiovascular History: Reports: Afib, High Cholesterol, Hypertension, SOB on Exertion, Syncope Respiratory History: Reports: Asthma, Bronchitis, Recurrent, Pneumonia, Recurrent Gastrointestinal History: Reports: Bowel Obstruction, Chronic Constipation, Chronic Diarrhea, GERD, Hepatitis, Hiatal Hernia Other Gastrointestinal History: Hepatitis A Genitourinary History: Reports: Renal Calculus, UTI, Recurrent Other Genitourinary History: kidney infections Musculoskeletal History: Reports: Arthritis, Back Pain, Chronic, Fracture, Neck Pain, Chronic Other Musculoskeletal History: chronic leg pains, bone spurs left shoulder Neurological History: Reports: Concussion, Head Trauma, Migraines, Seizure Other Neuro History: 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 Psychiatric History: Reports: Addiction, Anxiety, Bipolar, Depression, Panic Attack, Psych Hospitalization(s), Schizophrenia, Suicide Attempt, Suicidal Ideation Endocrine/Metabolic History: Reports: Diabetes, Type II, Vitamin D Deficiency, Other (See Below) Other Endocrine/Metabolic History: not Diabetic since bariatric procedure Hematologic History: Reports: B12 Deficiency, Folic Acid Dermatologic History: Reports: Other (See Below) Other Dermatologic History: teeny adverse acollor-pigmentation disorder - Infectious Disease History Infectious Disease History: Reports: Chicken Pox, Measles - Past Surgical History Head Surgeries/Procedures: Reports: None HEENT Surgical History: Reports: Eye Surgery, Oral Surgery Other HEENT Surgeries/Procedures: right eye surgery Cardiovascular Surgical History: Reports: Other (See Below) Other Cardiovascular Surgeries/Procedures: cardioversions Respiratory Surgical History: Reports: None GI Surgical History: Reports: Bariatric Procedure, Other (See Below) Other GI Surgeries/Procedures: hiatal hernia repair Male Surgical History: Reports: None Endocrine Surgical History: Reports: None Neurological Surgical History: Reports: None Musculoskeletal Surgical History: Reports: Ganglion Cyst, Hip Replacement, Shoulder Surgery, Other (See Below) Other Musculoskeletal Surgeries/Procedures:: right ankle surgery. hip surgery. left ankle surgery. left shoulder bone spurs Dermatological Surgical History: Reports: None Social & Family History - Family History Family Medical History: No Pertinent Family History Cardiac: Reports: Bypass, CAD, [place] Musculoskeletal: Reports: Arthritis, Back pain, Chronic, Neck Pain, Chronic Neurological: Reports: Alzheimers Disease Psychiatric: Reports: Anxiety, Bipolar, Depression Oncologic: Reports: Leukemia, Lymphoma - Caffeine Use Caffeine Use: Reports: Coffee, Soda Review of Systems - Review of Systems Review Of Systems: See Below Constitutional: Reports: No Symptoms Eyes: Reports: No Symptoms Ears: Reports: No Symptoms Nose: Reports: No Symptoms Mouth/Throat: Reports: No Symptoms Respiratory: Reports: No Symptoms Cardiovascular: Reports: No Symptoms GI/Abdominal: Reports: No Symptoms Genitourinary: Reports: No Symptoms Musculoskeletal: Reports: Foot Pain (Left lateral foot and fifth toe), Joint Pain (Left fifth toe), Joint Swelling (Left fifth toe) Skin: Reports: Bruising (Left fifth toe) Neurological: Reports: No Symptoms Psychiatric: Reports: No Symptoms ED EXAM, GENERAL - Physical Exam Exam: See Below Exam Limited By: No Limitations General Appearance: Alert, No Apparent Distress Extremities: Joint Swelling (Significant swelling and ecchymosis of the entire left fifth toe.), Limited Range of Motion (Left fifth toe), Other (Tenderness with palpation over the lateral fifth metatarsal.) Neurological: Alert, Oriented, Normal Cognition, No Motor/Sensory Deficits Psychiatric: Normal Affect Skin Exam: Ecchymosis (Phimosis of the left great toe), Erythema (There is a small avulsion laceration on the pad of the left great toe with some erythema.) Lymphatic: No Adenopathy Course - Orders/Labs/Meds Orders: Active Orders 24 hr Category Date Time Status Foot Comp Min 3V Lt [CR] Stat Exams 02/07/21 22:06 Ordered - Radiology Interpretation Free Text/Narrative:: I reviewed the three-view x-rays of the left foot. There is no evidence for an acute fracture of the fifth toe or fifth metatarsal. The patient likely had a dislocation that he reduced. Plates and screws are seen in the distal tibia and fibula from previous surgical intervention. - Re-Assessments/Exams Free Text/Narrative Re-Assessment/Exam: 02/07/21 22:25 there is some redness around the area of the avulsion laceration that was not previously repaired. We are too far out to do any surgical intervention (suturing) at this time and there is no evidence for an abscess, but I will put the patient on an antibiotic for cellulitis related to the laceration. There is no evidence on x-rays of an acute fracture of the fifth toe or the fifth metatarsal. The patient likely had a proximal dislocation of the toe that he self reduced. My plan is to put the patient in a walking boot as I believe it will offer more support than an orthopedic shoe. The patient spends long hours on his feet as he works at [employer]. I will also have him take Tylenol as the mainstay for his pain but we will send him home with a small amount of hydrocodone for breakthrough pain. This will likely heal without any significant difficulties. Departure - Departure Time of Disposition: 22:32 Disposition: Home, Self-Care 01 Clinical Impression: Cellulitis of fifth toe, left Dislocation of fifth toe, left, closed Qualifiers: Encounter type: initial encounter Qualified Code(s): S93.105A - Unspecified dislocation of left toe(s), initial encounter - Discharge Information Instructions: Toe Dislocation, Cellulitis, Adult, [id number] Referrals: Pieter Kim MD [Primary Care Provider] - Care Plan Goals: I have placed you on Keflex 1 tablet twice daily for the skin infection on the base of your toe. In addition I have a small amount of hydrocodone for breakthrough pain. I recommend taking Tylenol as the mainstay of your pain control and use the hydrocodone very sparingly. Please wear the walking boot when up and ambulating around as this will offer additional support to the foot. When not up and walking around I would recommend icing and elevating the foot to reduce the swelling. - Problem List & Annotations (1) Cellulitis of fifth toe, left SNOMED Code(s): 77957721 Code(s): L03.032 - CELLULITIS OF LEFT TOE Status: Acute Priority: Medium Current Visit: Yes (2) Dislocation of fifth toe, left, closed SNOMED Code(s): 074277936 Code(s): S93.105A - UNSPECIFIED DISLOCATION OF LEFT TOE(S), INITIAL ENCOUNTER Status: Acute Priority: Medium Current Visit: Yes Qualifiers: Encounter type: initial encounter Qualified Code(s): S93.105A - Unspecified dislocation of left toe(s), initial encounter - Problem List Review Problem List Initiated/Reviewed/Updated: Yes - My Orders Last 24 Hours: My Active Orders 02/07/21 22:06 Foot Comp Min 3V Lt [CR] Stat - Assessment/Plan Last 24 Hours: My Active Orders 02/07/21 22:06 Foot Comp Min 3V Lt [CR] Stat
--- NOTE | 2021-02-10 09:02 | CR ---
FOOT RIGHT 3 views CLINICAL HISTORY:Fractured fifth toe, lateral foot pain FINDINGS:Patient has had previous fusion of the tibiotalar and talocalcaneal joint with rods and screws. There is osteoarthritic change in the first MTP joint. There is some angulation at the fifth PIP joint. This could represent subluxation. No fracture line seen. IMPRESSION: Surgical fusion at the ankle Osteoarthritic change Deformity at the fifth DIP joint of uncertain chronology. This may represent chronic dislocation
== END 2021-02-07 22:42 | disposition home or self-care (01) ==
LOC: JP.ED 21:53
DX: S93.115A Dislocation of interphalangeal joint of left lesser toe(s), initial encounter (principal); L03.032 Cellulitis of left toe; I48.91 Unspecified atrial fibrillation; I10 Essential (primary) hypertension; J45.909 Unspecified asthma, uncomplicated; E11.9 Type 2 diabetes mellitus without complications; Z88.5 Allergy status to narcotic agent; Z88.8 Allergy status to other drugs, medicaments and biological substances; X58.XXXA Exposure to other specified factors, initial encounter
CPT/HCPCS: 73630-26-LT; 73630-LT; 99283; 99283-25

== ENCOUNTER 2021-03-27 17:00 | Emergency (ER) | payer MEDICARE, MEDICAID ==
[2021-03-27 18:09] VITALS: BP 100/67; PULSE 68
--- NOTE | 2021-03-27 18:27 | EDM.PDOC ---
ED HPI GENERAL MEDICAL PROBLEM - General Chief Complaint: Headache Stated Complaint: SEIZURES, HEADACHE Time Seen by Provider: 03/27/21 17:40 Source of Information: Reports: Patient, Family History Limitations: Reports: No Limitations - History of Present Illness INITIAL COMMENTS - FREE TEXT/NARRATIVE: 55-year-old male recently released from [facility] thinks he had a seizure last night as witnessed by his . Apparently there was incontinence, and for the last several days he has had a persistent headache. He claims that while he was in sn[facility] he had an intense headache causing right-sided paralysis that lasted 2-1/2 hours but resolved. No fevers or chills. He was seen by a local physician in the [facility], he was considering setting him up for an MRI and EEG but felt he needed more acute imaging so sent in for a CT scan. Patient denies double vision, blurred vision, has no peripheral symptoms at this time but continues to have a very intense headache. Apparently he has been treated for seizure disorders in the past but is not on medication. Onset: Unknown/Unsure Location: Reports: Head Quality: Reports: Throbbing Associated Symptoms: Reports: Headaches, Seizure, Other (Claims he had an episode of incontinence and postictal period after his "seizure"). Denies: Fever/Chills, Nausea/Vomiting Headache Pain Score (Numeric/FACES): 9 - Related Data Allergies Allergy/AdvReac Type Severity Reaction Status Date / Time codeine Allergy Rash Verified 03/27/21 17:20 lithium Allergy Seizure Verified 03/27/21 17:20 zolpidem [From Ambien] Allergy Other Verified 03/27/21 17:20 naproxen AdvReac Nausea Verified 03/27/21 17:20 simvastatin AdvReac Muscle Verified 03/27/21 17:20 Aches Home Meds: Home Meds ziprasidone HCL [Geodon] 40 mg PO DAILY 01/15/14 [History] ziprasidone HCL [Geodon] 80 mg PO BEDTIME 08/06/14 [History] Acetaminophen [Tylenol Extra Strength] 500 mg PO Q4HR 02/27/17 [History] ALPRAZolam 2 mg PO QID PRN 12/13/18 [History] Cyclobenzaprine [Flexeril] 10 mg PO QID 09/08/19 [History] Gabapentin [Neurontin] 300 mg PO .AM AND NOON 11/22/19 [History] Gabapentin [Neurontin] 600 mg PO BEDTIME 09/08/19 [History] Escitalopram [Lexapro] 10 mg PO DAILY 11/06/20 [History] Tolterodine Tartrate [Detrol LA] 2 mg PO BID 11/06/20 [History] buPROPion HCL [Bupropion HCl Sr] 1 tab PO BID 11/06/20 [History] cloNIDine HCL [Clonidine HCl] 0.1 mg PO BID PRN 11/06/20 [History] Past Medical History HEENT History: Reports: Hard of Hearing, Impaired Vision, Otitis Media Other HEENT History: wears glasses Cardiovascular History: Reports: Afib, High Cholesterol, Hypertension, SOB on Exertion, Syncope Respiratory History: Reports: Asthma, Bronchitis, Recurrent, Pneumonia, Recurrent Gastrointestinal History: Reports: Bowel Obstruction, Chronic Constipation, Chronic Diarrhea, GERD, Hepatitis, Hiatal Hernia Other Gastrointestinal History: Hepatitis A Genitourinary History: Reports: Renal Calculus, UTI, Recurrent Other Genitourinary History: kidney infections Musculoskeletal History: Reports: Arthritis, Back Pain, Chronic, Fracture, Neck Pain, Chronic Other Musculoskeletal History: chronic leg pains, bone spurs left shoulder Neurological History: Reports: Concussion, Head Trauma, Migraines, Seizure Other Neuro History: 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 Psychiatric History: Reports: Addiction, Anxiety, Bipolar, Depression, Panic Attack, Psych Hospitalization(s), Schizophrenia, Suicide Attempt, Suicidal Ideation Endocrine/Metabolic History: Reports: Diabetes, Type II, Vitamin D Deficiency, Other (See Below) Other Endocrine/Metabolic History: not Diabetic since bariatric procedure Hematologic History: Reports: B12 Deficiency, Folic Acid Dermatologic History: Reports: Other (See Below) Other Dermatologic History: teeny adverse acollor-pigmentation disorder - Infectious Disease History Infectious Disease History: Reports: Chicken Pox, Measles, Novel Coronavirus - Past Surgical History Head Surgeries/Procedures: Reports: None HEENT Surgical History: Reports: Eye Surgery, Oral Surgery Other HEENT Surgeries/Procedures: right eye surgery Cardiovascular Surgical History: Reports: Other (See Below) Other Cardiovascular Surgeries/Procedures: cardioversions Respiratory Surgical History: Reports: None GI Surgical History: Reports: Bariatric Procedure, Other (See Below) Other GI Surgeries/Procedures: hiatal hernia repair Male Surgical History: Reports: None Endocrine Surgical History: Reports: None Neurological Surgical History: Reports: None Musculoskeletal Surgical History: Reports: Ganglion Cyst, Hip Replacement, Shoulder Surgery, Other (See Below) Other Musculoskeletal Surgeries/Procedures:: right ankle surgery. hip surgery. left ankle surgery. left shoulder bone spurs Dermatological Surgical History: Reports: None Social & Family History - Family History Family Medical History: No Pertinent Family History Cardiac: Reports: Bypass, CAD, [place] Musculoskeletal: Reports: Arthritis, Back pain, Chronic, Neck Pain, Chronic Neurological: Reports: Alzheimers Disease Psychiatric: Reports: Anxiety, Bipolar, Depression Oncologic: Reports: Leukemia, Lymphoma - Tobacco Use Tobacco Use Status *Q: Current Every Day Tobacco User Years of Tobacco use: 40 Packs/Tins Daily: 1 - Caffeine Use Caffeine Use: Reports: Coffee, Soda - Recreational Drug Use Recreational Drug Use: Yes Recreational Drug Type: Reports: Marijuana/Hashish Recreational Drug Use Frequency: Weekly ED ROS GENERAL - Review of Systems Review Of Systems: See Below Constitutional: Reports: Malaise. Denies: Fever, Chills HEENT: Reports: Other (Mild photophobia). Denies: Vision Change Respiratory: Denies: Shortness of Breath Cardiovascular: Denies: Chest Pain GI/Abdominal: Denies: Nausea, Vomiting (To a comment in the section, injured his constipation with vigorous rectal rectal digital exam) : Reports: Incontinence Neurological: Reports: Headache (Is due), Other (See HPI) - Physical Exam Exam: See Below Exam Limited By: No Limitations General Appearance: Alert, No Apparent Distress, Other (Looks uncomfortable, photophobic) Eye Exam: Bilateral Eye: EOMI, PERRL Head Exam: Atraumatic Neck: Supple Respiratory/Chest: No Respiratory Distress Cardiovascular: Regular Rate, Rhythm Neuro Exam (Abbreviated): Alert, Oriented, No Motor/Sensory Deficits Extremities: No: Pedal Edema Psychiatric: Flat Affect Skin Exam: Warm, Dry Course - Vital Signs Last Recorded V/S: Last Vital Signs Temp 98.0 F 03/27/21 17:18 Pulse 68 03/27/21 18:08 Resp 16 03/27/21 17:18 BP 100/67 03/27/21 18:08 Pulse Ox 95 03/27/21 17:18 - Re-Assessments/Exams Free Text/Narrative Re-Assessment/Exam: 03/27/21 18:37 Patient remained stable in the ER, CT of the head was negative, report as follows I Impression: 1. No acute intracranial hemorrhage or mass. 2. Paranasal sinus disease. No treatment today, patient will follow up with his primary provider with the above results and discuss whether medication is needed versus further work-up prior to initiating any treatment. Departure - Departure Time of Disposition: 18:45 Disposition: Home, Self-Care 01 Clinical Impression: Seizure-like activity Headache Qualifiers: Headache chronicity pattern: unspecified pattern Intractability: not intractable - Discharge Information Instructions: General Headache Without Cause, Cith-bc-[id number] Referrals: PCP,None [Primary Care Provider] - Forms: ED Department Discharge Care Plan Goals: Continue current medications, call your primary tomorrow to set up an appointment later this week to discuss your normal CT and any further work-up needed for your possible recurrence of seizures and persistent headache. Sepsis Event Note (ED) - Evaluation Sepsis Screening Result: No Definite Risk
--- NOTE | 2021-03-27 18:32 | CRLCT ---
For Patients: As a result of the Century Cures Act, medical imaging exams and procedure reports are released immediately into your electronic medical record. You may view this report before your referring provider. If you have questions, please contact your health care provider. Indication: Headache possible seizure Technique: Noncontrast head CT Comparison: No comparison Findings: Axial noncontrast images the brain parenchyma demonstrates no acute intracranial hemorrhage or mass no midline shift. No abnormal extra-axial air collections. High right posterior scalp contusion. Fluid level in the right maxillary sinus level left sphenoid sinus thickening of the ethmoid air cells of right sphenoid sinus. Paranasal sinuses mastoid air cells, skull scalp otherwise appears unremarkable. Impression: 1. No acute intracranial hemorrhage or mass. 2. Paranasal sinus disease. Please note that all CT scans at this facility use dose modulation, iterative reconstruction, and/or weight-based dosing when appropriate to reduce radiation dose to as low as reasonably achievable. Dictated by Yarelis Paula MD @ 03/27/2021 6:31:[address] Yarelis Paula @ Mar 27 2021 6:31PM
== END 2021-03-27 18:44 | disposition home or self-care (01) ==
LOC: JP.ED 17:00
DX: R56.9 Unspecified convulsions (principal); R51.9 Headache, unspecified; I48.91 Unspecified atrial fibrillation; E78.00 Pure hypercholesterolemia, unspecified; I10 Essential (primary) hypertension; E11.9 Type 2 diabetes mellitus without complications; Z88.5 Allergy status to narcotic agent; Z88.8 Allergy status to other drugs, medicaments and biological substances; Z91.048 Other nonmedicinal substance allergy status
CPT/HCPCS: 70450; 99283; 99285-25

== ENCOUNTER 2021-08-17 15:55 | Emergency (ER) | payer MEDICARE, MEDICAID ==
--- NOTE | 2021-08-17 17:05 | EDM.PDOC ---
ED HPI GENERAL MEDICAL PROBLEM - General Chief Complaint: Abdominal Pain Stated Complaint: SWEATS/STOMACH PAIN Time Seen by Provider: 08/17/21 17:05 Source of Information: Reports: Patient, RN Notes Reviewed History Limitations: Reports: No Limitations - History of Present Illness INITIAL COMMENTS - FREE TEXT/NARRATIVE: Dez presents today for acute onset abdominal pain for three days with fever, chills and vomiting. He states the past two days the pain has been worse. He has not tried any OTC medications or treatments for the pain. He also reports nausea, vomiting at times. Last emesis was today at noon. When pain is at its worst it is 9/10, when it is its most mild it is 5/10. He denies any injury, trauma, diarrhea, constipation or any other concerns. Last PO water intake today at noon. Last PO food 3 days ago, 1/2 cheeseburger. Last use of marijuana 3 days ago. - Related Data Allergies Allergy/AdvReac Type Severity Reaction Status Date / Time codeine Allergy Rash Verified 08/17/21 16:51 lithium Allergy Seizure Verified 08/17/21 16:51 zolpidem [From Ambien] Allergy Other Verified 08/17/21 16:51 naproxen AdvReac Nausea Verified 08/17/21 16:51 simvastatin AdvReac Muscle Verified 08/17/21 16:51 Aches Home Meds: Home Meds ziprasidone HCL [Geodon] 40 mg PO DAILY 01/15/14 [History] ziprasidone HCL [Geodon] 80 mg PO BEDTIME 08/06/14 [History] Acetaminophen [Tylenol Extra Strength] 500 mg PO Q4HR 02/27/17 [History] ALPRAZolam 2 mg PO QID PRN 12/13/18 [History] Cyclobenzaprine [Flexeril] 10 mg PO QID 09/08/19 [History] Gabapentin [Neurontin] 300 mg PO .AM AND NOON 09/08/19 [History] Gabapentin [Neurontin] 600 mg PO BEDTIME 09/08/19 [History] Escitalopram [Lexapro] 10 mg PO DAILY 11/06/20 [History] Tolterodine Tartrate [Detrol LA] 2 mg PO BID 11/06/20 [History] buPROPion HCL [Bupropion HCl Sr] 1 tab PO BID 11/06/20 [History] cloNIDine HCL [Clonidine HCl] 0.1 mg PO BID PRN 11/06/20 [History] Past Medical History HEENT History: Reports: Hard of Hearing, Impaired Vision, Otitis Media Other HEENT History: wears glasses Cardiovascular History: Reports: Afib, High Cholesterol, Hypertension, SOB on Exertion, Syncope Respiratory History: Reports: Asthma, Bronchitis, Recurrent, Pneumonia, Recurrent Gastrointestinal History: Reports: Bowel Obstruction, Chronic Constipation, Chronic Diarrhea, GERD, Hepatitis, Hiatal Hernia Other Gastrointestinal History: Hepatitis A Genitourinary History: Reports: Renal Calculus, UTI, Recurrent Other Genitourinary History: kidney infections Musculoskeletal History: Reports: Arthritis, Back Pain, Chronic, Fracture, Neck Pain, Chronic Other Musculoskeletal History: chronic leg pains, bone spurs left shoulder Neurological History: Reports: Concussion, Head Trauma, Migraines, Seizure Other Neuro History: 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 Psychiatric History: Reports: Addiction, Anxiety, Bipolar, Depression, Panic Attack, Psych Hospitalization(s), Schizophrenia, Suicide Attempt, Suicidal Ideation Endocrine/Metabolic History: Reports: Diabetes, Type II, Vitamin D Deficiency, Other (See Below) Other Endocrine/Metabolic History: not Diabetic since bariatric procedure Hematologic History: Reports: B12 Deficiency, Folic Acid Dermatologic History: Reports: Other (See Below) Other Dermatologic History: teeny adverse acollor-pigmentation disorder - Infectious Disease History Infectious Disease History: Reports: Chicken Pox, Hepatitis A, Measles, Novel Coronavirus - Past Surgical History Head Surgeries/Procedures: Reports: None HEENT Surgical History: Reports: Eye Surgery, Oral Surgery Other HEENT Surgeries/Procedures: right eye surgery Cardiovascular Surgical History: Reports: Other (See Below) Other Cardiovascular Surgeries/Procedures: cardioversions Respiratory Surgical History: Reports: None GI Surgical History: Reports: Bariatric Procedure, Hernia Repair/Other, Other (See Below) Other GI Surgeries/Procedures: hiatal hernia repair Male Surgical History: Reports: None Endocrine Surgical History: Reports: None Neurological Surgical History: Reports: None Musculoskeletal Surgical History: Reports: Ganglion Cyst, Hip Replacement, Shoulder Surgery, Other (See Below) Other Musculoskeletal Surgeries/Procedures:: right ankle surgery. hip surgery. left ankle surgery. left shoulder bone spurs Dermatological Surgical History: Reports: None Social & Family History - Family History Family Medical History: No Pertinent Family History Cardiac: Reports: Bypass, CAD, [place] Musculoskeletal: Reports: Arthritis, Back pain, Chronic, Neck Pain, Chronic Neurological: Reports: Alzheimers Disease Psychiatric: Reports: Anxiety, Bipolar, Depression Oncologic: Reports: Leukemia, Lymphoma - Tobacco Use Tobacco Use Status *Q: Current Every Day Tobacco User Years of Tobacco use: 40 Packs/Tins Daily: 1 - Caffeine Use Caffeine Use: Reports: Soda - Recreational Drug Use Recreational Drug Use: Yes Recreational Drug Type: Reports: Marijuana/Hashish, Methamphetamine, Other (see below) Other Recreational Drug Type: states he is on medical canabis and it's been about a year since any meth ED ROS GENERAL - Review of Systems Review Of Systems: See Below Constitutional: Reports: Fever, Chills HEENT: Reports: No Symptoms Respiratory: Reports: No Symptoms Cardiovascular: Reports: No Symptoms Endocrine: Reports: No Symptoms GI/Abdominal: Reports: Abdominal Pain, Decreased Appetite, Nausea, Vomiting. Denies: Anorexia, Black Stool, Bloody Stool, Constipation, Diarrhea, Difficulty Swallowing, Distension, Hematemesis, Hematochezia, Melena, Mucous in Stool, Stool Incontinence : Reports: No Symptoms Musculoskeletal: Reports: No Symptoms Skin: Reports: No Symptoms Neurological: Reports: No Symptoms Psychiatric: Reports: No Symptoms Hematologic/Lymphatic: Reports: No Symptoms Immunologic: Reports: No Symptoms ED EXAM, GI/ABD - Physical Exam Exam: See Below Exam Limited By: No Limitations General Appearance: Alert, WD/WN, Moderate Distress Eyes: Bilateral: Normal Appearance Ears: Normal External Exam, Normal Canal, Hearing Grossly Normal, Normal TMs Throat/Mouth: Normal Inspection, Normal Lips, Normal Gums, Normal Oropharynx, Normal Voice, No Airway Compromise Head: Atraumatic, Normocephalic Neck: Normal Inspection, Supple, Non-Tender, Full Range of Motion. No: Lymphadenopathy (R), Lymphadenopathy (L) Respiratory/Chest: No Respiratory Distress, Lungs Clear, Normal Breath Sounds, No Accessory Muscle Use, Chest Non-Tender. No: Crackles, Rales, Rhonchi, Wheezing, Stridor, Retractions, Splinting Cardiovascular: Normal Peripheral Pulses, Regular Rate, Rhythm, No Edema, No Gallop, No Murmur, No Rub GI/Abdominal Exam: Normal Bowel Sounds, Soft, No Organomegaly, No Distention, No Mass, Tender (to mid-abdomen area). No: Guarding, Rigid, Rebound (Male) Exam: Deferred Rectal (Males) Exam: Deferred Back Exam: Normal Inspection, Full Range of Motion. No: CVA Tenderness (R), CVA Tenderness (L) Extremities: Normal Inspection, Normal Range of Motion, Non-Tender, No Pedal Edema, Normal Capillary Refill Neurological: Alert, Oriented, Normal Cognition, Normal Gait, No Motor/Sensory Deficits Psychiatric: Normal Affect, Normal Mood Skin Exam: Intact, Normal Color, No Rash, Diaphoretic. No: Cyanosis, Ecchymosis, Erythema, Jaundice, Mottled, Pallor Lymphatic: No Adenopathy Course - Vital Signs Last Recorded V/S: Last Vital Signs Temp 36.3 C 08/17/21 16:54 Pulse 62 08/17/21 19:06 Resp 22 H 08/17/21 16:54 BP 93/57 L 08/17/21 19:06 Pulse Ox 97 08/17/21 19:06 - Orders/Labs/Meds Orders: Active Orders 24 hr Category Date Time Status Sodium Chloride 0.9% [Normal Saline] 1,000 ml Med 08/17/21 17:18 Active IV .BOLUS Sodium Chloride 0.9% [Saline Flush] Med 08/17/21 17:18 Active 10 ml FLUSH ASDIRECTED PRN Saline Lock Insert [OM.PC] Routine Oth 08/17/21 17:18 Ordered Medication Orders Sodium Chloride (Normal Saline) 1,000 mls @ 250 mls/hr IV .BOLUS ONE Stop: 08/17/21 21:17 Last Admin: 08/17/21 17:32 Dose: 250 mls/hr Documented by: CHANCE Sodium Chloride (Sodium Chloride 0.9% 10 Ml Syringe) 10 ml FLUSH ASDIRECTED PRN PRN Reason: Keep Vein Open Last Admin: 08/17/21 17:39 Dose: 10 ml Documented by: CHANCE Labs: Laboratory Tests 08/17/21 08/17/21 08/17/21 Range/Units 17:29 17:29 17:29 WBC 7.4 (4.5-11.0) K/uL RBC 5.50 (4.30-5.90) M/uL Hgb 15.9 H D (12.0-15.0) g/dL Hct 47.0 (40.0-54.0) % MCV 86 (80-98) fL MCH 29 (27-31) pg MCHC 34 (32-36) % Plt Count 250 (150-400) K/uL Sodium 142 (140-148) mmol/L Potassium 3.7 (3.6-5.2) mmol/L Chloride 105 (100-108) mmol/L Carbon Dioxide 26 (21-32) mmol/L Anion Gap 10.6 (5.0-14.0) mmol/L BUN 8 (7-18) mg/dL Creatinine 0.8 (0.8-1.3) mg/dL Est Cr Clr Drug Dosing 115.86 mL/min Estimated GFR (MDRD) > 60 (>60) Glucose 99 (74-106) mg/dL Calcium 9.2 (8.5-10.1) mg/dL Total Bilirubin 0.6 D (0.2-1.0) mg/dL AST 19 (15-37) U/L ALT 30 (12-78) U/L Alkaline Phosphatase 73 (46-116) U/L C-Reactive Protein 0.07 (0.0-0.3) mg/dL Total Protein 7.1 (6.4-8.2) g/dL Albumin 3.8 (3.4-5.0) g/dL Globulin 3.3 (2.3-3.5) g/dL Albumin/Globulin Ratio 1.2 (1.2-2.2) Amylase 29 (25-115) U/L Lipase 88 (73-393) U/L Urine Color (YELLOW) Urine Appearance (CLEAR) Urine pH (5.0-8.0) Ur Specific [place] (1.008-1.030) Urine Protein (NEGATIVE) mg/dL Urine Glucose (UA) (NEGATIVE) mg/dL Urine Ketones (NEGATIVE) mg/dL Urine Occult Blood (NEGATIVE) Urine Nitrite (NEGATIVE) Urine Bilirubin (NEGATIVE) Urine Urobilinogen (0.2-1.0) EU/dL Ur Leukocyte Esterase (NEGATIVE) Urine RBC (0-5) Urine WBC (0-5) Ur Epithelial Cells Amorphous Sediment Urine Bacteria Urine Mucus Urine Opiates Screen (NEGATIVE) Ur Oxycodone Screen (NEGATIVE) Urine Methadone Screen (NEGATIVE) Ur Propoxyphene Screen (NEGATIVE) Ur Barbiturates Screen (NEGATIVE) Ur Tricyclics Screen (NEGATIVE) Ur Phencyclidine Scrn (NEGATIVE) Ur Amphetamine Screen (NEGATIVE) U Methamphetamines Scrn (NEGATIVE) Urine MDMA Screen (NEGATIVE) U Benzodiazepines Scrn (NEGATIVE) U Cocaine Metab Screen (NEGATIVE) U Marijuana (THC) Screen (NEGATIVE) 08/17/21 08/17/21 Range/Units 18:47 18:47 WBC (4.5-11.0) K/uL RBC (4.30-5.90) M/uL Hgb (12.0-15.0) g/dL Hct (40.0-54.0) % MCV (80-98) fL MCH (27-31) pg MCHC (32-36) % Plt Count (150-400) K/uL Sodium (140-148) mmol/L Potassium (3.6-5.2) mmol/L Chloride (100-108) mmol/L Carbon Dioxide (21-32) mmol/L Anion Gap (5.0-14.0) mmol/L BUN (7-18) mg/dL Creatinine (0.8-1.3) mg/dL Est Cr Clr Drug Dosing mL/min Estimated GFR (MDRD) (>60) Glucose (74-106) mg/dL Calcium (8.5-10.1) mg/dL Total Bilirubin (0.2-1.0) mg/dL AST (15-37) U/L ALT (12-78) U/L Alkaline Phosphatase (46-116) U/L C-Reactive Protein (0.0-0.3) mg/dL Total Protein (6.4-8.2) g/dL Albumin (3.4-5.0) g/dL Globulin (2.3-3.5) g/dL Albumin/Globulin Ratio (1.2-2.2) Amylase (25-115) U/L Lipase (73-393) U/L Urine Color Yellow (YELLOW) Urine Appearance Clear (CLEAR) Urine pH 7.5 (5.0-8.0) Ur Specific [place] 1.025 (1.008-1.030) Urine Protein Negative (NEGATIVE) mg/dL Urine Glucose (UA) Negative (NEGATIVE) mg/dL Urine Ketones 15 H (NEGATIVE) mg/dL Urine Occult Blood Negative (NEGATIVE) Urine Nitrite Negative (NEGATIVE) Urine Bilirubin Small H (NEGATIVE) Urine Urobilinogen >=8.0 H (0.2-1.0) EU/dL Ur Leukocyte Esterase Negative (NEGATIVE) Urine RBC Not seen (0-5) Urine WBC 0-5 (0-5) Ur Epithelial Cells Rare Amorphous Sediment Not seen Urine Bacteria Moderate Urine Mucus Moderate Urine Opiates Screen Presumptive positive H (NEGATIVE) Ur Oxycodone Screen Negative (NEGATIVE) Urine Methadone Screen Negative (NEGATIVE) Ur Propoxyphene Screen Negative (NEGATIVE) Ur Barbiturates Screen Negative (NEGATIVE) Ur Tricyclics Screen Presumptive positive H (NEGATIVE) Ur Phencyclidine Scrn Negative (NEGATIVE) Ur Amphetamine Screen Negative (NEGATIVE) U Methamphetamines Scrn Negative (NEGATIVE) Urine MDMA Screen Negative (NEGATIVE) U Benzodiazepines Scrn Negative (NEGATIVE) U Cocaine Metab Screen Negative (NEGATIVE) U Marijuana (THC) Screen Presumptive positive H (NEGATIVE) Patient lab work reviewed, no acute findings. UDS appropriate. Meds: Medications Generic Name Dose Route Start Last Admin Trade Name Freq PRN Reason Stop Dose Admin Sodium Chloride 1,000 mls @ 250 mls/hr 08/17/21 17:18 08/17/21 17:32 Normal Saline IV 08/17/21 21:17 250 mls/hr .BOLUS ONE Administration Sodium Chloride 10 ml 08/17/21 17:18 08/17/21 17:39 Sodium Chloride 0.9% 10 Ml Syringe FLUSH 10 ml ASDIRECTED PRN Administration Keep Vein Open Discontinued Medications Generic Name Dose Route Start Last Admin Trade Name Freq PRN Reason Stop Dose Admin Hydromorphone HCl 1 mg 08/17/21 17:18 08/17/21 17:29 Hydromorphone 1 Mg/Ml Syringe IVPUSH 08/17/21 17:19 1 mg ONETIME ONE Administration Lactulose 10 gm 08/17/21 19:07 Lactulose Soln 10 Gm/15 Ml 15 Ml Ud Cup PO 08/17/21 19:08 ONETIME ONE Ondansetron HCl 4 mg 08/17/21 17:18 08/17/21 17:29 Ondansetron 4 Mg/2 Ml Sdv IVPUSH 08/17/21 17:19 4 mg ONETIME ONE Administration - Radiology Interpretation Free Text/Narrative:: CT abdomen and pelvis without contrast completed. No acute findings in the abdomen or pelvis. Abundant stool in the colon. - Re-Assessments/Exams Free Text/Narrative Re-Assessment/Exam: 08/17/21 19:05 Patient reports his pain is relieved, he states he feels better. Discussed lab and CT findings, we will discharge him to home and have him follow up with Dr. Kim. Patient in agreement with plan. Departure - Departure Time of Disposition: 19:10 Disposition: Home, Self-Care 01 Condition: Good Clinical Impression: Abdominal pain, Nausea Constipation Qualifiers: Constipation type: slow transit constipation Qualified Code(s): K59.01 - Slow transit constipation - Discharge Information Instructions: Nausea and Vomiting, Adult, [id number], Constipation, Adult Referrals: Pieter Kim MD [Primary Care Provider] - Forms: ED Department Discharge Additional Instructions: You have been evaluated and treated for abdominal pain, nausea and constipation. CT of the abdomen and pelvis showed not acute findings with exception of constipation. Your lab work did not have any acute findings. Take ondansetron 4mg by mouth every 8 hours as needed for nausea. Wait 30 minutes then try oral fluids. Work on increased water intake to help with constipation. You can try use of lactulose 30ml by mouth twice a day for three days then lactulose 30ml by mouth daily for 14 days to see if this helps your constipation. Follow up with Dr. Kim in 7 to 10 days for a recheck and best management of bowel protocol. You could also be suffering from a viral illness, return to emergency room for and difficulty breathing or other concerns. Sepsis Event Note (ED) - Evaluation Sepsis Screening Result: No Definite Risk - Focused Exam Vital Signs: Vital Signs Temp Pulse Resp BP Pulse Ox 08/17/21 19:06 62 93/57 L 97 08/17/21 16:54 36.3 C 71 22 H 123/75 99 08/17/21 16:52 71 123/75 99 08/17/21 16:15 36.3 C 82 22 H 122/93 H 98 - My Orders Last 24 Hours: My Active Orders 08/17/21 17:18 Sodium Chloride 0.9% [Normal Saline] 1,000 ml IV .BOLUS Sodium Chloride 0.9% [Saline Flush] 10 ml FLUSH ASDIRECTED PRN Saline Lock Insert [OM.PC] Routine - Assessment/Plan Last 24 Hours: My Active Orders 08/17/21 17:18 Sodium Chloride 0.9% [Normal Saline] 1,000 ml IV .BOLUS Sodium Chloride 0.9% [Saline Flush] 10 ml FLUSH ASDIRECTED PRN Saline Lock Insert [OM.PC] Routine Assessment:: Abdominal pain, Nausea, constipation Follow up with Dr. Kim needed. Plan: Patient evaluated and treated for abdominal pain, nausea and constipation. CT of the abdomen and pelvis showed not acute findings with exception of constipation. Lab work did not have any acute findings. Take ondansetron 4mg by mouth every 8 hours as needed for nausea. Wait 30 minutes then try oral fluids. Work on increased water intake to help with constipation. Try use of lactulose 30ml by mouth twice a day for three days then lactulose 30ml by mouth daily for 14 days to see if this helps your constipation. Follow up with Dr. Kim in 7 to 10 days for a recheck and best management of bowel protocol. Patient could also be suffering from a viral illness, return to emergency room for and difficulty breathing or other concerns.
[2021-08-17] MEDS: HYDROmorphone 1 MG/ML Syringe IVPUSH ONE (17:29)
[2021-08-17] MEDS: Ondansetron 4 MG/2 ML SDV IVPUSH ONE (17:29)
[2021-08-17] MEDS: Sodium Chloride 0.9% 1,000 ML IV ONE (17:32)
[2021-08-17] MEDS: Sodium Chloride 0.9% 10 ML Syringe FLUSH PRN (17:39)
--- NOTE | 2021-08-17 18:00 | CRLCT ---
For Patients: As a result of the Century Cures Act, medical imaging exams and procedure reports are released immediately into your electronic medical record. You may view this report before your referring provider. If you have questions, please contact your health care provider. Indication: Abdominal pain Technique: Noncontrast CT abdomen and pelvis Comparison: CT abdomen and pelvis 12/21/2020 Findings: Heart size normal. No pericardial. Lung bases are clear. Unenhanced liver spleen gallbladder unremarkable pancreas unremarkable. Adrenal glands unremarkable no abdominal aortic aneurysm. Low-attenuation lesions in the kidneys incompletely assessed. No hydronephrosis. No renal calculi. Large amount of stool in the colon no bowel obstruction. Urinary bladder unremarkable prostate gland unremarkable. Left hip arthroplasty. No suspicious bony lesions Impression: 1. No acute findings in the abdomen or pelvis. 2. Abundant stool in the colon Please note that all CT scans at this facility use dose modulation, iterative reconstruction, and/or weight-based dosing when appropriate to reduce radiation dose to as low as reasonably achievable. Dictated by Yarelis Paula MD @ 08/17/2021 6:00:07 PM (Electronically Signed)
[2021-08-17 19:07] VITALS: BP 93/57; PULSE 62
[2021-08-17] MEDS: Lactulose Soln 10 GM/15 ML 15 ML UD Cup PO ONE (19:40)
== END 2021-08-17 19:42 | disposition home or self-care (01) ==
LOC: JP.ED 15:55
DX: K59.01 Slow transit constipation (principal); I48.91 Unspecified atrial fibrillation; E78.00 Pure hypercholesterolemia, unspecified; E11.9 Type 2 diabetes mellitus without complications; Z72.0 Tobacco use; Z88.5 Allergy status to narcotic agent; Z88.8 Allergy status to other drugs, medicaments and biological substances
CPT/HCPCS: 36415; 74176; 80053; 80305; 81001; 82150; 83690; 85027; 86140; 96374; 96375; 99284; A9270; J1170; J2405; J7030

== ENCOUNTER 2021-12-15 00:20 | Emergency (ER) | payer MEDICARE, MEDICAID ==
[2021-12-15 00:49] VITALS: BP 111/61; PULSE 68
== END 2021-12-15 01:29 | disposition home or self-care (01) ==
LOC: JP.ED 00:20
DX: R07.89 Other chest pain (principal); F41.1 Generalized anxiety disorder; F45.8 Other somatoform disorders; I48.91 Unspecified atrial fibrillation; E78.00 Pure hypercholesterolemia, unspecified; I10 Essential (primary) hypertension; J45.909 Unspecified asthma, uncomplicated; E11.9 Type 2 diabetes mellitus without complications; Z91.018 Allergy to other foods; Z88.5 Allergy status to narcotic agent; Z91.048 Other nonmedicinal substance allergy status; Z79.899 Other long term (current) drug therapy
CPT/HCPCS: 36415; 71045; 71045-26; 80053; 84443; 84484; 85025; 85610; 85730; 86140; 93005; 93010; 99282; 99285-25

== ENCOUNTER 2022-03-18 20:40 | Emergency (ER) | payer MEDICARE, MEDICAID ==
[2022-03-18 21:07] VITALS: BP 122/77; PULSE 90
[2022-03-18] MEDS: HYDROmorphone 1 MG/ML Syringe IVPUSH ONE (21:17)
[2022-03-18] MEDS: Sodium Chloride 0.9% 10 ML Syringe FLUSH PRN (21:18)
[2022-03-18] MEDS: Ondansetron 4 MG/2 ML SDV IVPUSH ONE (21:18)
[2022-03-18] MEDS: HYDROmorphone 0.5 MG/0.5 ML Syringe IVPUSH ONE (22:05)
[2022-03-18] MEDS: Methocarbamol 500 MG Tab PO ONE (22:05)
== END 2022-03-18 23:17 | disposition home or self-care (01) ==
LOC: JP.ED 20:40
DX: S16.1XXA Strain of muscle, fascia and tendon at neck level, initial encounter (principal); M48.02 Spinal stenosis, cervical region; M54.12 Radiculopathy, cervical region; I48.91 Unspecified atrial fibrillation; E78.00 Pure hypercholesterolemia, unspecified; I10 Essential (primary) hypertension; J44.9 Chronic obstructive pulmonary disease, unspecified; E11.40 Type 2 diabetes mellitus with diabetic neuropathy, unspecified; F17.210 Nicotine dependence, cigarettes, uncomplicated; Z91.018 Allergy to other foods; Z88.5 Allergy status to narcotic agent; Z88.8 Allergy status to other drugs, medicaments and biological substances; Z86.16 Personal history of COVID-19; W10.8XXA Fall (on) (from) other stairs and steps, initial encounter
CPT/HCPCS: 72125; 73030; 96374; 96375; 96376; 99284; A9270; J1170; J2405; J3490

== ENCOUNTER 2022-03-25 01:51 | Emergency (ER) | payer MEDICARE, MEDICAID ==
[2022-03-25] MEDS ORDERED: predniSONE 20 MG Tab PO ONE (02:30)
[2022-03-25] MEDS ORDERED: Lidocaine 1% with EPINEPHrine 1:100,000 50 ML MDV INFILT ONE (02:30)
[2022-03-25 02:46] VITALS: BP 112/80; PULSE 77
[2022-03-25] MEDS ORDERED: Acetaminophen/oxyCODONE 325-5 MG Tab PO ONE (02:58)
== END 2022-03-25 03:11 | disposition home or self-care (01) ==
LOC: JP.ED 01:51
DX: M50.122 Cervical disc disorder at C5-C6 level with radiculopathy (principal); M48.02 Spinal stenosis, cervical region; M67.912 Unspecified disorder of synovium and tendon, left shoulder; I48.91 Unspecified atrial fibrillation; J44.9 Chronic obstructive pulmonary disease, unspecified; I10 Essential (primary) hypertension; E11.9 Type 2 diabetes mellitus without complications; Z88.5 Allergy status to narcotic agent; Z91.018 Allergy to other foods; Z91.048 Other nonmedicinal substance allergy status; Z88.8 Allergy status to other drugs, medicaments and biological substances
CPT/HCPCS: 20552; 99283; A9270; J7512

== ENCOUNTER 2022-03-30 14:14 | Emergency (ER) | payer MEDICARE, MEDICAID ==
[2022-03-30 14:52] VITALS: BP 127/72; PULSE 76
[2022-03-30] MEDS ORDERED: HYDROmorphone 1 MG/ML Syringe IM ONE (16:39)
== END 2022-03-30 17:10 | disposition home or self-care (01) ==
LOC: JP.ED 14:14
DX: M48.02 Spinal stenosis, cervical region (principal); I10 Essential (primary) hypertension; J44.9 Chronic obstructive pulmonary disease, unspecified; E11.40 Type 2 diabetes mellitus with diabetic neuropathy, unspecified; F17.210 Nicotine dependence, cigarettes, uncomplicated; Z86.16 Personal history of COVID-19; Z79.899 Other long term (current) drug therapy; Z88.5 Allergy status to narcotic agent; Z91.018 Allergy to other foods; Z88.8 Allergy status to other drugs, medicaments and biological substances; Z91.048 Other nonmedicinal substance allergy status
CPT/HCPCS: 96372; 99283; J1170

== ENCOUNTER 2023-02-02 20:53 | Emergency (ER) | payer MEDICARE, MEDICAID ==
[2023-02-02 21:33] VITALS: BP 106/67; PULSE 72
[2023-02-02] MEDS ORDERED: fentaNYL 100 MCG/2 ML SDV IM ONE (22:05)
== END 2023-02-02 23:09 | disposition home or self-care (01) ==
LOC: JP.ED 20:53
DX: M25.561 Pain in right knee (principal); G89.29 Other chronic pain; I48.91 Unspecified atrial fibrillation; E78.00 Pure hypercholesterolemia, unspecified; I10 Essential (primary) hypertension; J44.9 Chronic obstructive pulmonary disease, unspecified; E11.9 Type 2 diabetes mellitus without complications; Z72.0 Tobacco use; Z88.5 Allergy status to narcotic agent; Z88.6 Allergy status to analgesic agent; Z88.8 Allergy status to other drugs, medicaments and biological substances; Z91.018 Allergy to other foods; W18.30XA Fall on same level, unspecified, initial encounter
CPT/HCPCS: 73502; 73562; 96372; 99283; J3010

== ENCOUNTER 2023-03-06 02:16 | Emergency (ER) | payer OTHER, MEDICARE, MEDICAID ==
[2023-03-06] MEDS ORDERED: Ketorolac 30 MG/ML SDV IM ONE (02:47)
[2023-03-06 03:35] VITALS: BP 107/80; PULSE 64
== END 2023-03-06 04:26 | disposition home or self-care (01) ==
LOC: EEVIPCON 02:16 → JP.ED 02:16
DX: S40.012A Contusion of left shoulder, initial encounter (principal); S50.02XA Contusion of left elbow, initial encounter; M54.12 Radiculopathy, cervical region; M48.02 Spinal stenosis, cervical region; I48.91 Unspecified atrial fibrillation; I10 Essential (primary) hypertension; J44.9 Chronic obstructive pulmonary disease, unspecified; E11.40 Type 2 diabetes mellitus with diabetic neuropathy, unspecified; Z86.16 Personal history of COVID-19; Z88.5 Allergy status to narcotic agent; Z88.8 Allergy status to other drugs, medicaments and biological substances; Z88.6 Allergy status to analgesic agent; W18.30XA Fall on same level, unspecified, initial encounter
CPT/HCPCS: 72125; 73030; 73070; 96372; 99283; J1885

== ENCOUNTER 2023-05-29 16:31 | Emergency (ER) | payer OTHER, MEDICARE, MEDICAID ==
[2023-05-29 17:11] VITALS: BP 118/66; PULSE 77
== END 2023-05-29 19:02 | disposition home or self-care (01) ==
LOC: JP.ED 16:31
DX: M25.521 Pain in right elbow (principal); I48.91 Unspecified atrial fibrillation; I10 Essential (primary) hypertension; J44.9 Chronic obstructive pulmonary disease, unspecified; E11.40 Type 2 diabetes mellitus with diabetic neuropathy, unspecified; Z86.16 Personal history of COVID-19; Z88.5 Allergy status to narcotic agent; Z91.018 Allergy to other foods; Z88.6 Allergy status to analgesic agent; Z88.8 Allergy status to other drugs, medicaments and biological substances
CPT/HCPCS: 73080-RT; 99283; 99284

== ENCOUNTER 2023-06-06 15:50 | Emergency (ER) | payer OTHER, MEDICARE, MEDICAID ==
[2023-06-06] MEDS ORDERED: Ketorolac 30 MG/ML SDV IM ONE (16:40)
[2023-06-06 17:13] VITALS: BP 116/74; PULSE 64
== END 2023-06-06 17:34 | disposition home or self-care (01) ==
LOC: JP.ED 15:50
DX: M25.511 Pain in right shoulder (principal); I48.91 Unspecified atrial fibrillation; E78.00 Pure hypercholesterolemia, unspecified; I10 Essential (primary) hypertension; J44.9 Chronic obstructive pulmonary disease, unspecified; E11.40 Type 2 diabetes mellitus with diabetic neuropathy, unspecified; Z72.0 Tobacco use; Z86.16 Personal history of COVID-19; Z88.5 Allergy status to narcotic agent; Z88.6 Allergy status to analgesic agent; Z91.018 Allergy to other foods; Z88.8 Allergy status to other drugs, medicaments and biological substances; Z91.048 Other nonmedicinal substance allergy status; X50.0XXA Overexertion from strenuous movement or load, initial encounter; Y99.0 Civilian activity done for income or pay
CPT/HCPCS: 73030; 96372; 99283; J1885

== ENCOUNTER 2023-09-11 15:01 | Emergency (ER) | payer MEDICARE ==
[2023-09-11 16:46] VITALS: BP 107/74; PULSE 77
== END 2023-09-11 17:44 | disposition home or self-care (01) ==
LOC: JP.ED 15:01
DX: S70.01XA Contusion of right hip, initial encounter (principal); G89.18 Other acute postprocedural pain; I10 Essential (primary) hypertension; E78.00 Pure hypercholesterolemia, unspecified; J44.9 Chronic obstructive pulmonary disease, unspecified; E11.9 Type 2 diabetes mellitus without complications; F17.210 Nicotine dependence, cigarettes, uncomplicated; Z86.16 Personal history of COVID-19; Z79.82 Long term (current) use of aspirin; Z79.899 Other long term (current) drug therapy; Z88.5 Allergy status to narcotic agent; Z91.018 Allergy to other foods; Z88.8 Allergy status to other drugs, medicaments and biological substances; Z91.048 Other nonmedicinal substance allergy status; X50.1XXA Overexertion from prolonged static or awkward postures, initial encounter
CPT/HCPCS: 73501-26-RT; 73501-RT; 99283

== ENCOUNTER 2024-01-14 23:37 | Emergency (ER) | payer MEDICARE, MEDICAID ==
[2024-01-15 00:02] VITALS: BP 122/71; PULSE 63
[2024-01-15] MEDS: Acetaminophen/oxyCODONE 325-10 MG Tab PO PRN (00:53)
== END 2024-01-15 01:42 | disposition home or self-care (01) ==
LOC: JP.ED 23:37
DX: S90.122A Contusion of left lesser toe(s) without damage to nail, initial encounter (principal); E11.621 Type 2 diabetes mellitus with foot ulcer; L97.521 Non-pressure chronic ulcer of other part of left foot limited to breakdown of skin; I48.91 Unspecified atrial fibrillation; I10 Essential (primary) hypertension; J44.9 Chronic obstructive pulmonary disease, unspecified; E11.40 Type 2 diabetes mellitus with diabetic neuropathy, unspecified; F17.210 Nicotine dependence, cigarettes, uncomplicated; Z88.5 Allergy status to narcotic agent; Z88.8 Allergy status to other drugs, medicaments and biological substances; Z79.899 Other long term (current) drug therapy; Z79.82 Long term (current) use of aspirin; W18.43XA Slipping, tripping and stumbling without falling due to stepping from one level to another, initial encounter
CPT/HCPCS: 73630; 99283; A9270

== ENCOUNTER 2024-05-27 22:43 | Emergency (ER) | payer MEDICARE, MEDICAID ==
[2024-05-27 22:56] VITALS: BP 112/81; PULSE 74
== END 2024-05-28 00:16 | disposition home or self-care (01) ==
LOC: JP.ED 22:43
DX: H10.9 Unspecified conjunctivitis (principal); I10 Essential (primary) hypertension; J44.9 Chronic obstructive pulmonary disease, unspecified; E11.40 Type 2 diabetes mellitus with diabetic neuropathy, unspecified; F17.200 Nicotine dependence, unspecified, uncomplicated; Z86.16 Personal history of COVID-19; Z79.82 Long term (current) use of aspirin; Z79.899 Other long term (current) drug therapy; Z79.2 Long term (current) use of antibiotics; Z88.8 Allergy status to other drugs, medicaments and biological substances; Z88.5 Allergy status to narcotic agent; Z91.018 Allergy to other foods; Z88.6 Allergy status to analgesic agent
CPT/HCPCS: 99283

== ENCOUNTER 2024-08-01 23:52 | Emergency (ER) | payer MEDICARE, MEDICAID ==
[2024-08-02 00:06] VITALS: BP 115/79; PULSE 87
[2024-08-02 00:16] LABS: BASOPHILS PERCENT AUTO 0.2 % (0.1-1.3); EOSINOPHILS ABSOLUTE AUTO 0.13 K/uL (0.00-0.40); EOSINOPHILS PERCENT AUTO 1.4 % (0.0-5.4); HEMATOCRIT 37.8 % (38.4-49.7); HEMOGLOBIN 12.6 g/dL (12.9-16.9); IMMATURE GRAN ABSOLUTE AUTO 0.11 K/uL (0.00-0.23); IMMATURE GRAN PERCENT AUTO 1.2 % (0.0-0.7); LYMPHOCYTES ABSOLUTE AUTO 2.92 K/uL (0.8-3.3); LYMPHOCYTES PERCENT AUTO 32.4 % (11.4-47.7); MEAN CORPUSCULAR HEMOGLOBIN 27.2 pg (31.6-35.5); MEAN CORPUSCULAR HGB CONC 33.3 g/dL (31.6-35.5); MEAN CORPUSCULAR VOLUME 81.6 fL (81.4-99.0); MONOCYTES ABSOLUTE AUTO 0.68 K/uL (0.20-0.90); MONOCYTES PERCENT AUTO 7.6 % (3.3-12.6); NEUTROPHILS ABSOLUTE AUTO 5.14 K/uL (1.0-7.6); NEUTROPHILS PERCENT AUTO 57.2 % (40.0-78.1); PLATELET COUNT,PLT 245 K/uL (130-375); RED BLOOD CELL COUNT 4.63 M/uL (4.14-5.76)
[2024-08-02 00:23] LABS: BASOPHILS ABSOLUTE AUTO 0.02 K/uL (0.00-0.10)
[2024-08-02 00:28] LABS: ANION GAP 9.1 mmol/L (5.0-14.0); CALCIUM 8.7 mg/dL (8.5-10.1); EST CRCL DRUG DOSING (CG) 89.46 mL/min; POTASSIUM,K 4.1 mmol/L (3.6-5.2)
[2024-08-02 00:33] LABS: APPEARANCE,URINE CLEAR (CLEAR); BILIRUBIN,URINE NEGATIVE (NEGATIVE); COLOR,URINE YELLOW (YELLOW); GLUCOSE,URINE NEGATIVE (NEGATIVE); KETONES,URINE NEGATIVE (NEGATIVE); LEUKOCYTE ESTERASE,URINE NEGATIVE (NEGATIVE); NITRITE,URINE NEGATIVE (NEGATIVE); OCCULT BLOOD,URINE NEGATIVE (NEGATIVE); PROTEIN,URINE NEGATIVE (NEGATIVE)
[2024-08-02] MEDS: Methocarbamol 500 MG Tab PO ONE (00:33)
[2024-08-02 01:00] LABS: AMORPHOUS SEDIMENT,URINE NOT SEEN; BACTERIA,URINE FEW; EPITHELIAL CELLS,URINE RARE; MUCUS,URINE NOT SEEN; RBC,URINE 0-5 (0-5); WBC,URINE 0-5 (0-5)
== END 2024-08-02 01:26 | disposition home or self-care (01) ==
LOC: JP.ED 23:52
DX: M62.830 Muscle spasm of back (principal); I10 Essential (primary) hypertension; E78.00 Pure hypercholesterolemia, unspecified; J44.89 Other specified chronic obstructive pulmonary disease; E11.9 Type 2 diabetes mellitus without complications; Z79.899 Other long term (current) drug therapy; Z79.82 Long term (current) use of aspirin; Z88.8 Allergy status to other drugs, medicaments and biological substances; Z91.018 Allergy to other foods; Z88.5 Allergy status to narcotic agent; Z91.048 Other nonmedicinal substance allergy status
CPT/HCPCS: 36415; 80048; 81001; 85025; 99283; A9270

== ENCOUNTER 2024-11-14 12:52 | Emergency (ER) | payer MEDICARE, MEDICAID ==
[2024-11-14 13:07] VITALS: BP 103/66; PULSE 88
== END 2024-11-14 17:03 | disposition home or self-care (01) ==
LOC: JP.ED 12:52
DX: S29.9XXA Unspecified injury of thorax, initial encounter (principal); I10 Essential (primary) hypertension; J44.9 Chronic obstructive pulmonary disease, unspecified; K21.9 Gastro-esophageal reflux disease without esophagitis; E11.40 Type 2 diabetes mellitus with diabetic neuropathy, unspecified; F17.210 Nicotine dependence, cigarettes, uncomplicated; Z79.899 Other long term (current) drug therapy; Z79.82 Long term (current) use of aspirin; Z79.2 Long term (current) use of antibiotics; Z88.6 Allergy status to analgesic agent; Z91.018 Allergy to other foods; Z88.8 Allergy status to other drugs, medicaments and biological substances; W00.0XXA Fall on same level due to ice and snow, initial encounter
CPT/HCPCS: 71250; 71250-26; 74176; 74176-26; 99283

== ENCOUNTER 2024-12-21 02:53 | Emergency (ER) | payer MEDICARE, MEDICAID ==
[2024-12-21] MEDS: Acetaminophen/HYDROcodone 325-10 MG Tab PO ONE (04:27)
[2024-12-21 04:31] VITALS: BP 103/68; PULSE 61
== END 2024-12-21 04:39 | disposition home or self-care (01) ==
LOC: JP.ED 02:53
DX: M62.830 Muscle spasm of back (principal); I10 Essential (primary) hypertension; E78.00 Pure hypercholesterolemia, unspecified; J44.9 Chronic obstructive pulmonary disease, unspecified; E11.9 Type 2 diabetes mellitus without complications; F17.210 Nicotine dependence, cigarettes, uncomplicated; Z79.899 Other long term (current) drug therapy; Z79.82 Long term (current) use of aspirin; Z79.2 Long term (current) use of antibiotics; Z88.5 Allergy status to narcotic agent; Z91.018 Allergy to other foods; Z88.8 Allergy status to other drugs, medicaments and biological substances; Z88.6 Allergy status to analgesic agent
CPT/HCPCS: 70450; 73030; 99284; A9270

== ENCOUNTER 2024-12-23 12:09 | Emergency (ER) | payer MEDICARE, MEDICAID ==
[2024-12-23 12:27] VITALS: BP 109/80; PULSE 82
== END 2024-12-23 14:47 | disposition home or self-care (01) ==
LOC: JP.ED 12:09
DX: S86.912A Strain of unspecified muscle(s) and tendon(s) at lower leg level, left leg, initial encounter (principal); I10 Essential (primary) hypertension; E78.00 Pure hypercholesterolemia, unspecified; M19.90 Unspecified osteoarthritis, unspecified site; E11.9 Type 2 diabetes mellitus without complications; J45.909 Unspecified asthma, uncomplicated; Z88.8 Allergy status to other drugs, medicaments and biological substances; Z91.018 Allergy to other foods; Z79.899 Other long term (current) drug therapy; Z79.82 Long term (current) use of aspirin; Z87.891 Personal history of nicotine dependence; W18.30XA Fall on same level, unspecified, initial encounter; Y93.9 Activity, unspecified; Y92.9 Unspecified place or not applicable
CPT/HCPCS: 73562-26-LT; 73562-LT; 99283

== ENCOUNTER 2025-01-13 15:41 | Emergency (ER) | payer MEDICARE, MEDICAID ==
[2025-01-13 16:08] VITALS: BP 120/81; PULSE 89
[2025-01-13] MEDS: Ketorolac 30 MG/ML SDV IM ONE (16:41)
[2025-01-13] MEDS: oxyCODONE 5 MG Tab PO ONE (17:34)
== END 2025-01-13 17:38 | disposition home or self-care (01) ==
LOC: JP.ED 15:41
DX: G89.18 Other acute postprocedural pain (principal); I10 Essential (primary) hypertension; E78.00 Pure hypercholesterolemia, unspecified; J45.909 Unspecified asthma, uncomplicated; M19.90 Unspecified osteoarthritis, unspecified site; E11.9 Type 2 diabetes mellitus without complications; Z88.6 Allergy status to analgesic agent; Z91.018 Allergy to other foods; Z91.048 Other nonmedicinal substance allergy status; Z88.8 Allergy status to other drugs, medicaments and biological substances
CPT/HCPCS: 96372; 99283; A9270; J1885

== ENCOUNTER 2025-03-02 17:24 | Emergency (ER) | payer MEDICARE, MEDICAID ==
[2025-03-02 19:47] LABS: BASOPHILS PERCENT AUTO 0.2 % (0.1-1.3); EOSINOPHILS ABSOLUTE AUTO 0.11 K/uL (0.00-0.40); EOSINOPHILS PERCENT AUTO 1.8 % (0.0-5.4); HEMATOCRIT 38.1 % (38.4-49.7); HEMOGLOBIN 12.1 g/dL (12.9-16.9); IMMATURE GRAN PERCENT AUTO 0.3 % (0.0-0.7); LYMPHOCYTES ABSOLUTE AUTO 2.14 K/uL (0.8-3.3); LYMPHOCYTES PERCENT AUTO 35.8 % (11.4-47.7); MEAN CORPUSCULAR HEMOGLOBIN 27.7 pg (31.6-35.5); MEAN CORPUSCULAR HGB CONC 31.8 g/dL (31.6-35.5); MEAN CORPUSCULAR VOLUME 87.2 fL (81.4-99.0); MONOCYTES ABSOLUTE AUTO 0.45 K/uL (0.20-0.90); MONOCYTES PERCENT AUTO 7.5 % (3.3-12.6); NEUTROPHILS ABSOLUTE AUTO 3.24 K/uL (1.0-7.6); NEUTROPHILS PERCENT AUTO 54.4 % (40.0-78.1); PLATELET COUNT,PLT 238 K/uL (130-375); RED BLOOD CELL COUNT 4.37 M/uL (4.14-5.76)
[2025-03-02 19:48] LABS: BASOPHILS ABSOLUTE AUTO 0.01 K/uL (0.00-0.10); IMMATURE GRAN ABSOLUTE AUTO 0.02 K/uL (0.00-0.23)
[2025-03-02 20:11] LABS: A/G RATIO 1.1 (1.2-2.2); ALANINE AMINOTRANSFERASE,ALT 50 U/L (12-78); ALBUMIN 3.4 g/dL (3.4-5.0); ALKALINE PHOSPHATASE 91 U/L (46-116); ANION GAP 8.3 mmol/L (5.0-14.0); ASPARTATE AMNIOTRANSFERASE,AST 31 U/L (15-37); BILIRUBIN TOTAL 0.3 mg/dL (0.2-1.0); BLOOD UREA NITROGEN,BUN 7 mg/dL (7-18); CARBON DIOXIDE,CO2 28 mmol/L (21-32); CHLORIDE,CL 107 mmol/L (100-108); CREATININE 0.7 mg/dL (0.8-1.3); ESTIMATED GFR 107 mL/min (>60); GLUCOSE RANDOM 101 mg/dL (74-106); POTASSIUM,K 4.2 mmol/L (3.6-5.2); PROTEIN TOTAL,TP 6.5 g/dL (6.4-8.2); SODIUM,NA 143 mmol/L (140-148); TROPONIN I HIGH SENSITIVITY 6.7 pg/mL (<=60.3)
[2025-03-02] MEDS: Iopamidol 755 Mg/ML 100 ML Bottle IV SCH (21:42)
[2025-03-02] MEDS: Sodium Chloride 0.9% 100 ML IV SCH (21:42)
[2025-03-02 22:09] VITALS: BP 100/66; PULSE 64
== END 2025-03-02 22:32 | disposition home or self-care (01) ==
LOC: JP.ED 17:24
DX: R55 Syncope and collapse (principal); R07.89 Other chest pain; R06.02 Shortness of breath; I10 Essential (primary) hypertension; E78.00 Pure hypercholesterolemia, unspecified; J44.89 Other specified chronic obstructive pulmonary disease; M19.90 Unspecified osteoarthritis, unspecified site; E11.9 Type 2 diabetes mellitus without complications; F17.200 Nicotine dependence, unspecified, uncomplicated; Z86.73 Personal history of transient ischemic attack (TIA), and cerebral infarction without residual deficits; Z98.84 Bariatric surgery status; Z88.5 Allergy status to narcotic agent; Z88.8 Allergy status to other drugs, medicaments and biological substances; Z91.018 Allergy to other foods; Z79.82 Long term (current) use of aspirin; Z79.899 Other long term (current) drug therapy
CPT/HCPCS: 36415; 71046; 71275; 80053; 84484; 85025; 85379; 93005; 99285; Q9967

== ENCOUNTER 2025-05-13 00:31 | Emergency (ER) | payer MEDICARE, MEDICAID ==
[2025-05-13 01:26] LABS: BASOPHILS PERCENT AUTO 0.2 % (0.1-1.3); EOSINOPHILS ABSOLUTE AUTO 0.16 K/uL (0.00-0.40); EOSINOPHILS PERCENT AUTO 2.5 % (0.0-5.4); IMMATURE GRAN PERCENT AUTO 0.2 % (0.0-0.7); LYMPHOCYTES ABSOLUTE AUTO 1.72 K/uL (0.8-3.3); LYMPHOCYTES PERCENT AUTO 26.8 % (11.4-47.7); MONOCYTES ABSOLUTE AUTO 0.57 K/uL (0.20-0.90); MONOCYTES PERCENT AUTO 8.9 % (3.3-12.6); NEUTROPHILS ABSOLUTE AUTO 3.95 K/uL (1.0-7.6); NEUTROPHILS PERCENT AUTO 61.4 % (40.0-78.1); PLATELET COUNT,PLT 222 K/uL (130-375); RED BLOOD CELL COUNT 3.96 M/uL (4.14-5.76); WHITE BLOOD CELL COUNT,WBC 6.4 K/uL (3.2-11.0)
[2025-05-13 01:28] LABS: BASOPHILS ABSOLUTE AUTO 0.01 K/uL (0.00-0.10); IMMATURE GRAN ABSOLUTE AUTO 0.01 K/uL (0.00-0.23)
[2025-05-13 01:42] LABS: BLOOD UREA NITROGEN,BUN 17.0 mg/dL (7-18); CARBON DIOXIDE,CO2 28.0 mmol/L (21-32); CHLORIDE,CL 109.0 mmol/L (100-108); CREATININE 0.7 mg/dL (0.8-1.3); EST CRCL DRUG DOSING (CG) 127.79 mL/min; ESTIMATED GFR 107.0 mL/min (>60); GLUCOSE RANDOM 94.0 mg/dL (74-106); POTASSIUM,K 4.0 mmol/L (3.6-5.2); SODIUM,NA 143.0 mmol/L (140-148)
[2025-05-13] MEDS: Ketorolac 30 MG/ML SDV IVPUSH ONE (01:43)
[2025-05-13] MEDS: Ketorolac 30 MG/ML SDV IM ONE (01:45)
[2025-05-13 01:51] VITALS: BP 104/67; PULSE 64
[2025-05-13 02:08] LABS: AMPHETAMINES SCREEN, URINE NEGATIVE (NEGATIVE); METHADONE SCREEN, URINE NEGATIVE (NEGATIVE); METHAMPHETAMINES SCREEN, URINE NEGATIVE (NEGATIVE); OXYCODONE SCREEN,URINE NEGATIVE (NEGATIVE); PROPOXYPHENE SCREEN,URINE NEGATIVE (NEGATIVE); THC SCREEN,URINE 50 NG/ML PRESUMPTIVE POSITIVE (NEGATIVE)
== END 2025-05-13 02:27 | disposition home or self-care (01) ==
LOC: JP.ED 00:31
DX: M62.830 Muscle spasm of back (principal); I48.91 Unspecified atrial fibrillation; E78.00 Pure hypercholesterolemia, unspecified; I10 Essential (primary) hypertension; E11.9 Type 2 diabetes mellitus without complications; F17.210 Nicotine dependence, cigarettes, uncomplicated; Z91.018 Allergy to other foods; Z86.73 Personal history of transient ischemic attack (TIA), and cerebral infarction without residual deficits; Z88.8 Allergy status to other drugs, medicaments and biological substances; Z88.5 Allergy status to narcotic agent; Z91.048 Other nonmedicinal substance allergy status; Z79.899 Other long term (current) drug therapy
CPT/HCPCS: 36415; 80048; 80305; 85025; 96374; 99284; A9270; J1885

== ENCOUNTER 2025-05-17 20:18 | Emergency (ER) | payer MEDICARE, MEDICAID ==
[2025-05-17 20:45] LABS: PLATELET COUNT,PLT 227 K/uL (130-375); RED BLOOD CELL COUNT 4.37 M/uL (4.14-5.76); WHITE BLOOD CELL COUNT,WBC 7.1 K/uL (3.2-11.0)
[2025-05-17 20:51] LABS: ATYPICAL LYMPHOCYTES FEW; BAND ABSOLUTE MAN 0.14 K/uL; BAND PERCENT MAN 2 % (5-11); LYMPHOCYTES ABSOLUTE MAN 3.41 K/uL (0.8-3.3); LYMPHOCYTES PERCENT MAN 48 % (24-44); MONOCYTES ABSOLUTE MAN 0.50 K/uL (0.20-0.90); MONOCYTES PERCENT MAN 7 % (2-6); NEUTROPHILS ABSOLUTE MAN 3.05 K/uL (1.0-7.6); SEG NEUTROPHILS PERCENT MAN 43 % (36-66)
[2025-05-17 20:52] VITALS: BP 109/76; PULSE 94
[2025-05-17 20:54] LABS: A/G RATIO 1.2 (1.2-2.2); ALANINE AMINOTRANSFERASE,ALT 43 U/L (12-78); ASPARTATE AMNIOTRANSFERASE,AST 29 U/L (15-37); BILIRUBIN TOTAL 0.4 mg/dL (0.2-1.0); BLOOD UREA NITROGEN,BUN 16 mg/dL (7-18); CARBON DIOXIDE,CO2 25 mmol/L (21-32); CHLORIDE,CL 106 mmol/L (100-108); CREATININE 0.8 mg/dL (0.8-1.3); ESTIMATED GFR 103 mL/min (>60); GLUCOSE RANDOM 96 mg/dL (74-106); POTASSIUM,K 4.5 mmol/L (3.6-5.2); PROTEIN TOTAL,TP 7.2 g/dL (6.4-8.2); SODIUM,NA 142 mmol/L (140-148)
[2025-05-17] MEDS ORDERED: Lidocaine 1% with EPINEPHrine 1:100,000 20 ML MDV INJECT ONE (21:28)
[2025-05-17] MEDS: Iopamidol 612 MG/ML 100 ML Bottle IV ONE (22:09)
[2025-05-17] MEDS: Bacitracin Oint 1 GM U/D Packet TOP ONE (22:59)
[2025-05-17] MEDS: Lidocaine 1% with EPINEPHrine 1:100,000 20 ML MDV INJECT ONE (23:09)
== END 2025-05-17 23:50 | disposition home or self-care (01) ==
LOC: JP.ED 20:21
DX: S01.81XA Laceration without foreign body of other part of head, initial encounter (principal); R10.9 Unspecified abdominal pain; I48.91 Unspecified atrial fibrillation; I10 Essential (primary) hypertension; J44.9 Chronic obstructive pulmonary disease, unspecified; E11.9 Type 2 diabetes mellitus without complications; Z86.73 Personal history of transient ischemic attack (TIA), and cerebral infarction without residual deficits; Z79.899 Other long term (current) drug therapy; Z79.82 Long term (current) use of aspirin; Z88.8 Allergy status to other drugs, medicaments and biological substances; Z91.018 Allergy to other foods; Z91.048 Other nonmedicinal substance allergy status; Z88.5 Allergy status to narcotic agent; W11.XXXA Fall on and from ladder, initial encounter
CPT/HCPCS: 12011; 36415; 70450; 70486; 71260; 72126; 74177; 76377; 80053; 80307; 85025; 86850; 86900; 86901; 96374; 99283; 99284; A9270; J2004; Q9967; J1171

== ENCOUNTER 2025-06-14 02:49 | Emergency (ER) | payer MEDICARE, MEDICAID ==
[2025-06-14 03:18] LABS: PLATELET COUNT,PLT 200 K/uL (130-375); RED BLOOD CELL COUNT 4.07 M/uL (4.14-5.76); WHITE BLOOD CELL COUNT,WBC 6.2 K/uL (3.2-11.0)
[2025-06-14 03:34] LABS: ATYPICAL LYMPHOCYTES FEW; EOSINOPHILS ABSOLUTE MAN 0.25 K/uL (0.00-0.40); EOSINOPHILS PERCENT MAN 4 % (2-4); LYMPHOCYTES ABSOLUTE MAN 1.98 K/uL (0.8-3.3); LYMPHOCYTES PERCENT MAN 32 % (24-44); MONOCYTES ABSOLUTE MAN 0.62 K/uL (0.20-0.90); MONOCYTES PERCENT MAN 10 % (2-6); NEUTROPHILS ABSOLUTE MAN 3.35 K/uL (1.0-7.6); SEG NEUTROPHILS PERCENT MAN 54 % (36-66)
[2025-06-14 03:43] LABS: A/G RATIO 1.1 (1.2-2.2); ALANINE AMINOTRANSFERASE,ALT 37 U/L (12-78); ASPARTATE AMNIOTRANSFERASE,AST 26 U/L (15-37); BILIRUBIN TOTAL 0.2 mg/dL (0.2-1.0); BLOOD UREA NITROGEN,BUN 10 mg/dL (7-18); CARBON DIOXIDE,CO2 28 mmol/L (21-32); CHLORIDE,CL 108 mmol/L (100-108); CREATININE 0.7 mg/dL (0.8-1.3); EST CRCL DRUG DOSING (CG) 126.25 mL/min; ESTIMATED GFR 107 mL/min (>60); GLUCOSE RANDOM 74 mg/dL (74-106); POTASSIUM,K 4.4 mmol/L (3.6-5.2); PROTEIN TOTAL,TP 6.4 g/dL (6.4-8.2); SODIUM,NA 141 mmol/L (140-148); TROPONIN I HIGH SENSITIVITY 4.1 pg/mL (<=60.3)
[2025-06-14 04:54] VITALS: BP 95/60; PULSE 73
== END 2025-06-14 06:41 | disposition home or self-care (01) ==
LOC: JP.ED 02:49
DX: M62.838 Other muscle spasm (principal); I10 Essential (primary) hypertension; E78.00 Pure hypercholesterolemia, unspecified; E11.9 Type 2 diabetes mellitus without complications; F17.200 Nicotine dependence, unspecified, uncomplicated; Z88.8 Allergy status to other drugs, medicaments and biological substances; Z91.018 Allergy to other foods; Z79.899 Other long term (current) drug therapy
CPT/HCPCS: 36415; 80053; 83605; 84484; 85025; 99284; A9270

== ENCOUNTER 2025-06-27 17:47 | Emergency (ER) | payer MEDICARE, MEDICAID ==
[2025-06-27 18:28] LABS: PLATELET COUNT,PLT 219 K/uL (130-375); RED BLOOD CELL COUNT 4.31 M/uL (4.14-5.76); WHITE BLOOD CELL COUNT,WBC 4.9 K/uL (3.2-11.0)
[2025-06-27 18:39] LABS: A/G RATIO 1.3 (1.2-2.2); ALANINE AMINOTRANSFERASE,ALT 40 U/L (12-78); ASPARTATE AMNIOTRANSFERASE,AST 37 U/L (15-37); BILIRUBIN TOTAL 0.7 mg/dL (0.2-1.0); BLOOD UREA NITROGEN,BUN 9 mg/dL (7-18); CARBON DIOXIDE,CO2 28 mmol/L (21-32); CHLORIDE,CL 104 mmol/L (100-108); CREATININE 0.6 mg/dL (0.8-1.3); EST CRCL DRUG DOSING (CG) 147.30 mL/min; ESTIMATED GFR 112 mL/min (>60); GLUCOSE RANDOM 105 mg/dL (74-106); POTASSIUM,K 4.1 mmol/L (3.6-5.2); PROTEIN TOTAL,TP 6.9 g/dL (6.4-8.2); SODIUM,NA 138 mmol/L (140-148)
[2025-06-27 18:51] LABS: ATYPICAL LYMPHOCYTES MODERATE; BAND ABSOLUTE MAN 0.05 K/uL; BAND PERCENT MAN 1 % (5-11); EOSINOPHILS ABSOLUTE MAN 0.10 K/uL (0.00-0.40); EOSINOPHILS PERCENT MAN 2 % (2-4); LYMPHOCYTES ABSOLUTE MAN 1.86 K/uL (0.8-3.3); LYMPHOCYTES PERCENT MAN 38 % (24-44); MONOCYTES ABSOLUTE MAN 0.34 K/uL (0.20-0.90); MONOCYTES PERCENT MAN 7 % (2-6); NEUTROPHILS ABSOLUTE MAN 2.55 K/uL (1.0-7.6); SEG NEUTROPHILS PERCENT MAN 52 % (36-66)
[2025-06-27 19:34] LABS: APPEARANCE,URINE CLEAR (CLEAR); GLUCOSE,URINE NEGATIVE (NEGATIVE); OCCULT BLOOD,URINE NEGATIVE (NEGATIVE)
[2025-06-27 19:41] LABS: AMPHETAMINES SCREEN, URINE NEGATIVE (NEGATIVE); METHADONE SCREEN, URINE NEGATIVE (NEGATIVE); METHAMPHETAMINES SCREEN, URINE NEGATIVE (NEGATIVE); OXYCODONE SCREEN,URINE NEGATIVE (NEGATIVE); PROPOXYPHENE SCREEN,URINE NEGATIVE (NEGATIVE); SQUAMOUS EPITHELIAL CELLS,UR RARE /HPF; THC SCREEN,URINE 50 NG/ML PRESUMPTIVE POSITIVE (NEGATIVE); UROTHELIAL CELLS,URINE NOT SEEN /HPF
[2025-06-27 20:59] VITALS: BP 108/53; PULSE 65
[2025-06-27] MEDS: Bacitracin Oint 1 GM U/D Packet TOP ONE (21:20)
[2025-06-27] MEDS: Acetaminophen/HYDROcodone 325-5 MG Tab PO ONE (21:20)
== END 2025-06-27 21:25 | disposition home or self-care (01) ==
LOC: JP.ED 17:47
DX: S00.03XA Contusion of scalp, initial encounter (principal); S80.01XA Contusion of right knee, initial encounter; S40.011A Contusion of right shoulder, initial encounter; S90.01XA Contusion of right ankle, initial encounter; I10 Essential (primary) hypertension; J44.89 Other specified chronic obstructive pulmonary disease; K21.9 Gastro-esophageal reflux disease without esophagitis; M19.90 Unspecified osteoarthritis, unspecified site; E11.9 Type 2 diabetes mellitus without complications; Z98.84 Bariatric surgery status; Z88.5 Allergy status to narcotic agent; Z88.8 Allergy status to other drugs, medicaments and biological substances; Z91.018 Allergy to other foods; Z79.51 Long term (current) use of inhaled steroids; Z79.82 Long term (current) use of aspirin; Z79.899 Other long term (current) drug therapy; W22.8XXA Striking against or struck by other objects, initial encounter
CPT/HCPCS: 36415; 70450; 72125; 73030; 73562; 73610; 76377; 80053; 80305; 81001; 85025; 96361; 96374; 99284; A9270; J7030; J1171

== ENCOUNTER 2025-08-02 21:06 | Emergency (ER) | payer MEDICARE, MEDICAID ==
[2025-08-02 21:16] VITALS: BP 101/63; PULSE 88
== END 2025-08-02 21:55 | disposition left against medical advice (07) ==
LOC: JP.ED 21:06
DX: S80.212A Abrasion, left knee, initial encounter (principal); S40.211A Abrasion of right shoulder, initial encounter; F10.20 Alcohol dependence, uncomplicated; M25.552 Pain in left hip; R10.22 Pelvic and perineal pain left side; Y92.480 Sidewalk as the place of occurrence of the external cause; I10 Essential (primary) hypertension; E78.00 Pure hypercholesterolemia, unspecified; J45.909 Unspecified asthma, uncomplicated; E11.9 Type 2 diabetes mellitus without complications; Z86.73 Personal history of transient ischemic attack (TIA), and cerebral infarction without residual deficits; F17.200 Nicotine dependence, unspecified, uncomplicated; Z79.82 Long term (current) use of aspirin; Z79.899 Other long term (current) drug therapy; Z88.8 Allergy status to other drugs, medicaments and biological substances; Z91.018 Allergy to other foods; Z91.048 Other nonmedicinal substance allergy status; Z88.5 Allergy status to narcotic agent; V18.2XXA Unspecified pedal cyclist injured in noncollision transport accident in nontraffic accident, initial encounter; Y93.55 Activity, bike riding
CPT/HCPCS: 99282; 99284

== ENCOUNTER 2025-08-30 21:17 | Emergency (ER) | payer MEDICARE, MEDICAID ==
[2025-08-30 21:40] VITALS: BP 111/72; PULSE 77
== END 2025-08-30 21:42 ==
LOC: JP.ED 21:17
DX: T78.19XA Other adverse food reactions, not elsewhere classified, initial encounter (principal); E78.00 Pure hypercholesterolemia, unspecified; I10 Essential (primary) hypertension; E11.40 Type 2 diabetes mellitus with diabetic neuropathy, unspecified; Z91.018 Allergy to other foods; Z91.010 Allergy to peanuts; Z88.8 Allergy status to other drugs, medicaments and biological substances; Z79.899 Other long term (current) drug therapy; Z86.73 Personal history of transient ischemic attack (TIA), and cerebral infarction without residual deficits
CPT/HCPCS: 99283

== ENCOUNTER 2025-08-31 13:17 | Emergency (ER) | payer MEDICARE, MEDICAID ==
[2025-08-31 14:21] LABS: APPEARANCE,URINE CLEAR (CLEAR); GLUCOSE,URINE NEGATIVE (NEGATIVE); OCCULT BLOOD,URINE NEGATIVE (NEGATIVE)
[2025-08-31 14:22] LABS: BASOPHILS ABSOLUTE AUTO 0.02 K/uL (0.00-0.10); BASOPHILS PERCENT AUTO 0.3 % (0.1-1.3); EOSINOPHILS ABSOLUTE AUTO 0.07 K/uL (0.00-0.40); EOSINOPHILS PERCENT AUTO 0.9 % (0.0-5.4); IMMATURE GRAN ABSOLUTE AUTO 0.02 K/uL (0.00-0.23); IMMATURE GRAN PERCENT AUTO 0.3 % (0.0-0.7); LYMPHOCYTES ABSOLUTE AUTO 2.61 K/uL (0.8-3.3); LYMPHOCYTES PERCENT AUTO 32.6 % (11.4-47.7); MONOCYTES ABSOLUTE AUTO 0.58 K/uL (0.20-0.90); MONOCYTES PERCENT AUTO 7.3 % (3.3-12.6); NEUTROPHILS ABSOLUTE AUTO 4.70 K/uL (1.0-7.6); NEUTROPHILS PERCENT AUTO 58.6 % (40.0-78.1); PLATELET COUNT,PLT 246 K/uL (130-375); RED BLOOD CELL COUNT 4.80 M/uL (4.14-5.76); WHITE BLOOD CELL COUNT,WBC 8.0 K/uL (3.2-11.0)
[2025-08-31 14:36] LABS: SQUAMOUS EPITHELIAL CELLS,UR RARE /HPF; UROTHELIAL CELLS,URINE NOT SEEN /HPF
[2025-08-31 14:43] LABS: A/G RATIO 1.2 (1.2-2.2); ALANINE AMINOTRANSFERASE,ALT 50 U/L (12-78); ASPARTATE AMNIOTRANSFERASE,AST 42 U/L (15-37); BILIRUBIN TOTAL 0.6 mg/dL (0.2-1.0); BLOOD UREA NITROGEN,BUN 12 mg/dL (7-18); CARBON DIOXIDE,CO2 26 mmol/L (21-32); CHLORIDE,CL 106 mmol/L (100-108); CREATININE 0.7 mg/dL (0.8-1.3); EST CRCL DRUG DOSING (CG) 126.25 mL/min; ESTIMATED GFR 107 mL/min (>60); GLUCOSE RANDOM 103 mg/dL (74-106); POTASSIUM,K 3.9 mmol/L (3.6-5.2); PROTEIN TOTAL,TP 6.6 g/dL (6.4-8.2); SODIUM,NA 140 mmol/L (140-148)
[2025-08-31] MEDS: Ketorolac 30 MG/ML SDV IM ONE (15:28)
[2025-08-31] MEDS: methylPREDNISolone Acetate 80 MG/ML SDV IM ONE (15:28)
[2025-08-31 16:15] VITALS: BP 113/70; PULSE 60
== END 2025-08-31 16:10 ==
LOC: JP.ED 13:17
DX: M62.838 Other muscle spasm (principal); M54.2 Cervicalgia; I10 Essential (primary) hypertension; I48.91 Unspecified atrial fibrillation; J44.89 Other specified chronic obstructive pulmonary disease; E11.9 Type 2 diabetes mellitus without complications; Z86.73 Personal history of transient ischemic attack (TIA), and cerebral infarction without residual deficits; F17.210 Nicotine dependence, cigarettes, uncomplicated; Z79.899 Other long term (current) drug therapy; Z79.82 Long term (current) use of aspirin; Z88.5 Allergy status to narcotic agent; Z88.8 Allergy status to other drugs, medicaments and biological substances; Z91.010 Allergy to peanuts; Z91.018 Allergy to other foods
CPT/HCPCS: 36415; 71046; 71046-26; 80053; 81001; 84484; 85025; 93005; 96372; 99285; J1010; J1885

== ENCOUNTER 2025-09-03 23:26 | Emergency (ER) | payer MEDICARE, MEDICAID ==
[2025-09-03 23:34] LABS: BASOPHILS ABSOLUTE AUTO 0.01 K/uL (0.00-0.10); BASOPHILS PERCENT AUTO 0.2 % (0.1-1.3); EOSINOPHILS ABSOLUTE AUTO 0.04 K/uL (0.00-0.40); EOSINOPHILS PERCENT AUTO 0.7 % (0.0-5.4); IMMATURE GRAN ABSOLUTE AUTO 0.01 K/uL (0.00-0.23); IMMATURE GRAN PERCENT AUTO 0.2 % (0.0-0.7); LYMPHOCYTES ABSOLUTE AUTO 1.21 K/uL (0.8-3.3); LYMPHOCYTES PERCENT AUTO 20.0 % (11.4-47.7); MONOCYTES ABSOLUTE AUTO 0.21 K/uL (0.20-0.90); MONOCYTES PERCENT AUTO 3.5 % (3.3-12.6); NEUTROPHILS ABSOLUTE AUTO 4.56 K/uL (1.0-7.6); NEUTROPHILS PERCENT AUTO 75.4 % (40.0-78.1); PLATELET COUNT,PLT 230 K/uL (130-375); RED BLOOD CELL COUNT 4.68 M/uL (4.14-5.76); WHITE BLOOD CELL COUNT,WBC 6.0 K/uL (3.2-11.0)
[2025-09-03 23:46] LABS: INR 1.0; PTT,PARTIAL THROMBOPLSTIN TIME 23.9 sec (21.8-27.3)
[2025-09-03 23:49] LABS: A/G RATIO 1.2 (1.2-2.2); ALANINE AMINOTRANSFERASE,ALT 70 U/L (12-78); ASPARTATE AMNIOTRANSFERASE,AST 61 U/L (15-37); BILIRUBIN TOTAL 0.5 mg/dL (0.2-1.0); BLOOD UREA NITROGEN,BUN 16 mg/dL (7-18); CARBON DIOXIDE,CO2 26 mmol/L (21-32); CHLORIDE,CL 103 mmol/L (100-108); CREATININE 0.8 mg/dL (0.8-1.3); EST CRCL DRUG DOSING (CG) 110.47 mL/min; ESTIMATED GFR 103 mL/min (>60); GLUCOSE RANDOM 159 mg/dL (74-106); POTASSIUM,K 3.8 mmol/L (3.6-5.2); PROTEIN TOTAL,TP 6.3 g/dL (6.4-8.2); SODIUM,NA 139 mmol/L (140-148); TROPONIN I HIGH SENSITIVITY 4.2 pg/mL (<=60.3)
[2025-09-04] MEDS: Sodium Chloride 0.9% 10 ML Syringe FLUSH PRN (00:13)
[2025-09-04] MEDS: Iopamidol 755 Mg/ML 100 ML Bottle IV SCH (00:13)
[2025-09-04 00:34] VITALS: BP 97/65; PULSE 58
== END 2025-09-04 00:45 | disposition home or self-care (01) ==
LOC: JP.ED 23:26
DX: Z76.5 Malingerer [conscious simulation] (principal); F17.200 Nicotine dependence, unspecified, uncomplicated; I10 Essential (primary) hypertension; E78.00 Pure hypercholesterolemia, unspecified; I48.91 Unspecified atrial fibrillation; J44.89 Other specified chronic obstructive pulmonary disease; Z79.899 Other long term (current) drug therapy; Z91.010 Allergy to peanuts; Z91.018 Allergy to other foods; Z79.82 Long term (current) use of aspirin
CPT/HCPCS: 36415; 70450; 70496; 70498; 80053; 82947; 84484; 85025; 85610; 85730; 93005; 99285; Q9967